=== PATIENT | male | born 1940 | race Caucasian/White ===

== ENCOUNTER → 2016-08-31 | Outpatient (CLI) | payer OTHER, MEDICARE ==
[~2016-08-31] MED LIST: ASPCH81 PO; ASPEC325 PO; ATOR-24 PO; BIOT1TAB5 PO; CETI10TA84 PO; CLC100 PO; DICL-201 PO; GLUC1CAP35 PO; LOSA50TA6 PO; MORP15TA19 PO; MULT-506 PO; OXYC-57 PO; SIMV10TA5 PO
[2016-08-31 17:02] LABS: BLOOD UREA NITROGEN 21 mg/dl (7-18); CREATININE 0.93 mg/dl (0.60-1.40)
== END | disposition home or self-care (01) ==
LOC: C.LABBC 12:32
PROVIDERS: ATTEND Internal Medicine
DX: R10.9 Unspecified abdominal pain (principal)

== ENCOUNTER → 2016-09-03 | Outpatient (CLI) | payer OTHER, MEDICARE ==
[~2016-09-03] MED LIST changes: +OPTIRAY 320 IV PRN
--- NOTE | 2016-09-03 11:07 | DIAGNOSTIC IMAGING REPORT ---
CT ABD/PELVIS IV AND ORAL CONT CLINICAL HISTORY: Left-sided abdominal pain COMPARISON STUDY: July 02, 2012 TECHNIQUE: Following the IV administration of 119 mL of Optiray-320, CT scan of the abdomen and pelvis was performed from the lung bases to the proximal femurs. Images are reviewed in the axial, sagittal, and coronal planes. IV contrast was administered without complication. CT DOSE: 432.17 mGy.cm FINDINGS: Lower chest: There are bibasal atelectatic changes. Liver: There is a 5 mm hypodensity within the left lobe of the liver superiorly, likely representing a cyst. The hepatic and portal veins appear patent. Gallbladder: Unremarkable. Spleen: Normal in size and attenuation. Pancreas: Unremarkable. Adrenal glands: Unremarkable. Kidneys: There are bilateral renal cysts the largest of which measures 9 mm the right and 17 mm on the left. There is a lower pole posterior right renal cortical scar with infiltration of the surrounding fat. This could relate to a prior ablation or surgery. Bowel: There are no transition zones indicate bowel obstruction. There is no evidence of acute diverticulitis. Scattered diverticula are identified. By history the appendix is absent. Peritoneum: There is no intraperitoneal free air or abdominal ascites. There is a small fat-containing left inguinal hernia. Vasculature: The abdominal aorta is normal in course and caliber. Adenopathy: None. Pelvic viscera: Multiple prostate implant seeds are visualized. Skeletal structures: There is bilateral L5 spondylolysis. There is a grade 1/4 spondylolisthesis of L5 on S1. IMPRESSION: 1. No evidence of bowel obstruction. No evidence of free air 2. Scattered colonic diverticula. No evidence of acute diverticulitis 3. Small fat-containing left inguinal hernia. 4. Bilateral renal cysts and right renal cortical scar Electronically signed by: Tiago Chanel M.D. 09/03/2016 11:05 AM Dictated Date/Time: 09/03/2016 10:56 AM
== END | disposition home or self-care (01) ==
LOC: C.CTS 10:03
PROVIDERS: ATTEND Internal Medicine
DX: R10.9 Unspecified abdominal pain (principal); N28.1 Cyst of kidney, acquired

== ENCOUNTER 2016-09-17 10:00 | Inpatient (IN) | payer OTHER, MEDICARE ==
--- NOTE | 2016-09-09 17:07 | HISTORY & PHYSICAL EXAMINATION ---
DATE OF ADMISSION: 09/17/2016 CHIEF COMPLAINT: Left knee pain and discomfort. HISTORY OF PRESENT ILLNESS: A 76-year-old gentleman, patient of Dr. Castillo who continues to work in [employer] who presents for treatment of his left knee. He has got a several year history of left knee pain and discomfort that has gotten significantly worse over the past 7 months. He has been through extensive conservative treatment. He has had knee injected which gave him about a week of relief and that is it. Pain is mostly medial. He has trouble doing his job. The more he walks, the more it hurts. The pain has become incapacitating. No mechanical symptoms, just pain. Takes Advil regularly which helps a bit minimal. He has also tried Voltaren as well as Voltaren gel. He would now like to proceed with surgical treatment. PAST MEDICAL HISTORY: 1. Hypertension. 2. Elevated cholesterol. 3. Arthritis. 4. Prostate cancer status post resection. PAST SURGICAL HISTORY: Include: 1. Umbilical hernia. 2. Brachytherapy for prostate. ALLERGIES: PENICILLIN AND IODINE. CURRENT MEDICATIONS: Include: 1. Oral Voltaren pills. 2. Voltaren gel. 3. Centrum Silver. 4. Low dose aspirin. 5. Atorvastatin. 6. Losartan. 7. Biotin. SOCIAL HISTORY: A 76-year-old male. He is a patient of Dr. Castillo. Does not smoke. FAMILY HISTORY: Noncontributory. REVIEW OF SYSTEMS: Negative for diabetes, neurologic problems, vascular problems, bleeding disorders. Denies any chest pain, no shortness of breath. No history of DVT or PE. PHYSICAL EXAMINATION: GENERAL: Physical examination reveals a healthy, pleasant, middle-aged male. He looks younger than his stated age. HEENT: Benign. NECK: Supple. No lymphadenopathy. LUNGS: Clear to auscultation. HEART: Has a regular rate and rhythm. ABDOMEN: Soft, nontender, nondistended. EXTREMITIES: Grossly neurovascularly intact except as follows: Examination of the left knee reveals the patient walks with a slight bit of a lump. He has got slight varus alignment to his knee. A small knee effusion. Range of motion is 5 degrees short of full extension and 125 degrees of flexion. No instability. No pain with hip motion. X-RAYS: His x-rays of the left knee were reviewed. It shows advanced medial compartment DJD. He has got chondrocalcinosis laterally. It has progressed since his films a couple months ago. 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 This has progressed significantly over the past 6 months. He has failed conservative treatment and would like to have his left knee replaced. PLAN: We talked about treatment and he would like to have his left knee replaced. The risks and benefits of left knee replacement were explained to the patient including but not limited to DVT, PE, , infection, neurological injury, vascular injury, bleeding problem, pain, limited range of motion, stiffness, failure to relieve his symptoms, incomplete relief of symptoms, need for further surgery in the future, fracture, leg length inequality, nerve palsy, etc. The patient understands and desires to proceed. Informed consent was obtained. The patient does have some type of bladder issue and will need to have his Anaya placed by the urologist. We will try and do him first case as we have to do under ultrasound. We have alerted them of that. As far as discharge plans, he is planning to be discharged to home using the [facility] home health program with his 's assistance. EDILMA
[2016-09-10 08:29] VITALS: BMI 26.0
--- NOTE | 2016-09-10 09:06 | PAT Medication Instructions ---
Service Date Sep 10, 2016. Current Home Medication List Aspirin (Aspirin Tab-Chewable *), 81 MG PO HS Atorvastatin (Lipitor), 40 MG PO HS Biotin (Biotin), 1 TAB PO Q2D Cetirizine (Zyrtec), 10 MG PO DAILY PRN for SEASONAL Diclofenac (Voltaren), 75 MG PO BID Docusate Sodium (Colace *), 100 MG PO BID Bdrxkcdjyzm-Absmvcubmgm-Izq C- (Glucosamine Chondroitin), 1 CAP PO QAM Losartan Potassium (Cozaar), 50 MG PO HS Multivitamin (Multivitamin), 1 TAB PO QAM Medication Instructions For Your Scheduled Surgery Diclofenac (Voltaren), 75 MG PO BID (per surgeon instructions) - Hold the following medications starting 09/11/16: Rqljtwboiin-Wzbzkrqydbu-Kfm C- (Glucosamine Chondroitin), 1 CAP PO QAM - Hold the following medications the morning of surgery: Multivitamin (Multivitamin), 1 TAB PO QAM Docusate Sodium (Colace *), 100 MG PO BID Biotin (Biotin), 1 TAB PO Q2D Cetirizine (Zyrtec), 10 MG PO DAILY PRN for SEASONAL - Hold the following medications as scheduled the night before surgery: Losartan Potassium (Cozaar), 50 MG PO HS - Take the following medications as scheduled the night before surgery: Docusate Sodium (Colace *), 100 MG PO BID Cetirizine (Zyrtec), 10 MG PO DAILY PRN for SEASONAL Atorvastatin (Lipitor), 40 MG PO HS Aspirin (Aspirin Tab-Chewable *), 81 MG PO HS If you have any questions please call us at [phone] (Mandy Villa PA-C) or [phone] or [phone]
[2016-09-10 09:28] LABS: BASO % 0.9 %; BASO ABS # 0.06 K/uL (0-0.2); COMPLETE YES; EOS % 2.3 %; HEMATOCRIT 45.1 % (42-52); LYMPH % 15.7 %; LYMPH ABS # 1.03 K/uL (1.2-3.4); MEAN CELL VOLUME 96.2 fL (80-100); MEAN CORPUSCULAR HEMOGLOBIN 32.8 pg (25-34); MEAN CORPUSCULAR HGB CONC 34.1 g/dl (32-36); MEAN PLATELET VOLUME 10.1 fL (7.4-10.4); MONO % 10.2 %; NEUT % 70.9 %; PLATELET COUNT 207 K/uL (130-400); RED BLOOD COUNT 4.69 M/uL (4.7-6.1); WHITE BLOOD COUNT 6.56 K/uL (4.8-10.8)
[2016-09-10 09:37] LABS: PARTIAL THROMBOPLASTIN RATIO 1.1; PROTHROMBIN TIME (PATIENT) 11.2 SECONDS (9.0-12.0)
[2016-09-10 09:56] LABS: CALCIUM 9.5 mg/dl (8.5-10.1); CREATININE 0.92 mg/dl (0.60-1.40); POTASSIUM 4.9 mmol/L (3.5-5.1)
--- NOTE | 2016-09-10 09:58 | DIAGNOSTIC IMAGING REPORT ---
CHEST PREADMISSION(PA/LAT) CLINICAL HISTORY: Preoperative chest COMPARISON STUDY: None FINDINGS: The heart is normal in size. There is no failure. There is no lobar consolidation. Left hemithorax opacities are nonspecific, likely relate to underlying rib/pleural abnormalities..[ IMPRESSION: 1. No active disease in the chest 2. Left hemithorax opacities, likely related to chronic underlying rib/pleural abnormalities. Electronically signed by: Tiago Chanel M.D. 09/10/2016 9:57 AM Dictated Date/Time: 09/10/2016 9:55 AM
[2016-09-17] VITALS (7 sets, daily range): BP systolic 123–157; BP diastolic 68–88; PULSE 58–88; TEMP 36.6–36.9; O2SAT 95–97; Ht 172.7 cm; Wt 77.7 kg
[~2016-09-17] VITALS: Ht 172.7 cm; Wt 77.7 kg
[~2016-09-17 10:00] MED LIST changes: +ACETAMINOPHEN 500 MG TAB PO SCH; -ASPEC325 PO; +BUPIVACAINE 0.25% 30 ML VIAL ONE; +BUPIVACAINE 0.5 % 5 MG/1 ML PF 10ML VIAL ONE; +BUPIVACAINE LIPOSOME 266 MG, BUPIVACAINE/EPINEPHRINE INJ 50 ML, SODIUM CHLORIDE 0.9% PF... INFIL SCH; +FAMOTIDINE 20 MG TAB PO SCH; +GABAPENTIN 300 MG CAP PO SCH; +LACTATED RINGER'S 1000ML 1,000 ML IV SCH; +LACTATED RINGER'S 1000ML IV SCH; +LACTATED RINGER'S 500 ML IV SCH; +METOCLOPRAMIDE HCL 10 MG TAB PO SCH; -MORP15TA19 PO; -OPTIRAY 320 IV PRN; -OXYC-57 PO; +SCOPOLAMINE 1.5 MG TDSY TD SCH; -SIMV10TA5 PO; +TRANEXAMIC ACID INJ 1,000 MG in SODIUM CHLORIDE 0.9% 100ML 100 ML IV SCH; +VANCOMYCIN INJ 1,200 MG in SODIUM CHLORIDE 0.9% 250ML 250 ML IV SCH
--- NOTE | 2016-09-17 10:29 | History & Physical Bridge Note ---
H&P Re-Evaluation Bridge Note: I have examined the patient, reviewed the History & Physical and in the interval since the performance of the History & Physical I have noted the following changes of clinical significance: No changes noted
[2016-09-17] MEDS ORDERED: SODIUM CHLORIDE 0.9% PF 50 ML VIAL ONE (10:45)
[2016-09-17] MEDS ORDERED: BACITRACIN 50000 UNIT VIAL ONE (10:45)
[2016-09-17] MEDS ORDERED: BUPIVACAINE/EPINEPHRINE 0.25% 1:200,000 30 ML VIAL ONE ×2 (10:45→11:07)
[2016-09-17] MEDS ORDERED: FENTANYL CITRATE INJ 50 MCG/1 ML 2 ML VIAL ONE ×2 (10:49→11:41)
[2016-09-17] MEDS ORDERED: MIDAZOLAM HCL 1 MG/ML 2ML VIAL ONE ×2 (10:49→11:41)
[2016-09-17] MEDS ORDERED: PROPOFOL IV EMULSION 10 MG/ML 20 ML VIAL IV ONE (11:41)
[2016-09-17] MEDS ORDERED: LIDOCAINE HCL 2% 2 ML VIAL (20MG/ML) ONE (11:41)
[2016-09-17] MEDS ORDERED: EpHEDrine SULFATE 50MG/5ML SYR ONE (15:24)
[2016-09-17] MEDS: CHECK SCOPOLAMINE PATCH PLACEMENT SCH (16:00)
--- NOTE | 2016-09-17 16:08 | [facility] Post Operative Brief Note ---
Immediate Operative Summary Operative Date Sep 17, 2016. Pre-Operative Diagnosis Advanced Left Knee Medial Compartment Degenerative Joint Disease and Chondrocalcinosis Post-Operative Diagnosis Advanced Left Knee Medial Compartment Degenerative Joint Disease and Chondrocalcinosis Procedure(s) Performed Flexible Cystoscopy, Anaya Catheter Placement -- Dr. Vallecillo (Procedure #1) Left Total Knee Arthroplasty--Dr. Gallego (Procedure #2) Surgeon Dr. Gallego Water Resource Engineer Surgeon(s) DEEPIKA Wright Estimated Blood Loss 50 cc Findings Left Knee DJD Fluids (cc crystalloids) 1600 cc Specimens A. Left Knee Bone and Tissue Drains None Anesthesia Spinal Complication(s) None Disposition Recovery Room / PACU
--- NOTE | 2016-09-17 16:08 | OPERATIVE REPORT ---
DATE OF OPERATION: 09/17/2016 DATE OF PROCEDURE: 09/17/2016. PROCEDURE PERFORMED: Cystoscopy, urethral dilation and Councill tip catheter placement. HISTORY OF PRESENTATION: The patient is a 76-year-old male who had previous history of brachytherapy and at that time he had a stricture that required catheterization with a cystoscopy and dilation. The patient at this time was having a joint replacement by Dr. Gallego who after the patient told him he had problems with his urethra requested that we be involved with placing the Anaya catheter preoperatively. DESCRIPTION OF THE PROCEDURE: The patient was taken to the operating room where He was prepped in usual standard fashion. He was given preoperative antibiotics for this joint 2 grams of Ancef. A flexible cystoscope was passed per urethra and he had what appeared to be a dense bulbar stricture. A guidewire was passed through the opening of the stricture into the bladder. The scope was passed over the guidewire dilating the stricture and then into the bladder. The dual flex guidewire was advanced into the bladder. The cystoscope was removed and a 16 [place] Councill tip catheter was passed over the guidewire and then the wire was removed and there was urine outflow. The bladder of the Anaya was instilled with 5 mL saline. The patient was attached to Anaya catheter balloon and the joint procedure was done. I attest to the content of the Intraoperative Record and any orders documented therein. Any exceptio ns are noted below.
[2016-09-17] MEDS ORDERED: TAMSULOSIN HCL 0.4 MG CAP PO PRN (16:15)
[2016-09-17] MEDS ORDERED: MAGNESIUM HYDROXIDE SUSP 30 ML UDC PO PRN (16:15)
[2016-09-17] MEDS ORDERED: SILVER SULFADIAZINE 1% CR 50 GM JAR EXT PRN (16:15)
[2016-09-17] MEDS ORDERED: NON-FORMULARY MEDICATION (Biotin 1 TAB) PO SCH (16:15)
[2016-09-17] MEDS ORDERED: METOCLOPRAMIDE HCL INJ 5 MG/ML 2 ML VIAL IV PRN (16:15)
[2016-09-17] MEDS ORDERED: ONDANSETRON INJ 2 MG/ML 2 ML VIAL IV PRN (16:15)
[2016-09-17] MEDS ORDERED: ALUMINUM/MAGNESIUM/SIMETH (MAALOX MAX) 30 ML UDC PO PRN (16:15)
[2016-09-17] MEDS ORDERED: BISACODYL 10 MG SUPP PR PRN (16:15)
[2016-09-17] MEDS ORDERED: MoRPHine SULFATE 2 MG/ML CARP IV PRN (16:15)
[2016-09-17] MEDS ORDERED: CETIRIZINE HCL 10 MG TAB PO PRN (16:15)
[2016-09-17] MEDS ORDERED: DiphenhydrAMINE HCL 50 MG/ML VIAL IV PRN (16:15)
--- NOTE | 2016-09-17 16:29 | Anesthesiology Progress Note ---
Anesthesia Post Op Note Date & Time Sep 17, 2016 at 16:29 Vital Signs Pain Intensity: 0 Vital Signs Past 12 Hours Date Time Temp Pulse Resp B/P Pulse Ox O2 Delivery O2 Flow Rate FiO2 09/17/16 16:20 71 16 117/62 99 Mask 5 09/17/16 16:16 36.2 75 16 108/68 99 Mask 5 09/17/16 10:35 36.6 88 18 157/88 97 Room Air Notes Mental Status: alert / awake / arousable, participated in evaluation Pt Amnestic to Procedure: Yes Nausea / Vomiting: adequately controlled Pain: adequately controlled Airway Patency, RR, SpO2: stable & adequate BP & HR: stable & adequate Hydration State: stable & adequate Neuraxial Anesthesia: was administered, sensory block is resolving Anesthetic Complications: no major complications apparent
--- NOTE | 2016-09-17 16:47 | DIAGNOSTIC IMAGING REPORT ---
LEFT KNEE 1 OR 2 VIEWS ROUTINE CLINICAL HISTORY: AP/LATERAL IN PACU LEFT KNEE joint replacement COMPARISON: None. DISCUSSION: Total left knee replacement. Prosthetic is in good position. Surgical drains are in position. There is no evidence for soft tissue swelling. IMPRESSION: Anatomic alignment status post total left knee replacement Electronically signed by: Obed Ureña M.D. 09/17/2016 4:46 PM Dictated Date/Time: 09/17/2016 4:46 PM
[2016-09-17] MEDS ORDERED: TRANEXAMIC ACID INJ 1,000 MG in SODIUM CHLORIDE 0.9% 100ML 100 ML IV SCH (19:00)
[2016-09-17] MEDS: FERROUS GLUCONATE 324 MG TAB PO SCH (19:09)
[2016-09-17] MEDS: D5W AND 1/2NSS + 20MEQ KCL 1,000 ML IV SCH (19:09)
[2016-09-17] MEDS: KETOROLAC TROMETHAMINE 15 MG/ML VIAL IV. SCH (19:10)
[2016-09-17] MEDS ORDERED: DOCUSATE SODIUM 100 MG CAP PO SCH (21:00)
--- NOTE | 2016-09-17 21:21 | OPERATIVE REPORT ---
DATE OF OPERATION: 09/17/2016 SURGEON: Juan Gallego MD STAFF PHYSICIAN: DEEPIKA Wright PREOPERATIVE DIAGNOSIS: Left knee degenerative joint disease. POSTOPERATIVE DIAGNOSIS: Same. PROCEDURE PERFORMED: 1. Left cemented posterior stabilized total knee arthroplasty. 2. A Anaya catheter placement via a cystoscopy done by Dr. Vallecillo. COMPLICATIONS: None. ESTIMATED BLOOD LOSS: 50 mL FLUID REPLACEMENT: 1600 mL crystalloid fluid replacement. TOURNIQUET TIME: 52 minutes at 300 mmHg. ANESTHESIA: Spinal with adductor canal block. DRAINS: None. SPECIMENS: Left knee sent for pathology. OPERATIVE INDICATIONS: The patient is a 76-year-old very active gentleman, who has had a pretty long history of left knee pain and discomfort, followed by my partner Dr. Correa. He has been through extensive conservative treatment. The pain has become more and more debilitating and unresponsive to conservative therapy and he elected to proceed with a left total knee arthroplasty. Of note, the patient has a history of a urethral stricture. Urology was consulted to place a Anaya catheter. That portion of the dictation will be dictated by Dr. Vallecillo. OPERATIVE FINDINGS: Operative findings revealed advanced left knee DJD. He did have grade 4 kyde-lx-bfvu disease in the medial compartment, pretty extensively in the medial femoral condyle and more focal areas of the medial tibial plateau. He did not have any significant eburnation. He had a moderate size joint effusion and a varus deformity to his knee. OPERATIVE IMPLANTS: Operative implants consisted of: 1. Biomet Vanguard size 67.5 left posterior stabilized femoral component. 2. Biomet size 75 tibial tray. 3. A 14 mm posterior stabilized polyethylene insert. 4. A 34 x 8.5 all poly patella. OPERATIVE PROCEDURE: The patient taken to the operating room, identified and placed on the operating table in supine position. All contact areas were appropriately padded. IV antibiotics were provided by anesthesia team. A spinal anesthetic and adductor canal block had been provided in the holding area. Dr. Vallecillo then performed his portion of the procedure. He did a cystoscopy and placed a catheter in the bladder and then placed a Anaya catheter over that. That will be dictated as a separate operative report by him. Once this was complete, a left thigh tourniquet was then placed. The left lower extremity was then prepped and draped in the usual sterile fashion. The left leg was elevated and exsanguinated with Esmarch and tourniquet was placed at 300 mmHg. An anterior approach to the left knee was then performed through a longitudinal incision centered over the patella. Sharp dissection was carried through the subcutaneous tissues down to the level of the extensor mechanism. A medial parapatellar arthrotomy incision was made. Some subperiosteal dissection was carried out medially. The fat pad was resected from beneath the patellar tendon. The lateral patellofemoral ligament was released. The patella was everted and the knee was flexed. The osteophytes were taken off the distal femur. The ACL and PCL were then released from the distal femur. The tibia subluxated anteriorly. The external tibial alignment jig was then placed in the anterior face of the tibia and adjusted 14 mm medially. Proximal tibial cut was made to remove about 3 to 4 mm of bone from the most deficient aspect of the medial tibial plateau. I did take a little more bone away, as he did not have a whole lot of wear in his knee. The tibia was then sized to a size 75. Attention was then drawn to the femur. The distal femur was entered with a sharp drill. The intramedullary canal was suctioned. A left 6-degree valgus cutting guide was placed. Distal femoral cutting block was pinned in place. Distal femoral cut was made to take an additional 3 mm of bone off the distal femur. The femur was then sized to a size 67.5. We did downsize this slightly. The AP cutting block was then pinned parallel to the epicondylar axis, which was 6 degrees of external rotation. The anterior cut, anterior chamfer, posterior cut, posterior chamfer cuts were made. Box cutting guide was placed and adjusted slightly lateral and a box cut was made. The knee was then flexed. The remnants of the medial and lateral menisci were excised. The osteophytes were taken off the posterior aspect of the femur. A trial femoral component was placed. The tibial tray was pinned in maximum external rotation and drill and stem punch were used to create the defect in the proximal tibia for the tibial tray. The knee was then trialed and the 14 mm polyethylene insert fit most appropriately. Attention was then drawn to the patella. The patella was cleaned of all soft tissues. Patella thickness measured 25 mm, cut down to 15. It was sized to a size 34 patella. Lug holes were drilled for a 34 patella. Lateral osteophytes were removed. Patella button was placed. The knee was taken through a range of motion and the patella tracked nicely with no thumbs test. Attention was then drawn toward placement of permanent components. All trial components were removed. The knee was irrigated with copious amounts of pulsatile lavage solution. A bone plug was placed in the distal femur to limit blood loss. A double batch of Palacos G cement was mixed. A left size 67.5 posterior stabilized femoral component, size 75 tibial tray, a 14 mm posterior stabilized polyethylene insert, and a 34 x 8.5 all poly patella were then cemented in place. The knee was brought out into full extension until the cement hardened. A final cement check was then performed. Pericapsular tissues were injected with 100 mL of a combination of 20 mL of Exparel, 30 mL of normal saline, 50 mL of 0.25% Marcaine. The tourniquet was then let down for a final tourniquet time of 52 minutes. Hemostasis was assured with the use of electrocautery. The extensor mechanism was then closed with a combination of #1PDS suture and a #1 Vicryl suture in a smizet-jw-riaje fashion. Extensor mechanism was checked and found to be intact. The subcutaneous tissues were then closed with 2-0 Dexon suture in a buried interrupted fashion. Skin was closed skin kristin. The leg was then cleaned and dried and a sterile dressing with Xeroform, 4 x 4, sterile cast padding and Vasyl bandage were applied. The patient then transferred to the recovery room in stable condition. The patient tolerated the procedure well with no complications. All needle and sponge counts were correct at the end of the operation. I attest to the content of the Intraoperative Record and any orders documented therein. Any exceptio ns are noted below.
[2016-09-17] MEDS ORDERED: VANCOMYCIN INJ 1,200 MG in SODIUM CHLORIDE 0.9% 250ML 250 ML IV SCH (22:00)
[2016-09-17] MEDS: ATORVASTATIN 40 MG TAB PO SCH (22:11)
[2016-09-17] MEDS: ASPIRIN 325 MG ECTAB PO SCH (22:11)
[2016-09-17] MEDS: SULFAMETHOXAZOLE/TRIMETHOPRIM DS 800/160MG TAB PO SCH (22:11)
[2016-09-17] MEDS: DOCUSATE SODIUM 100 MG CAP PO SCH (22:12)
[2016-09-17] MEDS: ACETAMINOPHEN 500 MG TAB PO SCH (22:12)
[2016-09-17] MEDS: LOSARTAN POTASSIUM 50 MG TAB PO SCH (22:12)
[2016-09-18] MEDS: CHECK SCOPOLAMINE PATCH PLACEMENT SCH ×4 (00:06→23:29)
[2016-09-18] MEDS: KETOROLAC TROMETHAMINE 15 MG/ML VIAL IV. SCH ×4 (02:00→20:13)
[2016-09-18] MEDS: ZOLPIDEM TARTRATE 5 MG TAB PO PRN ×2 (02:00→23:28)
[2016-09-18 03:51] VITALS: BP 99/61; PULSE 61; TEMP 37; O2SAT 96
[2016-09-18] MEDS: ACETAMINOPHEN 500 MG TAB PO SCH ×3 (05:48→21:07)
[2016-09-18] MEDS: D5W AND 1/2NSS + 20MEQ KCL 1,000 ML IV SCH ×2 (05:48→15:36)
[2016-09-18 06:15] LABS: HEMATOCRIT 36.1 % (42-52); MEAN CORPUSCULAR HGB CONC 34.1 g/dl (32-36); MEAN PLATELET VOLUME 9.5 fL (7.4-10.4); PLATELET COUNT 189 K/uL (130-400); RED BLOOD COUNT 3.84 M/uL (4.7-6.1); WHITE BLOOD COUNT 9.22 K/uL (4.8-10.8)
[2016-09-18 06:51] LABS: BUN/CREATININE RATIO 19.9 (10-20); CALCIUM 8.1 mg/dl (8.5-10.1); CREATININE 0.85 mg/dl (0.60-1.40); POTASSIUM 4.2 mmol/L (3.5-5.1)
[2016-09-18 07:00] VITALS: BP 121/74; PULSE 66; TEMP 37.3; O2SAT 93
[2016-09-18] MEDS ORDERED: MORP15TA19 PO (08:40)
[2016-09-18] MEDS ORDERED: OXYC-57 PO (08:40)
[2016-09-18] MEDS ORDERED: ASPEC325 PO (08:40)
--- NOTE | 2016-09-18 08:42 | Discharge Instructions ---
Discharge Instructions Admission Reason for Admission: Left Knee Degenerative Joint Disease Discharge Discharge Diagnosis / Problem: Left KNee Replacement Discharge Goals Goal(s): Decrease discomfort, Improve function, Increase independence, Improve disease control, Therapeutic intervention Activity Recommendations Activity Limitations: per Instructions/Follow-up section Weightbearing Status: Left weightbearing . Instructions / Follow-Up Instructions / Follow-Up ACTIVITY RECOMMENDATIONS: Physical Therapy: * You will go to physical therapy three times each week for four to six weeks after your surgery in order to regain your knee range of motion and to retrain your knee to work properly. * It is just as important to make sure you are getting your knee perfectly straight as it is to regain your knee bend. * Taking a pain pill an hour before therapy can help you have a more productive and comfortable therapy session. Home Exercise: * You were shown a series of exercises (heel props, heel slides, etc.) in the hospital. Do these exercises three to four times each day including the exercises you were shown in physical therapy. Walking: * Get up and walk several times each day. For the first four weeks, try not to stand or walk for more than one hour at a time. If you do stand or walk for more than one hour, you will not hurt anything, but your knee and leg will likely swell. * As you feel comfortable, you may change from the walker or crutches to a cane and then to independent walking. MEDICATIONS: New Medicine: * You will likely be taking one or more of these medications: 1. MS Contin - A long-acting pain medication. Take 1 tablet twice a day for the first ten days to decrease your baseline level of pain. 2. Percocet - A quick and shorter-acting pain medication. Take one to two tablets every four to six hours to lessen your pain. 3. Aspirin - Thins your blood to lessen the chance of forming a blood clot. * The most common side effects of pain medicine and iron are nausea and constipation. If nausea or constipation is too much of a problem or if you have any questions about your new medicines or doses, call [facility] at . We will try to help you manage these issues. VERY IMPORTANT TO READ AND REVIEW" Pain: * The immediate post-operative period after knee replacement surgery is often quite painful. * You are given a prescription for pain medicine. You should take it, as directed, when you need it, especially before physical therapy and before going to bed. Pain that interferes with sleep is very common and can last several months. * You will likely need pain medicine for the first four to six weeks. It will not stop all of the pain. The pain will lessen and as you feel better, you may change to milder pain medicine such as Tylenol. * The most common side effects of pain medicine are nausea and constipation, so don't take more than you need. SPECIAL CARE INSTRUCTIONS: TEDs/Elastic Stockings: * The white elastic stockings help limit swelling and prevent blood clots from forming in your legs. The more you wear them, the more they work. * Wear them for six weeks after knee replacement surgery and four weeks after partial knee replacement. Prevention of Infection: * Take antibiotics one hour before any dental cleaning, dental work, urological procedure, gastrointestinal procedure or any invasive surgery in order to prevent your new joint from getting infected. * You may get the antibiotics from the doctor performing the procedure or you may call our office at before and we will call in a prescription to the pharmacy of your choice. Things to Watch For: * Drainage from the incision site that occurs more than one week after your surgery. * Severely increased knee/leg pain or swelling. * Increased redness at the incision site. * Fever above 102 degrees Fahrenheit. * Unusual chest pain or shortness of breath. * Unusual pain or burning with urination. Call [facility] at with any of the above problems or if you have any questions about your medicines or recovery. FOLLOW UP VISIT: Make an appointment to see your doctor for approximately two weeks after surgery for a progress check and staple removal by calling the office at . Current Hospital Diet Patient's current hospital diet: Regular Diet Discharge Diet Recommended Diet: Regular Diet Procedures Procedures Performed: Flexible Cystoscopy, Anaya Catheter Placement -- Dr. Vallecillo (Procedure #1) Left Total Knee Arthroplasty--Dr. Gallego (Procedure #2) Pending Studies Studies pending at discharge: no Medical Emergencies . Who to Call and When: Medical Emergencies: If at any time you feel your situation is an emergency, please call [phone] immediately. . Non-Emergent Contact Non-Emergency issues call your: Surgeon . "Provider Documentation" section prepared by Juan Gallego. VTE Core Measure Inpt VTE Proph given/why not?: Other Anticoagulation, T.E.Nicanor Christianson, SCD's
--- NOTE | 2016-09-18 08:45 | PROGRESS NOTE ---
DATE: 09/18/2016 DATE: 09/18/2016. SUBJECTIVE: A 76-year-old gentleman postop day 1 from a left knee replacement. He is doing pretty well. Pain is controlled. No chest pain or shortness of breath. Not feeling dizzy or lightheaded. OBJECTIVE: VITAL SIGNS: Temperature 37.7. Vital signs stable. PHYSICAL EXAMINATION: GENERAL: Reveals a healthy, pleasant, middle-aged male. He is sitting up in bed and looks comfortable. LUNGS: Clear to auscultation. HEART: Regular rate and rhythm. ABDOMEN: Soft, nontender, nondistended. EXTREMITY EXAMINATION: Grossly neurovascularly intact except as follows: Examination of the left lower extremity reveals the leg to be well aligned. Dressing is clean, dry, and intact. He can dorsiflex and plantarflex his foot appropriately. He is neurologically intact. LABORATORY DATA: Hemoglobin 12.3, hematocrit 36.1. Electrolytes are stable. ASSESSMENT: A 76-year-old gentleman postop day 1 from a left knee replacement, doing pretty well. He had a Anaya catheter placed by Dr. Vallecillo. PLAN: 1. DVT prophylaxis including thigh-high TEDs, SCDs, and aspirin twice a day. 2. PT/OT. Weightbearing as tolerated. Left total knee protocol. 3. Pain control. Doing pretty well with current pain regimen. 4. Anaya catheter. It has been recommended by Dr. Vallecillo to leave this in until tomorrow. We will leave it in until tomorrow. He recommended covering him with some antibiotics at least while the Anaya is in. We will do that with Bactrim. 5. Disposition: He is planning to be discharged to home with home health once adequately recovered.
[2016-09-18] MEDS: PANTOprazole SOD 40 MG TAB PO SCH (09:00)
[2016-09-18] MEDS ORDERED: MULTIVITAMIN TAB PO SCH (09:00)
[2016-09-18] MEDS: ASPIRIN 325 MG ECTAB PO SCH ×2 (10:41→21:06)
[2016-09-18] MEDS: FERROUS GLUCONATE 324 MG TAB PO SCH ×3 (10:41→18:27)
[2016-09-18] MEDS: SULFAMETHOXAZOLE/TRIMETHOPRIM DS 800/160MG TAB PO SCH ×2 (10:42→21:06)
[2016-09-18] MEDS: DOCUSATE SODIUM 100 MG CAP PO SCH ×2 (10:42→21:06)
[2016-09-18] MEDS: MULTIVITAMIN TAB PO SCH (10:43)
[2016-09-18] MEDS: TRAMADOL HCL 50 MG TAB PO PRN (10:53)
[2016-09-18 12:00] VITALS: BP 144/80; PULSE 60; TEMP 36.9; O2SAT 91
[2016-09-18 15:10] VITALS: BP 127/85; PULSE 78; TEMP 36.9; O2SAT 92
[2016-09-18] MEDS: ATORVASTATIN 40 MG TAB PO SCH (21:06)
[2016-09-18] MEDS: LOSARTAN POTASSIUM 50 MG TAB PO SCH (21:07)
[2016-09-18 23:15] VITALS: BP 118/64; PULSE 75; TEMP 37.1; O2SAT 91
[2016-09-19] MEDS: KETOROLAC TROMETHAMINE 15 MG/ML VIAL IV. SCH ×2 (02:00→06:14)
[2016-09-19] MEDS: ACETAMINOPHEN 500 MG TAB PO SCH (05:57)
[2016-09-19 06:41] VITALS: BP 156/81; PULSE 81; TEMP 37.1; O2SAT 93
[2016-09-19] MEDS: DOCUSATE SODIUM 100 MG CAP PO SCH (07:46)
[2016-09-19] MEDS: FERROUS GLUCONATE 324 MG TAB PO SCH (07:46)
[2016-09-19] MEDS: MULTIVITAMIN TAB PO SCH (07:47)
[2016-09-19] MEDS: ASPIRIN 325 MG ECTAB PO SCH (07:47)
[2016-09-19] MEDS: PANTOprazole SOD 40 MG TAB PO SCH (07:47)
[2016-09-19] MEDS: SULFAMETHOXAZOLE/TRIMETHOPRIM DS 800/160MG TAB PO SCH (07:48)
[2016-09-19] MEDS: TRAMADOL HCL 50 MG TAB PO PRN (07:49)
--- NOTE | 2016-09-19 08:33 | PROGRESS NOTE ---
DATE: 09/19/2016 DATE: 09/19/2016. SUBJECTIVE: A 76-year-old male postop day 2 from a left knee replaced. He is doing pretty well. Pain has been reasonably well controlled. Therapy went well. No chest pain or shortness of breath. Not feeling dizzy or lightheaded. OBJECTIVE: VITAL SIGNS: Temperature is 37.1. Vital signs stable. PHYSICAL EXAMINATION: GENERAL: Physical examination reveals a healthy, pleasant, middle-aged male. He is sitting up in bed and looks pretty comfortable. LUNGS: Clear to auscultation. HEART: Regular rate and rhythm. ABDOMEN: Soft, nontender, nondistended. EXTREMITY EXAMINATION: Grossly neurovascularly intact except as follows: Examination of the left lower extremity reveals the leg to be well aligned. Some mild swelling. He can dorsiflex and plantarflex his foot appropriately. Calf is soft and supple. ASSESSMENT: A 76-year-old gentleman postop day 2 from a left knee replacement, doing pretty well. Pain is controlled. PLAN: 1. DVT prophylaxis including thigh-high TEDs, SCDs, and aspirin twice a day. 2. PT/OT. Weightbearing as tolerated. Left total knee protocol. 3. Pain control. Doing pretty well with current pain regimen. 4. Disposition: Plan to discharge to home with some home health once adequately recovered.
[2016-09-19 09:39] VITALS: BP 156/81; PULSE 81; TEMP 37.1; O2SAT 93
--- NOTE | 2016-09-22 14:24 | DISCHARGE SUMMARY ---
ADMITTING PHYSICIAN AND SURGEON: Dr. Gallego. ADMITTING DIAGNOSIS: Left knee degenerative joint disease. SURGERY PERFORMED: 1. Left total knee replacement. 2. Anaya catheter placement done by Dr. Vallecillo. SECONDARY DIAGNOSES: Hypertension, elevated cholesterol, arthritis and prostate cancer. CONSULTS: None obtained. HOSPITAL COURSE: The patient was admitted on 09/17/2016 underwent total knee arthroplasty. He initially at the beginning of the procedure underwent a cystoscopy with catheter placement by Dr. Vallecillo. He then underwent total knee arthroplasty, tolerated the procedure well. There were no complications. He was transferred to the PACU postoperatively and later to the orthopedic floor for further care. He was given vancomycin for antibiotic prophylaxis. It was also recommended that the Anaya catheter be left in place until postoperative day 2 and that he receive antibiotics while this is in so he did receive Bactrim as well. He received CHRISTINE stockings, SCDs and aspirin for DVT prophylaxis. Hemoglobin, hematocrit and vital signs were monitored during his hospital stay and remained stable. He developed some mild postoperative anemia, did not require any blood transfusions. There were no complications. By postoperative day 2, he was tolerating a general diet, pain was controlled with oral pain medicine. He was participating in physical therapy and had no signs or symptoms of deep vein thrombosis. On postop day 2, he was discharged home in good condition, set up with home health services, given printed discharge instructions including new prescriptions for aspirin 325 mg b.i.d., MS Contin and Percocet. Continue his home medications with the exception of his home dose of aspirin which was changed. Continue physical therapy, weightbearing as tolerated. CHRISTINE stockings and follow up in 10-12 days or sooner if there are problems or concerns.
== END 2016-09-19 10:15 | disposition home health service (06) | DRG 470 ==
LOC: ENRESERVDT → ENRESERVTM → C.ACU 10:00 → C.MSW 10:20
PROVIDERS: ADMIT Orthopaedic Surgery Sports Medicine; ATTEND Orthopaedic Surgery Sports Medicine
PROC: 0SRD0J9 Replacement of Left Knee Joint with Synthetic Substitute, Cemented, Open Approach (ICD-10-PCS; principal; 2016-09-17 12:30)
PROC: 0T7D8DZ Dilation of Urethra with Intraluminal Device, Via Natural or Artificial Opening Endoscopic (ICD-10-PCS; 2016-09-17 12:30)
DX: M17.12 Unilateral primary osteoarthritis, left knee (principal); M11.262 Other chondrocalcinosis, left knee; N99.114 Postprocedural urethral stricture, male, unspecified; I10 Essential (primary) hypertension; E78.00 Pure hypercholesterolemia, unspecified; Z85.46 Personal history of malignant neoplasm of prostate; Z90.79 Acquired absence of other genital organ(s); Z79.1 Long term (current) use of non-steroidal anti-inflammatories (NSAID); Z79.82 Long term (current) use of aspirin; Z88.0 Allergy status to penicillin

== ENCOUNTER → 2016-10-07 | Outpatient (CLI) | payer OTHER, MEDICARE ==
[~2016-10-07] MED LIST changes: -ACETAMINOPHEN 500 MG TAB PO SCH; -ASPCH81 PO; +ASPEC325 PO; -BUPIVACAINE 0.25% 30 ML VIAL ONE; -BUPIVACAINE 0.5 % 5 MG/1 ML PF 10ML VIAL ONE; -BUPIVACAINE LIPOSOME 266 MG, BUPIVACAINE/EPINEPHRINE INJ 50 ML, SODIUM CHLORIDE 0.9% PF... INFIL SCH; -FAMOTIDINE 20 MG TAB PO SCH; -GABAPENTIN 300 MG CAP PO SCH; -LACTATED RINGER'S 1000ML 1,000 ML IV SCH; -LACTATED RINGER'S 1000ML IV SCH; -LACTATED RINGER'S 500 ML IV SCH; -METOCLOPRAMIDE HCL 10 MG TAB PO SCH; +OXYC-57 PO; -SCOPOLAMINE 1.5 MG TDSY TD SCH; -TRANEXAMIC ACID INJ 1,000 MG in SODIUM CHLORIDE 0.9% 100ML 100 ML IV SCH; -VANCOMYCIN INJ 1,200 MG in SODIUM CHLORIDE 0.9% 250ML 250 ML IV SCH
== END | disposition home or self-care (01) ==
LOC: C.LABBC 08:59
PROVIDERS: ATTEND Internal Medicine
DX: E78.00 Pure hypercholesterolemia, unspecified (principal)

== ENCOUNTER → 2017-02-10 | Outpatient (CLI) | payer OTHER, MEDICARE ==
[~2017-02-10] MED LIST changes: -OXYC-57 PO
[2017-02-10 11:04] LABS: CHOLESTEROL/HDL RATIO 2.9
== END | disposition home or self-care (01) ==
LOC: C.LABBC 08:45
PROVIDERS: ATTEND Internal Medicine
DX: E78.00 Pure hypercholesterolemia, unspecified (principal)

== ENCOUNTER → 2017-08-09 | Outpatient (CLI) | payer OTHER, MEDICARE ==
[2017-08-09 11:15] LABS: BASO % 0.5 %; BASO ABS # 0.03 K/uL (0-0.2); EOS % 3.2 %; EOS ABS # 0.21 K/uL (0-0.5); HEMATOCRIT 45.6 % (42-52); HEMOGLOBIN 15.3 g/dL (14.0-18.0); IG# 0.01 K/uL (0.00-0.02); LYMPH % 20.2 %; LYMPH ABS # 1.32 K/uL (1.2-3.4); MEAN CELL VOLUME 95.6 fL (80-100); MEAN CORPUSCULAR HEMOGLOBIN 32.1 pg (25-34); MEAN CORPUSCULAR HGB CONC 33.6 g/dl (32-36); MONO % 10.3 %; MONO ABS # 0.67 K/uL (0.11-0.59); NEUT % 65.6 %; NEUT ABS # 4.28 K/uL (1.4-6.5); PLATELET COUNT 217 K/uL (130-400); RED CELL DISTRIBUTION WIDTH CV 14.1 % (11.5-14.5); RED CELL DISTRIBUTION WIDTH SD 49.6 fL (36.4-46.3); WHITE BLOOD COUNT 6.52 K/uL (4.8-10.8)
[2017-08-09 11:39] LABS: ALBUMIN 3.8 gm/dl (3.4-5.0); ALKALINE PHOSPHATASE 129 U/L (45-117); AST/SGOT 26 U/L (15-37); BLOOD UREA NITROGEN 21 mg/dl (7-18); CARBON DIOXIDE 30 mmol/L (21-32); CREATININE 0.77 mg/dl (0.60-1.40); GLUCOSE 105 mg/dl (70-99); POTASSIUM 3.7 mmol/L (3.5-5.1); SODIUM 142 mmol/L (136-145); TOTAL PROTEIN 7.2 gm/dl (6.4-8.2)
[2017-08-09 11:46] LABS: ALT/SGPT 56 U/L (12-78)
== END | disposition home or self-care (01) ==
LOC: C.LABBC 08:27
PROVIDERS: ATTEND Urology
DX: R39.9 Unspecified symptoms and signs involving the genitourinary system (principal); I10 Essential (primary) hypertension; E55.9 Vitamin D deficiency, unspecified

== ENCOUNTER → 2018-03-07 | Outpatient (CLI) | payer OTHER, MEDICARE | END | disposition home or self-care (01) | LOC: C.LABBC 08:32 | PROVIDERS: ATTEND Internal Medicine | DX: E78.00 Pure hypercholesterolemia, unspecified (principal); E55.9 Vitamin D deficiency, unspecified ==

== ENCOUNTER 2020-07-17 12:29 | Inpatient (IN) ==
[2020-07-17] MEDS ORDERED: diphenhydrAMINE 50 MG/ML VIAL IV STA (12:56)
[2020-07-17] MEDS ORDERED: methylPREDNISolone 125 MG/2 ML VIAL IV STA (12:56)
[2020-07-17] MEDS ORDERED: ONDANSETRON INJ 2 MG/ML 2 ML VIAL IV STA (12:56)
[2020-07-17 13:39] LABS: Hematocrit (blood only) 43.6 % (42-52); Hemoglobin 14.6 g/dL (14.0-18.0); Immature Granulocytes # (auto) 0.01 K/uL (0.00-0.02); Immature Granulocytes % (auto) 0.2 %; Lymphocytes # (auto) 0.81 K/uL (1.2-3.4); Lymphocytes % (auto) 19.7 %; Mean Corpuscular Hemoglobin 31.8 pg (25-34); Mean Corpuscular Hgb Conc 33.5 g/dL (32-36); Mean Platelet Volume 9.9 fL (7.4-10.4); Monocytes # (auto) 0.45 K/uL (0.11-0.59); Monocytes % (auto) 10.9 %; Neutrophils # (auto) 2.84 K/uL (1.4-6.5); Neutrophils % (auto) 69.2 %; Platelet Count 141 K/uL (130-400); RDW Coefficient of Variation 13.6 % (11.5-14.5); RDW Standard Deviation 47.4 fL (36.4-46.3); Red Blood Count 4.59 M/uL (4.7-6.1); White Blood Count 4.11 K/uL (4.8-10.8)
[2020-07-17 13:50] LABS: INR 1.1 (0.9-1.1); Partial Thromboplastin Ratio 1.2; Partial Thromboplastin Time 32.8 Seconds (21.0-31.0); Prothrombin Time 11.6 Seconds (9.0-12.0)
[2020-07-17 13:54] LABS: D Dimer 700 ug/L FEU (0-500)
--- NOTE | 2020-07-17 13:56 | Emergency Department Note ---
History of Present Illness General Chief complaint: Cardiac Assessment Stated complaint: chest pain, fatigue Time Seen by Provider: 07/17/20 12:38 History of Present Illness Provider complaint: Fatigue Onset (ago): day(s) 10 Location: abdomen Radiation: non-radiation Severity: mild Pain Consistency: + constant Quality: + aching Relieved By: + none Exacerbated By: + none Associated symptoms: + nausea/vomiting; no chest pain, no cough, no fever/chills, no headaches and no shortness of breath 80-year-old male presents emergency department for fatigue. Patient states for the last 10 days he has been feeling increasingly fatigued. He reports he is been having increased indigestion also. He reports pain in the epigastric area that radiates to his chest. Patient has a history of small bowel obstruction. No difficulty breathing. No fevers. No hematuria dysuria melena or hematochezia. Home Medications Medication Instructions Recorded Confirmed Type biotin 1 mg tablet 1 mg PO Q2D tab 03/16/19 07/17/20 History cetirizine 10 mg tablet 10 mg PO DAILY PRN tab 03/16/19 07/17/20 History docusate sodium 100 mg capsule 100 mg PO BID 03/16/19 07/17/20 History multivit,Ca,min-iron 8 mg-folic 1 tab PO DAILY tab 03/16/19 07/17/20 History acid 200 mcg-lycopene 600 mcg tablet clindamycin phosphate 1 % topical 1 appln TOPICAL .APPLY SPARINGLY 06/05/19 07/17/20 History solution TO A #1 ml tramadol 50 mg tablet 50 mg PO Q6H PRN #30 tab 09/18/19 07/17/20 Rx atorvastatin 80 mg tablet 80 mg PO QPM #90 tab 10/03/19 07/17/20 Rx losartan 50 mg tablet 50 mg PO DAILY #90 tab 11/21/19 07/17/20 Rx desonide 0.05 % topical cream 1 applic TOPICAL BID #15 g 03/25/20 07/17/20 Rx nystatin-triamcinolone 100,000 1 applic TOPICAL BID #15 g 03/25/20 07/17/20 Rx unit/gram-0.1 % topical ointment aspirin [Aspirin Low Dose] 81 mg PO DAILY 07/17/20 07/17/20 History Allergies Allergy/AdvReac Type Severity Reaction Status Date / Time Penicillins Allergy Unknown HIVES Verified 07/17/20 14:32 SHASHI Inhibitors Allergy cough Verified 07/17/20 14:32 iodine AdvReac Mild vomiting Verified 07/17/20 14:32 shellfish derived AdvReac Mild VOMIT Verified 07/17/20 14:32 Past Med/Surg History Medical History (Updated 07/17/20 @ 20:02 by Shin Mendiola) Anaphylaxis due to shellfish Aortic atherosclerosis seen on AAA screen History of basal cell carcinoma Hypercholesterolemia Hypertension Impaired fasting glucose Prostate cancer treated with neoadjuvant hormone therapy, brachytherapy, external beam radiat ion Right knee DJD Seborrheic dermatitis Tubular adenoma of colon Vitamin D deficiency Surgical History History of appendectomy History of left knee replacement History of tonsillectomy History of vasectomy Social History Smoking Status: Former smoker Age Started Using Tobacco: 18; Age Quit Using Tobacco: 68; Years Smoked: 48; Number of Years Since Quit: 11; Hx Alcohol Use: Yes Alcohol type: wine Hx Substance Use: No Preferred Language: Nauruan Communication Ability: Effective Hearing Ability: Hard of Hearing Bun Panner Required: No Beliefs That Will Affect Care: None marital status: Current Living Situation: Spouse Current Living Situation Comment: Other Information That Helps Us Care for You: No Feels Safe at Home: Yes Safety Concerns: Feels Safe At This Time Dental Care, Regularly: Yes Physical Activity Frequency: 3-4 Times per Week Assistive Devices: Denture - Upper, Denture - Lower, Glasses and Hearing Aid - Bilateral Review of Systems A total of 10 systems reviewed and were otherwise negative Physical Exam Vital Signs Vital Signs - 24 hr 07/17/20 12:32 07/17/20 13:21 07/17/20 13:26 Temperature 36.7 C Temperature Source Oral Pulse Rate 85 Pulse Rate [Apical] Respiratory Rate 18 Respiratory Effort / Characteristics Non-Labored Non-Labored Respiratory Depth Normal Blood Pressure 141/86 H Blood Pressure [Left Arm] Blood Pressure Mean 104 Blood Pressure Mean [Left Arm] Pulse Oximetry 95 96 96 Oxygen Delivery Method Room Air Room Air Room Air Oxygen Flow Rate Sepsis Recent Fever Within 48 Hours No Sepsis New/Unexplained Change in Mental Status No Sepsis Action Taken by Nursing No Action Required Oxygen Flow Rate - Titration Pulse Oximetry Post Tiitration 07/17/20 14:30 07/17/20 15:12 07/17/20 16:00 Temperature Temperature Source Pulse Rate Pulse Rate [Apical] 86 85 Respiratory Rate 18 18 Respiratory Effort / Characteristics Respiratory Depth Blood Pressure Blood Pressure [Left Arm] 163/90 H 142/90 H Blood Pressure Mean Blood Pressure Mean [Left Arm] 114 107 Pulse Oximetry 92 87 L 96 Oxygen Delivery Method Room Air Room Air Nasal Cannula Nasal Cannula Oxygen Flow Rate 0 2 Sepsis Recent Fever Within 48 Hours Sepsis New/Unexplained Change in Mental Status Sepsis Action Taken by Nursing Oxygen Flow Rate - Titration 2 Pulse Oximetry Post Tiitration 93 Physical Exam GENERAL: He is oriented to person, place, and time. He appears well-developed and well-nourished. He does not appear distressed. HENT: Exam performed. - Head: Normocephalic and atraumatic. - Right Ear: External ear normal. No mastoid tenderness. - Left Ear: External ear normal. No mastoid tenderness. - Mouth/Throat: The oropharynx is clear and moist. No trismus in the jaw. No dental abscesses or uvula swelling. No oropharyngeal exudate or tonsillar abscesses. EYES: Conjunctivae and EOM are normal. Pupils are equal, round, and reactive to light. Right eye exhibits no discharge. Left eye exhibits no discharge. No scleral icterus. NECK: Normal range of motion. Neck supple. No JVD present. No spinous process tenderness present. No carotid bruit present. No rigidity. No tracheal deviation and normal range of motion present. No Brudzinski's sign and no Kernig's sign noted. CV: Normal rate, regular rhythm, normal heart sounds and intact distal pulses. There is no peripheral edema. Palpable radial pulses bue. PULM/CHEST: Effort normal and breath sounds normal. No respiratory distress. No stridor. He has no wheezes. He has no rales. - Chest Wall: He exhibits no tenderness. ABD: The abdomen is soft. Surgical scars over the abdomen. Bowel sounds are normal. He has no distension. No mass is present. There is tenderness to palpation of the epigastric area. There is no rebound, no guarding, no Camejo's sign and no tenderness at McBurney's point. Rovsig negative. MUSC/SKEL: Normal range of motion. There is no peripheral edema, tenderness or deformity. LYMPH: No cervical adenopathy. NEURO: He is alert and oriented to person, place, and time. He has normal strength. No cranial nerve deficit or sensory deficit. Coordination and gait normal. GCS eye subscore is 4. GCS verbal subscore is 5. GCS motor subscore is 6. Cerebellar tests wnl. SKIN: Skin is warm and dry. He is not diaphoretic. PSYCH: He has a normal mood and affect. Behavior is normal. Judgment and thought content normal. Male Course Course 1238: The patient was evaluated in room B6. A complete history and physical exam was performed. Patient was seen in full airborne precautions. Patient was seen in N95's, gloves, gowns, face shield by myself and staff. Cardiac monitoring: An order was placed for continuous cardiac monitoring. The monitor shows a rate of 80 with sinus rhythm 1519: Patient is COVID-19 positive. CTA of the chest negative for PE. There are multifocal airspace opacities consistent with a viral pneumonia. CT head and C-spine negative. D-dimer is elevated at 700. Patient became hypoxic on room air, his oxygen saturations improved with supplemental oxygen via nasal cannula. Patient treated with Decadron 6 mg IV push. Given the patient's hypoxia, positive COVID-19 swab, and is age, patient will be admitted to the hospital. [facility] hospitalist Dr. Feldman will admit the patient. Administered Medications Ioversol (Optiray 320 125ml) 119 ml IV ONCE ONE Stop: 07/17/20 14:47 Last Admin: 07/17/20 14:47 Dose: 119 ml Documented by: [id number] Discontinued Medications Dexamethasone (Dexamethasone Sod Inj 10 Mg/Ml Vial) 6 mg IV NOW ONE Stop: 07/17/20 15:16 Last Admin: 07/17/20 16:15 Dose: 6 mg Documented by: [id number] Diphenhydramine HCl (Diphenhydramine 50 Mg/Ml Vial) 25 mg IV NOW STA Stop: 07/17/20 12:57 Last Admin: 07/17/20 13:14 Dose: 25 mg Documented by: [id number] Methylprednisolone (Methylprednisolone 125 Mg/2 Ml Vial) 125 mg IV NOW STA Stop: 07/17/20 12:57 Last Admin: 07/17/20 13:14 Dose: 125 mg Documented by: [id number] Ondansetron HCl (Ondansetron Inj 2 Mg/Ml 2 Ml Vial) 4 mg IV NOW STA Stop: 07/17/20 12:57 Last Admin: 07/17/20 13:13 Dose: 4 mg Documented by: [id number] Critical Care Time Critical Care Time: Yes Total Critical Care Time: 48 I have personally spent greater than 48 minutes of critical care time in the direct management of this patient. This includes bedside care, interpretation of diagnostic studies, and testing, discussion with consultants, patient, and family members, and other required patient management activities. This 48 minutes is in excess of all separately billable procedures. Medical Decision Making Laboratory Data Result diagrams: 07/17/20 13:21 07/17/20 13:21 Lab Results 07/17/20 07/17/20 07/17/20 Range/Units 13:21 13:21 13:21 WBC 4.11 L (4.8-10.8) K/uL RBC 4.59 L (4.7-6.1) M/uL Hgb 14.6 (14.0-18.0) g/dL Hct 43.6 (42-52) % MCV 95.0 (80-100) fL MCH 31.8 (25-34) pg MCHC 33.5 (32-36) g/dL RDW Std Deviation 47.4 H (36.4-46.3) fL RDW Coeff of Gregory 13.6 (11.5-14.5) % Plt Count 141 (130-400) K/uL MPV 9.9 (7.4-10.4) fL Immature Gran % (Auto) 0.2 % Neut % (Auto) 69.2 % Lymph % (Auto) 19.7 % [place] % (Auto) 10.9 % Eos % (Auto) 0.0 % Baso % (Auto) 0.0 % Neut # (Auto) 2.84 (1.4-6.5) K/uL Lymph # (Auto) 0.81 L (1.2-3.4) K/uL [place] # (Auto) 0.45 (0.11-0.59) K/uL Eos # (Auto) 0.00 (0-0.5) K/uL Baso # (Auto) 0.00 (0-0.2) K/uL Immature Gran # (Auto) 0.01 (0.00-0.02) K/uL PT (9.0-12.0) Seconds INR (0.9-1.1) APTT (21.0-31.0) Seconds PTT Ratio D-Dimer (0-500) ug/L FEU Sodium 140 (136-145) mmol/L Potassium 4.1 (3.5-5.1) mmol/L Chloride 105 (98-107) mmol/L Carbon Dioxide 31 (21-32) mmol/L Anion Gap 4.0 (3-11) BUN 20 H (7-18) mg/dl Creatinine 0.71 (0.6-1.4) mg/dl Est Cr Clr Drug Dosing 77.6 ml/min Est GFR ( Amer) 101.3 Est GFR (Non-Af Amer) 87.4 BUN/Creatinine Ratio 28.7 H (10-20) Glucose 86 (70-99) mg/dl Lactate (0.4-2.0) mmol/L Calcium 8.8 (8.5-10.1) mg/dl Magnesium 1.9 (1.8-2.4) mg/dl Total Bilirubin 0.6 (0.2-1) mg/dl AST 35 (15-37) U/L ALT 51 (12-78) U/L Alkaline Phosphatase 97 (45-117) U/L Troponin I < 0.015 (0-0.045) ng/ml Total Protein 6.9 (6.4-8.2) gm/dl Albumin 3.3 L (3.4-5.0) gm/dl Globulin 3.6 (2.5-4.0) gm/dl Albumin/Globulin Ratio 0.9 (0.9-2) Lipase 140 (73-393) U/L Procalcitonin < 0.05 (0-0.5) ng/ml COVID-19 Eval Order SARS-CoV-2, RNA, NAAT (NEGATIVE) 07/17/20 07/17/20 07/17/20 Range/Units 13:21 13:21 13:24 WBC (4.8-10.8) K/uL RBC (4.7-6.1) M/uL Hgb (14.0-18.0) g/dL Hct (42-52) % MCV (80-100) fL MCH (25-34) pg MCHC (32-36) g/dL RDW Std Deviation (36.4-46.3) fL RDW Coeff of Gregory (11.5-14.5) % Plt Count (130-400) K/uL MPV (7.4-10.4) fL Immature Gran % (Auto) % Neut % (Auto) % Lymph % (Auto) % [place] % (Auto) % Eos % (Auto) % Baso % (Auto) % Neut # (Auto) (1.4-6.5) K/uL Lymph # (Auto) (1.2-3.4) K/uL [place] # (Auto) (0.11-0.59) K/uL Eos # (Auto) (0-0.5) K/uL Baso # (Auto) (0-0.2) K/uL Immature Gran # (Auto) (0.00-0.02) K/uL PT 11.6 (9.0-12.0) Seconds INR 1.1 (0.9-1.1) APTT 32.8 H (21.0-31.0) Seconds PTT Ratio 1.2 D-Dimer 700 H* (0-500) ug/L FEU Sodium (136-145) mmol/L Potassium (3.5-5.1) mmol/L Chloride (98-107) mmol/L Carbon Dioxide (21-32) mmol/L Anion Gap (3-11) BUN (7-18) mg/dl Creatinine (0.6-1.4) mg/dl Est Cr Clr Drug Dosing ml/min Est GFR ( Amer) Est GFR (Non-Af Amer) BUN/Creatinine Ratio (10-20) Glucose (70-99) mg/dl Lactate 1.1 (0.4-2.0) mmol/L Calcium (8.5-10.1) mg/dl Magnesium (1.8-2.4) mg/dl Total Bilirubin (0.2-1) mg/dl AST (15-37) U/L ALT (12-78) U/L Alkaline Phosphatase (45-117) U/L Troponin I (0-0.045) ng/ml Total Protein (6.4-8.2) gm/dl Albumin (3.4-5.0) gm/dl Globulin (2.5-4.0) gm/dl Albumin/Globulin Ratio (0.9-2) Lipase (73-393) U/L Procalcitonin (0-0.5) ng/ml COVID-19 Eval [facility] SARS-CoV-2, RNA, NAAT (NEGATIVE) 07/17/20 Range/Units 13:24 WBC (4.8-10.8) K/uL RBC (4.7-6.1) M/uL Hgb (14.0-18.0) g/dL Hct (42-52) % MCV (80-100) fL MCH (25-34) pg MCHC (32-36) g/dL RDW Std Deviation (36.4-46.3) fL RDW Coeff of Gregory (11.5-14.5) % Plt Count (130-400) K/uL MPV (7.4-10.4) fL Immature Gran % (Auto) % Neut % (Auto) % Lymph % (Auto) % [place] % (Auto) % Eos % (Auto) % Baso % (Auto) % Neut # (Auto) (1.4-6.5) K/uL Lymph # (Auto) (1.2-3.4) K/uL [place] # (Auto) (0.11-0.59) K/uL Eos # (Auto) (0-0.5) K/uL Baso # (Auto) (0-0.2) K/uL Immature Gran # (Auto) (0.00-0.02) K/uL PT (9.0-12.0) Seconds INR (0.9-1.1) APTT (21.0-31.0) Seconds PTT Ratio D-Dimer (0-500) ug/L FEU Sodium (136-145) mmol/L Potassium (3.5-5.1) mmol/L Chloride (98-107) mmol/L Carbon Dioxide (21-32) mmol/L Anion Gap (3-11) BUN (7-18) mg/dl Creatinine (0.6-1.4) mg/dl Est Cr Clr Drug Dosing ml/min Est GFR ( Amer) Est GFR (Non-Af Amer) BUN/Creatinine Ratio (10-20) Glucose (70-99) mg/dl Lactate (0.4-2.0) mmol/L Calcium (8.5-10.1) mg/dl Magnesium (1.8-2.4) mg/dl Total Bilirubin (0.2-1) mg/dl AST (15-37) U/L ALT (12-78) U/L Alkaline Phosphatase (45-117) U/L Troponin I (0-0.045) ng/ml Total Protein (6.4-8.2) gm/dl Albumin (3.4-5.0) gm/dl Globulin (2.5-4.0) gm/dl Albumin/Globulin Ratio (0.9-2) Lipase (73-393) U/L Procalcitonin (0-0.5) ng/ml COVID-19 Eval Order SARS-CoV-2, RNA, NAAT POSITIVE A* (NEGATIVE) Imaging Data Radiologist's Impression: CT ANGIOGRAPHY OF THE CHEST, PULMONARY EMBOLUS PROTOCOL CLINICAL HISTORY: Weakness. Fatigue. COMPARISON STUDY: Chest radiograph performed earlier today. TECHNIQUE: Following IV administration of 119 mL of Optiray-320, helical axial images of the chest were obtained utilizing the pulmonary embolus protocol. Maximal intensity projections and sagittal and coronal reformats were viewed on an independent 3D workstation. IV contrast was administered without complication. Automated exposure control was utilized for the study. A dose lowering technique was utilized adhering to the principles of ALARA. CT DOSE: 1104.12 mGycm FINDINGS: No pulmonary emboli are identified although the segmental and subsegmental pulmonary arteries are suboptimally assessed due to respiratory motion. There is cardiomegaly. No pericardial effusion is noted. Several ca lcified subcarinal lymph nodes indicating previous granulomatous process. A prominent right paratracheal lymph node is likely benign. Central airways are patent. Lungs are suboptimally assessed given respiratory motion. Moderate multifocal groundglass opacities within the lungs are noted. Note is made of a 1.1 x 0.7 cm nodular opacity within the left lower lobe on image 125 of 266. There are calcified granulomas within the lungs. There is no pneumothorax or pleural effusion. Multiple left-sided rib fractures are present. There is mild dilatation of the aorta at the level of the diaphragmatic hiatus, measuring 3.2 cm. IMPRESSION: 1. No pulmonary emboli identified although segmental and subsegmental pulmonary arteries suboptimally assessed given respiratory motion artifact. 2. Moderate multifocal airspace opacities within the lungs consistent with viral pneumonia. 3. 1.1 x 0.7 cm nodular opacity within the left lower lobe. This may be infectious or represent a mucoid impacted bronchus. However, a follow up chest CT in 3 months is recommended to exclude the possibility of a pulmonary nodule. 4. Moderate cardiomegaly. ACT 112: Positive. There are findings on this exam that require communication between the performing entity and the patient following Patient Test Result Information Act ([place] Act 112) guidelines. Electronically signed by: Alexander Jordan M.D. 07/17/2020 2:57 PM Dictated: 07/17/205Transcribed: 07/17/201445 CT SCAN OF THE BRAIN WITHOUT IV CONTRAST CLINICAL HISTORY: Weakness. Fatigue. COMPARISON STUDY: CT of the brain dated 07/13/2016. TECHNIQUE: Unenhanced axial CT scan of the brain is performed from the vertex to the skull base. A dose lowering technique was utilized adhering to the principles of ALARA. CT DOSE: 788.63 mGycm FINDINGS: Brain parenchyma: A focus of right temporal encephalomalacia is consistent with a remote insult. There are age-related involutional changes noting mild subcortical and periventricular microangiopathic change. There is no hemorrhage, mass effect, or evidence of acute territorial ischemia by CT criteria. Velez- white matter differentiation is preserved. No extra-axial fluid collection is seen. Ventricles, sulci, cisterns: Prominent secondary to involutional change. Intracranial vasculature: There is atherosclerotic calcification of the cavernous carotid and vertebral arteries. Calvarium: Unremarkable. Sinuses and mastoids: The visualized paranasal sinuses are clear. The mastoid air cells are well pneumatized. Orbits: The bony orbits are grossly intact. There are bilateral ocular lens implants. IMPRESSION: There is no hemorrhage, mass effect, or evidence of acute territorial ischemia by CT criteria. ACT 112: Negative or not required by law. Electronically signed by: Marin Griffin M.D. 07/17/2020 2:45 PM Dictated: 07/17/20 1443Transcribed: 07/17/201442 CT SCAN OF THE ABDOMEN AND PELVIS WITH IV CONTRAST CLINICAL HISTORY: Fatigue. Weakness. Generalized abdominal pain. COMPARISON STUDY: Abdominal CT dated 09/03/2016. TECHNIQUE: Following the IV administration of 119 cc of Optiray 320, CT scan of the abdomen and pelvis is performed from the lung bases to the proximal femora. Images are reviewed in the axial, sagittal, and coronal planes. IV contrast was administered without complication. A dose lowering technique was utilized adhering to the principles of ALARA. FINDINGS: Lung bases: The heart is top normal in size and without pericardial effusion. The coronary arteries are densely calcified. There is a small hiatal hernia. Patchy groundglass consolidation is seen at both lung bases. No pleural effusion is identified. There are scattered calcified granulomas. Liver: The contrast-enhanced liver is normal in size, contour, and attenuation. There is no intrahepatic biliary ductal dilatation. The hepatic veins and portal veins are patent. Gallbladder: Unremarkable. Spleen: Normal in size and attenuation. There are scattered calcified splenic granulomas. Pancreas: Unremarkable. Adrenal glands: Unremarkable. Kidneys: The contrast enhanced kidneys demonstrate mild cortical atrophy and are without hydronephrosis. The kidneys enhance symmetrically. Bilateral renal cysts measure up to 1.8 cm. Additional subcentimeter cortical hypodensities also likely represent cysts but are too small for definitive characterization. Abdominal vasculature: There is moderate atherosclerotic calcification and mild ectasia of the abdominal aorta. Bowel: There is mild to moderate colonic diverticulosis without CT evidence of acute diverticulitis. No bowel obstruction is seen. The appendix is not identified and reported surgically absent. Peritoneum: There is no intraperitoneal free air or abdominal ascites. There is evidence of previous ventral hernia repair. Lymphadenopathy: None. Pelvic viscera: The prostate gland is diminutive and heterogeneous with brachytherapy implants in place. The bladder is normal as visualized. There are bilateral fat-containing inguinal hernias. Skeletal structures: The skeletal structures are osteopenic. There are bilateral pars defects at L5 with moderate disc space narrowing and 8 mm anterolisthesis at L5-S1. There is moderate to advanced lumbosacral spondylosis. No lytic or blastic lesions are seen. There are healed left-sided rib fractures. IMPRESSION: 1. There are no acute infectious or inflammatory findings in the abdomen or pelvis. 2. Patchy ground glass consolidation at both lung bases is consistent with an infectious pneumonitis. Clinical correlation will be required. 3. Mild to moderate colonic diverticulosis without CT evidence of acute diverticulitis. 4. Additional findings as above. ACT 112: Negative or not required by law. Electronically signed by: Marin Griffin M.D. 07/17/2020 3:09 PM Dictated: 07/17/20 1450Transcribed: 07/17/20 145 XR chest 1V portable HISTORY: SEPSIS COMPARISON: Chest 09/10/2016. FINDINGS: The heart is borderline enlarged. No pleural effusions. No pneumothorax. Old, healed left-sided rib fractures. The right lung appears clear. Questionable hazy density within the left mid to lower lung. This could be due to overlapping soft tissue. IMPRESSION: Questionable hazy density within the left mid to lower lung zone which could be due to overlapping soft tissue. This is better appreciated on the same day chest CTA. ACT 112: Negative or not required by law. Electronically signed by: Mj Escobar M.D. 07/17/2020 2:01 PM Dictated: 07/17/20 1359Transcribed: 07/17/20 135 ECG Data Indication: + abdominal pain and + weakness Rate (beats per minute): 78 Rhythm: + normal sinus ECG Intervals/blocks: + Normal QRS, + Normal FL and + Normal QT-c ECG ST segments: + Normal ST segments MDM Narrative 1238: The patient was evaluated in room B6. A complete history and physical exam was performed. Patient was seen in full airborne precautions. Patient was seen in N95's, gloves, gowns, face shield by myself and staff. Cardiac monitoring: An order was placed for continuous cardiac monitoring. The monitor shows a rate of 80 with sinus rhythm 1519: Patient is COVID-19 positive. CTA of the chest negative for PE. There are multifocal airspace opacities consistent with a viral pneumonia. CT head and C-spine negative. D-dimer is elevated at 700. Patient became hypoxic on room air, his oxygen saturations improved with supplemental oxygen via nasal cannula. Patient treated with Decadron 6 mg IV push. Given the patient's hypoxia, positive COVID-19 swab, and is age, patient will be admitted to the hospital. [facility] hospitalist Dr. Feldman will admit the patient. Impression & Plan Hypoxia, COVID-19 Discharge Plan Visit Data Chief Complaint: Cardiac Assessment Stated Complaint: chest pain, fatigue ED Provider: Shin Mendiola Discharge Problem: Hypoxia, COVID-19 Patient Disposition: Admitted As Inpatient Discharge Instructions Interventions: ED Discharge Assessment Last Done: 07/17/20 18:15
[2020-07-17 13:57] LABS: Alanine Aminotransferase 51 U/L (12-78); Albumin Level 3.3 gm/dl (3.4-5.0); Aspartate Aminotransferase 35 U/L (15-37); BUN Creatinine Ratio 28.7 (10-20); Blood Urea Nitrogen 20 mg/dl (7-18); Calcium 8.8 mg/dl (8.5-10.1); Carbon Dioxide 31 mmol/L (21-32); Chloride 105 mmol/L (98-107); Creatinine Clr Calc Pharmacy 77.6 ml/min; Est GFR (African American) 101.3; Est GFR (Non-African American) 87.4; Glucose 86 mg/dl (70-99); Lipase 140 U/L (73-393); Magnesium 1.9 mg/dl (1.8-2.4); Potassium 4.1 mmol/L (3.5-5.1); Sodium 140 mmol/L (136-145)
[2020-07-17 14:02] LABS: Albumin Globulin Ratio 0.9 (0.9-2); Alkaline Phosphatase 97 U/L (45-117); Bilirubin,Total 0.6 mg/dl (0.2-1); Globulin 3.6 gm/dl (2.5-4.0); Total Protein 6.9 gm/dl (6.4-8.2); Troponin I < 0.015 ng/ml (0-0.045)
--- NOTE | 2020-07-17 14:03 | XRay Report ---
XR chest 1V portable HISTORY: SEPSIS COMPARISON: Chest 09/10/2016. FINDINGS: The heart is borderline enlarged. No pleural effusions. No pneumothorax. Old, healed left-s ided rib fractures. The right lung appears clear. Questionable hazy density within the left mid to lo wer lung. This could be due to overlapping soft tissue. IMPRESSION: Questionable hazy density within the left mid to lower lung zone which could be due to overlapping so ft tissue. This is better appreciated on the same day chest CTA. ACT 112: Negative or not required by law. Electronically signed by: Mj Escobar M.D. 07/17/2020 2:01 PM
[2020-07-17] MEDS ORDERED: OPTIRAY 320 125ml IV ONE (14:46)
--- NOTE | 2020-07-17 14:47 | CT Scan Report ---
CT SCAN OF THE BRAIN WITHOUT IV CONTRAST CLINICAL HISTORY: Weakness. Fatigue. COMPARISON STUDY: CT of the brain dated 07/13/2016. TECHNIQUE: Unenhanced axial CT scan of the brain is performed from the vertex to the skull base. A do se lowering technique was utilized adhering to the principles of ALARA. CT DOSE: 788.63 mGycm FINDINGS: Brain parenchyma: A focus of right temporal encephalomalacia is consistent with a remote insult. Ther e are age-related involutional changes noting mild subcortical and periventricular microangiopathic change. There is no hemorrhage, mass effect, or evidence of acute territorial ischemia by CT criteria . Velez-white matter differentiation is preserved. No extra-axial fluid collection is seen. Ventricles, sulci, cisterns: Prominent secondary to involutional change. Intracranial vasculature: There is atherosclerotic calcification of the cavernous carotid and vertebr al arteries. Calvarium: Unremarkable. Sinuses and mastoids: The visualized paranasal sinuses are clear. The mastoid air cells are well pneu matized. Orbits: The bony orbits are grossly intact. There are bilateral ocular lens implants. IMPRESSION: There is no hemorrhage, mass effect, or evidence of acute territorial ischemia by CT geovanny castaneda. ACT 112: Negative or not required by law. Electronically signed by: Marin Griffin M.D. 07/17/2020 2:45 PM
--- NOTE | 2020-07-17 14:59 | CT Scan Report ---
CT ANGIOGRAPHY OF THE CHEST, PULMONARY EMBOLUS PROTOCOL CLINICAL HISTORY: Weakness. Fatigue. COMPARISON STUDY: Chest radiograph performed earlier today. TECHNIQUE: Following IV administration of 119 mL of Optiray-320, helical axial images of the chest we re obtained utilizing the pulmonary embolus protocol. Maximal intensity projections and sagittal and coronal reformats were viewed on an independent 3D workstation. IV contrast was administered withou t complication. Automated exposure control was utilized for the study. A dose lowering technique wa s utilized adhering to the principles of ALARA. CT DOSE: 1104.12 mGycm FINDINGS: No pulmonary emboli are identified although the segmental and subsegmental pulmonary arter ies are suboptimally assessed due to respiratory motion. There is cardiomegaly. No pericardial effusi on is noted. Several calcified subcarinal lymph nodes indicating previous granulomatous process. A pr ominent right paratracheal lymph node is likely benign. Central airways are patent. Lungs are subopti saranya assessed given respiratory motion. Moderate multifocal groundglass opacities within the lungs a re noted. Note is made of a 1.1 x 0.7 cm nodular opacity within the left lower lobe on image 125 of 2 66. There are calcified granulomas within the lungs. There is no pneumothorax or pleural effusion. Mu ltiple left-sided rib fractures are present. There is mild dilatation of the aorta at the level of th e diaphragmatic hiatus, measuring 3.2 cm. IMPRESSION: 1. No pulmonary emboli identified although segmental and subsegmental pulmonary arteries suboptimally assessed given respiratory motion artifact. 2. Moderate multifocal airspace opacities within the lungs consistent with viral pneumonia. 3. 1.1 x 0.7 cm nodular opacity within the left lower lobe. This may be infectious or represent a muc oid impacted bronchus. However, a follow up chest CT in 3 months is recommended to exclude the possib ility of a pulmonary nodule. 4. Moderate cardiomegaly. ACT 112: Positive. There are findings on this exam that require communication between the performing entity and the patient following Patient Test Result Information Act ([place] Act 112) guidelines. Electronically signed by: Alexander Jordan M.D. 07/17/2020 2:57 PM
--- NOTE | 2020-07-17 15:11 | CT Scan Report ---
CT SCAN OF THE ABDOMEN AND PELVIS WITH IV CONTRAST CLINICAL HISTORY: Fatigue. Weakness. Generalized abdominal pain. COMPARISON STUDY: Abdominal CT dated 09/03/2016. TECHNIQUE: Following the IV administration of 119 cc of Optiray 320, CT scan of the abdomen and pelv is is performed from the lung bases to the proximal femora. Images are reviewed in the axial, sagitta l, and coronal planes. IV contrast was administered without complication. A dose lowering technique w as utilized adhering to the principles of ALARA. FINDINGS: Lung bases: The heart is top normal in size and without pericardial effusion. The coronary arteries a re densely calcified. There is a small hiatal hernia. Patchy groundglass consolidation is seen at bot h lung bases. No pleural effusion is identified. There are scattered calcified granulomas. Liver: The contrast-enhanced liver is normal in size, contour, and attenuation. There is no intrahepa tic biliary ductal dilatation. The hepatic veins and portal veins are patent. Gallbladder: Unremarkable. Spleen: Normal in size and attenuation. There are scattered calcified splenic granulomas. Pancreas: Unremarkable. Adrenal glands: Unremarkable. Kidneys: The contrast enhanced kidneys demonstrate mild cortical atrophy and are without hydronephros is. The kidneys enhance symmetrically. Bilateral renal cysts measure up to 1.8 cm. Additional subcent imeter cortical hypodensities also likely represent cysts but are too small for definitive characteri zation. Abdominal vasculature: There is moderate atherosclerotic calcification and mild ectasia of the abdomi nal aorta. Bowel: There is mild to moderate colonic diverticulosis without CT evidence of acute diverticulitis. No bowel obstruction is seen. The appendix is not identified and reported surgically absent. Peritoneum: There is no intraperitoneal free air or abdominal ascites. There is evidence of previous ventral hernia repair. Lymphadenopathy: None. Pelvic viscera: The prostate gland is diminutive and heterogeneous with brachytherapy implants in delia ce. The bladder is normal as visualized. There are bilateral fat-containing inguinal hernias. Skeletal structures: The skeletal structures are osteopenic. There are bilateral pars defects at L5 w ith moderate disc space narrowing and 8 mm anterolisthesis at L5-S1. There is moderate to advanced vandana mbosacral spondylosis. No lytic or blastic lesions are seen. There are healed left-sided rib fracture s. IMPRESSION: 1. There are no acute infectious or inflammatory findings in the abdomen or pelvis. 2. Patchy ground glass consolidation at both lung bases is consistent with an infectious pneumonitis. Clinical correlation will be required. 3. Mild to moderate colonic diverticulosis without CT evidence of acute diverticulitis. 4. Additional findings as above. ACT 112: Negative or not required by law. Electronically signed by: Marin Griffin M.D. 07/17/2020 3:09 PM
[2020-07-17] MEDS ORDERED: DEXAMETHASONE SOD INJ 10 MG/ML VIAL IV ONE (15:15)
[2020-07-17] MEDS ORDERED: traMADol HCL 50 MG TABLET PO PRN ×2 (16:25→16:35)
[2020-07-17] MEDS ORDERED: CETIRIZINE HCL 10 MG TABLET PO PRN (16:28)
[2020-07-17] MEDS ORDERED: ACETAMINOPHEN 325 MG TAB PO PRN (16:29)
[2020-07-17] MEDS ORDERED: ZOLPIDEM TARTRATE 5 MG TAB PO PRN (16:34)
--- NOTE | 2020-07-17 17:05 | History & Physical Report ---
Date of Service July 17, 2020 Assessment & Plan (1) COVID-19 virus RNA detected: Mr. Fink is an 80 year old male with a history of Hypertension, Hypercholesterolemia, Aortic Atherosclerosis, Impaired Fasting Glucose, Tubular Adenoma of the Colon, Osteoarthritis, and Prostate Cancer s/p External Beam Radiation, Brachytherapy, and Neoadjuvant Hormone Therapy who presented to [facility] ER 07/17/2020 complaining of significant fatigue which began about 10 days ago. Patient states that on 07/07/2020 he was in his usual state of health but then developed upper abdominal discomfort that radiated to his lower chest - he describes it as "indigestion" with mild nausea which lasted about 5 minutes in total. He denies any associated symptoms at the time -- specifically denying any associated vomiting, dyspnea, or diaphoresis. He then began to feel fatigued afterwards, and that fatigue has progressed and persisted until now. This fatigue is why his made him come in to be evaluated (she is a nurse). Patient denies any fevers, chills, cough, or sputum production. He denies any SOB, DANIELS, orthopnea, PND, or hemoptysis. He denies any headache, stiff neck, abdominal pain, or any urinary symptoms. His evaluation thus far shows: -- Mild lymphocytopenia. -- Elevated D-dimer (no evidence of PE on CT Scan). -- Infiltrate consistent with viral pneumonia on Chest CT. -- SARS Co-V 2 positive. -- Patient was transiently hypoxic with SpO2 of 87% and current O2 saturations are > 92% on 2L O2 via nasal cannula. 1. Admit to isolation room with appropriate precautions. 2. Continue supplemental O2 for O2 sat > 94%. 3. Received IV Decadron 6 mg in the ER. 4. Continue Decadron 6 mg p.o. daily. 5. Remdesivir is not indicated, nor is convalescent plasma. 6. Monitor daily labs, obtain Sputum C&S, Gram Stain. 7. Blood cultures have already been drawn. (2) Hypoxia: -- Patient was transiently hypoxic in the ER, resolved with supplemental O2. -- Likely secondary to lung infiltrates. -- Management as outlined above. (3) Infiltrate of lung present on computed tomography: -- Secondary to problem #1. -- Manage as outlined above. (4) Hypertension: -- Continue Losartan 50 mg daily. (5) Hypercholesterolemia: -- Continue Atorvastatin 80 mg daily. -- Continue Aspirin 81 mg daily. History of Present Illness Chief Complaint: -- Fatigue. -- COVID 19 Positive. -- Transient hypoxia. Primary Care Provider: Letitia Jordan MD Mr. Fink is an 80 year old male with a history of Hypertension, Hypercholesterolemia, Aortic Atherosclerosis, Impaired Fasting Glucose, Tubular Adenoma of the Colon, Osteoarthritis, and Prostate Cancer s/p External Beam Radiation, Brachytherapy, and Neoadjuvant Hormone Therapy who presented to [facility] ER 07/17/2020 complaining of significant fatigue which began about 10 days ago. Patient states that on 07/07/2020 he was in his usual state of health but then developed upper abdominal discomfort that radiated to his lower chest - he describes it as "indigestion" with mild nausea which lasted about 5 minutes in total. He denies any associated symptoms -- specifically denying any associated vomiting, dyspnea, or diaphoresis. He then began to feel fatigued afterwards, and that fatigue has worsened and persisted. This fatigue is why his made him come in to be evaluated (she is a nurse). Patient denies any fevers, chills, cough, or sputum production. He denies any SOB, DANIELS, orthopnea, PND, or hemoptysis. He denies any headache, stiff neck, abdominal pain, or any urinary symptoms. His evaluation thus far show a mild lymphocytopenia, elevated D-dimer (no evidence of PE on CT Scan) -- however he has an infiltrate consistent with viral pneumonia. He is also SARS Co-V 2 positive. He was also transiently hypoxic with SpO2 of 87%. Current O2 saturations are > 92% on 2L O2 via nasal cannula. Allergies Allergy/AdvReac Type Severity Reaction Status Date / Time Penicillins Allergy Unknown HIVES Verified 07/17/20 14:32 SHASHI Inhibitors Allergy cough Verified 07/17/20 14:32 iodine AdvReac Mild vomiting Verified 07/17/20 14:32 shellfish derived AdvReac Mild VOMIT Verified 07/17/20 14:32 Home Medications Medication Instructions Recorded Confirmed Type biotin 1 mg tablet 1 mg PO Q2D tab 03/16/19 07/17/20 History cetirizine 10 mg tablet 10 mg PO DAILY PRN tab 03/16/19 07/17/20 History docusate sodium 100 mg capsule 100 mg PO BID 03/16/19 07/17/20 History multivit,Ca,min-iron 8 mg-folic 1 tab PO DAILY tab 03/16/19 07/17/20 History acid 200 mcg-lycopene 600 mcg tablet clindamycin phosphate 1 % topical 1 appln TOPICAL .APPLY SPARINGLY 06/05/19 07/17/20 History solution TO A #1 ml tramadol 50 mg tablet 50 mg PO Q6H PRN #30 tab 09/18/19 07/17/20 Rx atorvastatin 80 mg tablet 80 mg PO QPM #90 tab 10/03/19 07/17/20 Rx losartan 50 mg tablet 50 mg PO DAILY #90 tab 11/21/19 07/17/20 Rx desonide 0.05 % topical cream 1 applic TOPICAL BID #15 g 03/25/20 07/17/20 Rx nystatin-triamcinolone 100,000 1 applic TOPICAL BID #15 g 03/25/20 07/17/20 Rx unit/gram-0.1 % topical ointment aspirin [Aspirin Low Dose] 81 mg PO DAILY 07/17/20 07/17/20 History dexamethasone 6 mg PO DAILY #7 tab 07/19/20 Rx Past Med/Surg History Medical History (Updated 07/20/20 @ 00:05 by Yoana Kelley) Anaphylaxis due to shellfish Aortic atherosclerosis seen on AAA screen History of basal cell carcinoma Hypercholesterolemia Hypertension Hypoxia Impaired fasting glucose Prostate cancer treated with neoadjuvant hormone therapy, brachytherapy, external beam radia tion Right knee DJD Seborrheic dermatitis Tubular adenoma of colon Vitamin D deficiency Surgical History History of appendectomy History of left knee replacement History of tonsillectomy History of vasectomy Social History Smoking Status: Former smoker Age Started Using Tobacco: 18; Age Quit Using Tobacco: 68; Years Smoked: 50; Number of Years Since Quit: 11; Hx Alcohol Use: Yes Alcohol type: wine Hx Substance Use: No Preferred Language: Polish Communication Ability: Effective Hearing Ability: Hard of Hearing Bar Host Required: No Beliefs That Will Affect Care: None marital status: Current Living Situation: Spouse Current Living Situation Comment: Feels Safe at Home: Yes Dental Care, Regularly: Yes Physical Activity Frequency: 3-4 Times per Week Assistive Devices: None Physical Exam Physical Exam: GENERAL: Patient in no acute distress. HEENT: Head is atraumatic, normocephalic. EOM's intact. Facies symmetric. No perioral cyanosis. NECK: No JVD. JVP is at the level of the clavicle sitting upright. Carotid upstrokes are + 2 bilaterally. No bruits are noted. CHEST/LUNGS: Clear to auscultation throughout all lung jara. No obvious wheezes, rales, or crackles. CVS: S1 and S2 are regular without murmurs, gallops, or rubs. PMI is nondisplaced. No lifts, heaves, or thrills. No abdominal aortic or renal bruits. ABDOMINAL EXAM: Bowel sounds are present. No masses, organomegaly, or tenderness. EXTREMITIES: No clubbing or cyanosis. No edema. Intact posterior tibial and radial pulses bilaterally. NEUROLOGIC EXAM: Patient is awake, alert, and oriented. Pleasant and cooperative. Answers questions appropriately. Speech is clear. [employer] Partner Development Manager shows NSR. EKG 07/17/2020: -- NSR at 78 bpm. -- No acute changes. Results & Data Results & Data ([facility]) Vital Signs (Past 12 Hours) Vital Signs Temp Pulse Pulse Resp BP BP Pulse Ox 07/17/20 15:12 87 L 07/17/20 14:30 86 18 163/90 H 92 07/17/20 13:26 96 07/17/20 13:21 96 07/17/20 12:32 36.7 C 85 18 141/86 H 95 Laboratory Results Laboratory Results - last 24 hr 07/17/20 07/17/20 07/17/20 13:21 13:21 13:21 WBC 4.11 L RBC 4.59 L Hgb 14.6 Hct 43.6 MCV 95.0 MCH 31.8 MCHC 33.5 RDW Std Deviation 47.4 H RDW Coeff of Gregory 13.6 Plt Count 141 MPV 9.9 Immature Gran % (Auto) 0.2 Neut % (Auto) 69.2 Lymph % (Auto) 19.7 Brooke % (Auto) 10.9 Eos % (Auto) 0.0 Baso % (Auto) 0.0 Neut # (Auto) 2.84 Lymph # (Auto) 0.81 L Brooke # (Auto) 0.45 Eos # (Auto) 0.00 Baso # (Auto) 0.00 Immature Gran # (Auto) 0.01 PT INR APTT PTT Ratio D-Dimer Sodium 140 Potassium 4.1 Chloride 105 Carbon Dioxide 31 Anion Gap 4.0 BUN 20 H Creatinine 0.71 Est Cr Clr Drug Dosing 77.6 Est GFR ( Amer) 101.3 Est GFR (Non-Af Amer) 87.4 BUN/Creatinine Ratio 28.7 H Glucose 86 Lactate Calcium 8.8 Magnesium 1.9 Total Bilirubin 0.6 AST 35 ALT 51 Alkaline Phosphatase 97 Troponin I < 0.015 Total Protein 6.9 Albumin 3.3 L Globulin 3.6 Albumin/Globulin Ratio 0.9 Lipase 140 Procalcitonin < 0.05 COVID-19 Eval Order SARS-CoV-2, RNA, NAAT 07/17/20 07/17/20 07/17/20 13:21 13:21 13:24 WBC RBC Hgb Hct MCV MCH MCHC RDW Std Deviation RDW Coeff of Gregory Plt Count MPV Immature Gran % (Auto) Neut % (Auto) Lymph % (Auto) Brooke % (Auto) Eos % (Auto) Baso % (Auto) Neut # (Auto) Lymph # (Auto) Brooke # (Auto) Eos # (Auto) Baso # (Auto) Immature Gran # (Auto) PT 11.6 INR 1.1 APTT 32.8 H PTT Ratio 1.2 D-Dimer 700 H* Sodium Potassium Chloride Carbon Dioxide Anion Gap BUN Creatinine Est Cr Clr Drug Dosing Est GFR ( Amer) Est GFR (Non-Af Amer) BUN/Creatinine Ratio Glucose Lactate 1.1 Calcium Magnesium Total Bilirubin AST ALT Alkaline Phosphatase Troponin I Total Protein Albumin Globulin Albumin/Globulin Ratio Lipase Procalcitonin COVID-19 Eval [facility] SARS-CoV-2, RNA, NAAT 07/17/20 13:24 WBC RBC Hgb Hct MCV MCH MCHC RDW Std Deviation RDW Coeff of Gregory Plt Count MPV Immature Gran % (Auto) Neut % (Auto) Lymph % (Auto) Brooke % (Auto) Eos % (Auto) Baso % (Auto) Neut # (Auto) Lymph # (Auto) Brooke # (Auto) Eos # (Auto) Baso # (Auto) Immature Gran # (Auto) PT INR APTT PTT Ratio D-Dimer Sodium Potassium Chloride Carbon Dioxide Anion Gap BUN Creatinine Est Cr Clr Drug Dosing Est GFR ( Amer) Est GFR (Non-Af Amer) BUN/Creatinine Ratio Glucose Lactate Calcium Magnesium Total Bilirubin AST ALT Alkaline Phosphatase Troponin I Total Protein Albumin Globulin Albumin/Globulin Ratio Lipase Procalcitonin COVID-19 Eval Order SARS-CoV-2, RNA, NAAT POSITIVE A* Code Status & VTE Plan Code Status Full code VTE Prophylaxis Plan VTE Prophylaxis will be ordered: Yes Critical Care Time Critical Care Time: No Prolonged Care Time Prolonged Care Time: No Critical Care Time Critical Care Time: No Supervising Physician Co-Signing Physician Notes Attending addendum: I have physically seen this patient, have supervised the JAIME's activities, and agree with the H&P unless as otherwise noted. Assessment and Plan: Pneumonia due to COVID-19 virus with hypoxia- Initial oxygen saturation 87% on room air, with improvement on 2 L oxygen to 92%. Decadron 6 mg IV every morning Zinc sulfate can 20 mg p.o. every morning Ventolin HFA 2 puffs 4 times daily, and every 2 hours as needed not a candidate for remdesivir or convalescent plasma Follow sputum and blood culture and sensitivity Elevated D-dimer, with negative PE on CT scan, will place on Lovenox prophylactically Remainder of orders and notations as noted PG Care Time/CCT Total # of Minutes Spent Total Time Spent: 55 Total Time Spent with Patient: Total time spent is greater than 50% in coordination of care (as documented) at patient's floor/unit and/or counseling patient:35 Prolonged Care Time Prolonged Care Time: No Critical Care Time: No Critical Care Time Critical Care Time: No Coding Level of Care Code 20519 Initial Inpt Care Lvl 3 Diagnoses COVID-19 virus RNA detected U07.1 Hypoxia R09.02 Infiltrate of lung present on computed tomography R91.8 Hypertension I10 Hypercholesterolemia E78.00
[2020-07-17 20:14] LABS: Hematocrit (blood only) 44.6 % (42-52); Hemoglobin 14.9 g/dL (14.0-18.0); Lymphocytes # (auto) 0.27 K/uL (1.2-3.4); Mean Corpuscular Hemoglobin 31.6 pg (25-34); Mean Corpuscular Hgb Conc 33.4 g/dL (32-36); Mean Corpuscular Volume 94.5 fL (80-100); Monocytes # (auto) 0.09 K/uL (0.11-0.59); Monocytes % (auto) 3.3 %; Neutrophils # (auto) 2.34 K/uL (1.4-6.5); Neutrophils % (auto) 86.7 %; Platelet Count 142 K/uL (130-400); RDW Coefficient of Variation 13.5 % (11.5-14.5); RDW Standard Deviation 46.9 fL (36.4-46.3); Red Blood Count 4.72 M/uL (4.7-6.1)
[2020-07-17 20:30] LABS: BUN Creatinine Ratio 26.6 (10-20); Calcium 8.5 mg/dl (8.5-10.1); Creatinine Clr Calc Pharmacy 75.9 ml/min; Est GFR (Non-African American) 85.4; Potassium 3.9 mmol/L (3.5-5.1)
[2020-07-17] MEDS: DOCUSATE SODIUM 100 MG CAP PO SCH (20:55)
[2020-07-17] MEDS: DESONIDE CR 15 GM TUBE EXT SCH (20:55)
[2020-07-17] MEDS: ENOXAPARIN INJ 40 MG/0.4 ML SYR SQ SCH (20:55)
[2020-07-17] MEDS: ATORVASTATIN 40 MG TAB PO SCH (20:56)
[2020-07-17] MEDS: NYSTATIN/TRIAMCIN OINT 15 GM TUBE EXT SCH (20:56)
[2020-07-17] MEDS ORDERED: DOCUSATE SODIUM 100 MG CAP PO SCH (21:00)
[2020-07-17] MEDS ORDERED: ATORVASTATIN 40 MG TAB PO SCH (21:00)
--- NOTE | 2020-07-18 05:57 | Electrocardiogram Report ---
Test Reason : Blood Pressure : / mmHG Vent. Rate : 078 BPM Atrial Rate : 078 BPM P-R Int : 168 ms QRS Dur : 084 ms QT Int : 378 ms P-R-T Axes : 038 -16 039 degrees QTc Int : 430 ms Normal sinus rhythm Septal infarct (cited on or before 02-JUL-2012) Abnormal ECG When compared with ECG of 02-JUL-2012 09:06, Premature ventricular complexes are no longer Present Confirmed by Julian Jackson ([id number]) on 07/18/2020 5:57:01 AM Referred By: Confirmed By:Julian Jackson
[2020-07-18] MEDS: LOSARTAN POTASSIUM 50 MG TAB PO SCH (08:10)
[2020-07-18] MEDS: dexAMETHasone 4 MG TAB PO SCH (08:10)
[2020-07-18] MEDS: DESONIDE CR 15 GM TUBE EXT SCH ×2 (08:12→20:49)
[2020-07-18] MEDS: DOCUSATE SODIUM 100 MG CAP PO SCH ×2 (08:12→20:50)
[2020-07-18] MEDS: ASPIRIN 81 MG ECTAB PO SCH (08:12)
[2020-07-18] MEDS: NYSTATIN/TRIAMCIN OINT 15 GM TUBE EXT SCH ×2 (08:13→20:48)
[2020-07-18 08:17] LABS: Hemoglobin 14.9 g/dL (14.0-18.0); Lymphocytes # (auto) 0.51 K/uL (1.2-3.4); Lymphocytes % (auto) 21.9 %; Mean Corpuscular Hemoglobin 31.4 pg (25-34); Mean Corpuscular Hgb Conc 33.1 g/dL (32-36); Mean Corpuscular Volume 94.7 fL (80-100); Mean Platelet Volume 10.3 fL (7.4-10.4); Monocytes # (auto) 0.47 K/uL (0.11-0.59); Monocytes % (auto) 20.2 %; Neutrophils # (auto) 1.35 K/uL (1.4-6.5); Neutrophils % (auto) 57.9 %; Platelet Count 167 K/uL (130-400); RDW Coefficient of Variation 13.6 % (11.5-14.5); RDW Standard Deviation 47.4 fL (36.4-46.3); Red Blood Count 4.75 M/uL (4.7-6.1); White Blood Count 2.33 K/uL (4.8-10.8)
[2020-07-18 08:44] LABS: Calcium 9.1 mg/dl (8.5-10.1); Est GFR (African American) 105.7; Est GFR (Non-African American) 91.2; Potassium 3.9 mmol/L (3.5-5.1)
[2020-07-18] MEDS ORDERED: LOSARTAN POTASSIUM 50 MG TAB PO SCH (09:00)
[2020-07-18] MEDS: CEROVITE ADV FORMULA TAB PO SCH (10:27)
[2020-07-18 10:38] LABS: Appearance Urine Clear (Clear); Bacteria Urine Automated Negative (Negative); Bilirubin Urine Negative (Negative); Blood Urine Negative (Negative); Color Urine Dark Yellow; Glucose Urine UA 1+ (Negative); Ketones Urine Trace (Negative); Leukocyte Esterase Urine Negative (Negative); Nitrite Urine Negative (Negative); Protein Urine 1+ (Negative); RBC Urine Automated 0-4 /hpf (0-4); Specific Gravity Urine 1.041 (1.000-1.030); Urobilinogen Urine Negative (Negative)
[2020-07-18] MEDS: ENOXAPARIN INJ 40 MG/0.4 ML SYR SQ SCH (20:49)
[2020-07-18] MEDS: ATORVASTATIN 40 MG TAB PO SCH (20:49)
--- NOTE | 2020-07-18 21:53 | Hospitalist Progress Note ---
Date of Service July 18, 2020 Assessment & Plan (1) COVID-19: Patient is clinically improving. Will continue dexamethasone. Now on room air, but will like to monitor for 24 hours to confirm patient does not decompensate. PATIENT IS ALSO MORE NEUTROPENIC TODAY. Prefer to see that WBC stabilizes before discharge. If labs improve and he remains on Room air. will discharge home in AM. (2) Hypoxia: improved. (3) Neutropenia: as stated above. (4) Hypertension: BP at goal continue home meds (5) Hypercholesterolemia: stable continue atorvastatin Admission and Anticipated Discharge Date Admission Date: July 17, 2020 Subjective Patient reports feeling well. Patient has no new complaints. he is breathing well on room air. Review of Systems Review of Systems: All systems reviewed & are unremarkable except as noted in HPI & below Physical Exam Physical Exam: GENERAL: Patient in no acute distress. HEENT: Head is atraumatic, normocephalic. EOM's intact. NECK: No JVD. JVP is at the level of the clavicle sitting upright. Carotid upstrokes are + 2 bilaterally. No bruits are noted. CHEST/LUNGS: Clear to auscultation throughout all lung jara. No obvious wheezes, rales, or crackles. CVS: S1 and S2 are regular without murmurs, gallops, or rubs. PMI is nondisplaced. No lifts, heaves, or thrills. No abdominal aortic or renal bruits. ABDOMINAL EXAM: Bowel sounds are present. No masses, organomegaly, or tendern ess. EXTREMITIES: No clubbing or cyanosis. No edema. Intact posterior tibial and radial pulses bilaterally. NEUROLOGIC EXAM: Patient is awake, alert, and oriented. Pleasant and cooperative. Answers questions appropriately. Speech is clear. Results & Data Results & Data ([facility]) Vital Signs (Past 12 Hours) Vital Signs Temp Pulse Resp BP BP Pulse Ox 07/18/20 19:20 36.7 C 63 21 113/81 96 07/18/20 15:51 36.6 C 64 20 143/82 H 91 07/18/20 11:41 36.4 C L 79 19 123/87 92 PG Care Time/CCT Total # of Minutes Spent Total Time Spent with Patient: Total time spent is greater than 50% in coordination of care (as documented) at patient's floor/unit and/or counseling patient: Coding Level of Care Code 90708 Subseq Hosp Care Lvl 3 Diagnoses COVID-19 U07.1 Hypoxia R09.02 Neutropenia D70.9 Hypertension I10 Hypercholesterolemia E78.00 Time Spent (min) 35
[2020-07-19 08:06] LABS: Eosinophils # (auto) 0.01 K/uL (0-0.5); Eosinophils % (auto) 0.1 %; Hematocrit (blood only) 43.8 % (42-52); Hemoglobin 14.6 g/dL (14.0-18.0); Immature Granulocytes # (auto) 0.03 K/uL (0.00-0.02); Immature Granulocytes % (auto) 0.4 %; Lymphocytes # (auto) 0.88 K/uL (1.2-3.4); Lymphocytes % (auto) 11.7 %; Mean Corpuscular Hemoglobin 31.6 pg (25-34); Mean Corpuscular Hgb Conc 33.3 g/dL (32-36); Mean Corpuscular Volume 94.8 fL (80-100); Mean Platelet Volume 10.3 fL (7.4-10.4); Monocytes # (auto) 0.85 K/uL (0.11-0.59); Monocytes % (auto) 11.3 %; Neutrophils # (auto) 5.78 K/uL (1.4-6.5); Neutrophils % (auto) 76.5 %; Platelet Count 195 K/uL (130-400); RDW Coefficient of Variation 13.8 % (11.5-14.5); RDW Standard Deviation 47.7 fL (36.4-46.3); Red Blood Count 4.62 M/uL (4.7-6.1); White Blood Count 7.55 K/uL (4.8-10.8)
[2020-07-19 08:37] LABS: BUN Creatinine Ratio 38.7 (10-20); Calcium 8.8 mg/dl (8.5-10.1); Creatinine Clr Calc Pharmacy 80.2 ml/min; Est GFR (African American) 101.3; Est GFR (Non-African American) 87.4; Potassium 3.8 mmol/L (3.5-5.1)
[2020-07-19] MEDS: ASPIRIN 81 MG ECTAB PO SCH (08:40)
[2020-07-19] MEDS: LOSARTAN POTASSIUM 50 MG TAB PO SCH (08:40)
[2020-07-19] MEDS: CEROVITE ADV FORMULA TAB PO SCH (08:40)
[2020-07-19] MEDS: DOCUSATE SODIUM 100 MG CAP PO SCH (08:40)
[2020-07-19] MEDS: dexAMETHasone 4 MG TAB PO SCH (08:40)
[2020-07-19] MEDS: DESONIDE CR 15 GM TUBE EXT SCH (08:44)
[2020-07-19] MEDS: NYSTATIN/TRIAMCIN OINT 15 GM TUBE EXT SCH (08:44)
--- NOTE | 2020-07-19 11:00 | Discharge Summary ---
Date of Service July 19, 2020 Admission HPI Per Admitting Provider Mr. Fink is an 80 year old male with a history of Hypertension, Hypercholesterolemia, Aortic Atherosclerosis, Impaired Fasting Glucose, Tubular Adenoma of the Colon, Osteoarthritis, and Prostate Cancer s/p External Beam Radiation, Brachytherapy, and Neoadjuvant Hormone Therapy who presented to [facility] 07/17/2020 complaining of significant fatigue which began about 10 days ago. Patient states that on 07/07/2020 he was in his usual state of health but then developed upper abdominal discomfort that radiated to his lower chest - he describes it as "indigestion" with mild nausea which lasted about 5 minutes in total. He denies any associated symptoms -- specifically denying any associated vomiting, dyspnea, or diaphoresis. He then began to feel fatigued afterwards, and that fatigue has worsened and persisted. This fatigue is why his made him come in to be evaluated (she is a nurse). Patient denies any fevers, chills, cough, or sputum production. He denies any SOB, DANIELS, orthopnea, PND, or hemoptysis. He denies any headache, stiff neck, abdominal pain, or any urinary symptoms. His evaluation thus far show a mild lymphocytopenia, elevated D-dimer (no evidence of PE on CT Scan) -- however he has an infiltrate consistent with viral pneumonia. He is also SARS Co-V 2 positive. He was also transiently hypoxic with SpO2 of 87%. Current O2 saturations are > 92% on 2L O2 via nasal cannula. Principal Diagnosis COVID-19 Discharge Exam GENERAL: Patient in no acute distress. HEENT: Head is atraumatic, normocephalic. EOM's intact. NECK: No JVD. JVP is at the level of the clavicle sitting upright. Carotid upstrokes are + 2 bilaterally. No bruits are noted. CHEST/LUNGS: Clear to auscultation throughout all lung jara. No obvious wheezes, rales, or crackles. CVS: S1 and S2 are regular without murmurs, gallops, or rubs. PMI is nondisplaced. No lifts, heaves, or thrills. No abdominal aortic or renal bruits. ABDOMINAL EXAM: Bowel sounds are present. No masses, organomegaly, or tenderness. EXTREMITIES: No clubbing or cyanosis. No edema. Intact posterior tibial and radial pulses bilaterally. NEUROLOGIC EXAM: Patient is awake, alert, and oriented. Pleasant and cooperative. Answers questions appropriately. Speech is clear. Discharge Data Allergies Allergy/AdvReac Type Severity Reaction Status Date / Time Penicillins Allergy Unknown HIVES Verified 07/17/20 14:32 SHASHI Inhibitors Allergy cough Verified 07/17/20 14:32 iodine AdvReac Mild vomiting Verified 07/17/20 14:32 shellfish derived AdvReac Mild VOMIT Verified 07/17/20 14:32 Consultations 07/17/20 15:19 ED Decision to Admit Stat Ordered Studies 07/17/20 12:53 CT abd pelvis IV con only Stat CT head/brain wo con Stat 07/17/20 13:56 CT angio chest PE protocol Stat Hospital Course (1) COVID-19: Patient was admitted with COVID-19. Patient is clinically improving. He had received 3 doses of dexamethasone. Initially he required nasal cannula but over 36 hours, he has roque on Room air. Patient also ambulated the halls with pulse ox and he maintained in the 90s. On admission patient was nuetropenic, however, this improved on day of discharge. ok to go home, will recommend to wear a mask at home as his spouse has not been diagnosed with COVID-19 His should limit contact with him over next 12 days annd also wear a mask. She has a pending COVID test. will discharge patient to complete 10 day course of dexamethasone. (2) Hypoxia: improved. (3) Neutropenia: as stated above. (4) Hypertension: BP at goal continue home meds (5) Hypercholesterolemia: stable continue atorvastatin Total Time Total Time Spent Total Time Spent (In Minutes): 32 Total Time Includes: Examination of the Patient, Discharge Planning and Medication Reconciliation Discharge Plan Discharge Items Patient Disposition: Home - Self-Care Reason For Visit: SARS, CO-V 2 Discharge Diagnosis: SARS, COVID-19 Activity: Resume your previous activity Non-emergency contact: Primary Care Provider Call non-emergency contact if: you have any medication questions Follow-up/Referrals: Letitia Jordan MD [Primary Care Provider] - Diet: Regular Addtl Attending Provider Instructions: Quarantine for 14 days. Coronavirus disease 2019 (COVID-19) is a virus that causes a respiratory illness. It is caused by a coronavirus called 2019 novel coronavirus (2019- nCoV). There are many types of coronavirus. Coronaviruses are a very common cause of bronchitis. They may sometimes cause lung infection(pneumonia). Symptoms can range from mild to severe respiratory illness. These viruses are also foundin some animals. COVID-19 was first found in people in [facility], in late 2019. In 2020, several cases of COVID-19 have been confirmed in the [place] Public health officials are working to find the source. How the virus spreads is not yet fully known. It may be spread through droplets of fluid that a person coughs or sneezes into the air. It may be spread if you touch a surface with virus on it, such as a handle or object, and then touch your mouth. What are the symptoms of COVID-19? Some people have no symptoms or mild symptoms. Symptoms may appear 2 to 14 days after contact with the virus. Symptoms can include: Fever Coughing Trouble breathing What are possible complications from COVID-19? In many cases, this virus can cause infection (pneumonia) in both lungs. In some cases, this can cause . How is COVID-19 treated? There is currently no medicine to treat the virus. Treatment is done to help your body while it fights the virus. This is known as supportive care. Supportive care may include: Pain medicine. These include acetaminophen. They are used to help ease pain and reduce fever. Bed rest. This helps your body fight the illness. Dexamethasone: helps decrease inflammation. For severe illness, you may need to stay in the hospital. Care during severe illness may include: IV (intravenous) fluids.These are given through a vein to help keep your body hydrated. Oxygen. Supplemental oxygen or ventilation with a breathing machine (ventilator) may be given. This is done to keep enough oxygen in your body. Are you at risk for COVID-19? If youve been to a place where people have been sick with this virus, you are at risk for infection. You are at risk if you: Recently traveled to an affected area Had contact with a sick person who recently traveled to this area Had contact with a person who was diagnosed with COVID-19 If you have been diagnosed with COVID-19 Follow all instructions from your healthcare provider. Dont leave your home, except to get medical care. Call your healthcare providers office before going. They can prepare and give you instructions. This will help prevent the virus from spreading. Dont go to work, school, or public areas. Dont use public transport or taxis. Stay away from other people in your home. Have them wear face masks around you. Dont share household items or food. Wear a face mask if you can. This includes at home or in a medical facility. Cover your face with a tissue when you cough or sneeze. Throw the tissue away. Wash your hands. Wash your hands often. Caregivers should: Follow all instructions from healthcare staff. Wear a face mask and protective clothing as advised. Wash hands often. Keep track of the sick persons symptoms. Clean surfaces, fabrics, and laundry thoroughly. Keep other people away from the sick person. [employer]. [address] [place] [address], [place] [address]. All rights reserved. This information is not intended as a substitute for professional medical care. Always follow your healthcare professional's instructions. This information has been adapted from [employer] Pending Studies at Discharge: No Stand-Alone Forms: My [facility], Smoking Cessation Medications and DC Order Prescriptions: New dexamethasone 4 mg Tablet 6 mg PO DAILY Qty: 7 RF: 0 Continued atorvastatin [Lipitor] 80 mg tablet 80 mg PO QPM Qty: 90 RF: 3 losartan 50 mg tablet 50 mg PO DAILY Qty: 90 RF: 3 clindamycin phosphate 1 % solution 1 appln topical .APPLY SPARINGLY TO A Qty: 1 RF: 0 biotin 1 mg tablet 1 mg PO Q2D RF: 0 Centrum Men 8 mg iron- 200 mcg-600 mcg tablet 1 tab PO DAILY RF: 0 cetirizine [Zyrtec] 10 mg tablet 10 mg PO DAILY PRN (Reason: Allergy Symptoms) RF: 0 docusate sodium [Colace] 100 mg capsule 100 mg PO BID RF: 0 tramadol 50 mg tablet 50 mg PO Q6H PRN (Reason: pain) Qty: 30 RF: 0 nystatin-triamcinolone 100,000-0.1 unit/gram-% ointment 1 applic topical BID Qty: 15 RF: 2 desonide 0.05 % cream 1 applic topical BID Qty: 15 RF: 2 aspirin [Aspirin Low Dose] 81 mg Tablet,Delayed Release (Dr/Ec) 81 mg PO DAILY RF: 0 Discharge Orders: Discharge Order (Routine); Ordered 07/19/20 Ordered By: Haresh Lange Admission Data Admit Date/Time: 07/17/20 16:13 Attending Provider: Haresh Lange Admit Provider: Cm Aguilar Primary Care Provider: Letitia Jordan Other Providers: Cm Aguilar Other Interventions: Discharge Summary Assessment (RN) Last Done: 07/19/20 10:52 Coding Level of Care Code D/C Day Management >30 mins Diagnoses COVID-19 U07.1 Hypoxia R09.02 Neutropenia D70.9 Hypertension I10 Hypercholesterolemia E78.00 Time Spent (min) 32
--- NOTE | 2020-07-21 09:38 | Coding Query ---
CODING QUERY To promote full compliance with coding requirements relating to patient care, provider participation is requested in all cases of wire drawer uncertainty. Please assist us with the question(s) below: Coding Question(s): Viral Pneumonia is documented on the ER and H&P with no mention on the 07/18/20 Progress Note and Discharge Summary. It is not clear if this is still a diagnosis or if it was ruled-out. Please specify below, in your clinical opinion, regarding Viral Pneumonia. ( x ) Viral Pneumonia, due to Covid-19 ( ) Viral Pneumonia, NOT due to Covid-19 ( ) Viral Pneumonia is Ruled-Out Physician's Response(s): Thank you Tere Harden Principal Diagnosis: "that condition established after study, to be chiefly responsible for occasioning the admission of the patient to the hospital for care." Co-Existing Principal Diagnosis: "when two or more diagnoses equally meet the criteria for principal diagnosis as determined by the circumstances of admission, diagnostic work up, and/or therapy provided, and the Alphabetic Index, Tabular List, or another coding guideline does not provide sequencing direction, any one of the diagnoses may be sequenced first." "When the physician has documented what appears to be a current diagnosis in the body of the record, but has not included the diagnosis in the final diagnostic statement, the physician should be asked whether the diagnosis should be added." (Source Coding Clinic 2 QTR90. p3-4) EDILMA
== END 2020-07-19 11:44 | disposition home or self-care (01) | DRG 177 ==
LOC: ED 12:29 → 2S 16:13 → SUATTDRO 16:13 → 2S 18:15

== ENCOUNTER 2021-01-13 16:48 | Inpatient (IN) ==
[2021-01-13 17:18] LABS: Basophils # (auto) 0.03 K/uL (0-0.2); Basophils % (auto) 0.2 %; Eosinophils # (auto) 0.11 K/uL (0-0.5); Eosinophils % (auto) 0.9 %; Hematocrit (blood only) 43.1 % (42-52); Hemoglobin 14.5 g/dL (14.0-18.0); Immature Granulocytes # (auto) 0.02 K/uL (0.00-0.02); Immature Granulocytes % (auto) 0.2 %; Lymphocytes # (auto) 1.77 K/uL (1.2-3.4); Lymphocytes % (auto) 14.3 %; Mean Corpuscular Hemoglobin 31.9 pg (25-34); Mean Corpuscular Hgb Conc 33.6 g/dL (32-36); Mean Corpuscular Volume 94.7 fL (80-100); Mean Platelet Volume 9.8 fL (7.4-10.4); Monocytes # (auto) 0.94 K/uL (0.11-0.59); Monocytes % (auto) 7.6 %; Neutrophils # (auto) 9.49 K/uL (1.4-6.5); Neutrophils % (auto) 76.8 %; Platelet Count 208 K/uL (130-400); RDW Coefficient of Variation 14.3 % (11.5-14.5); RDW Standard Deviation 49.2 fL (36.4-46.3); Red Blood Count 4.55 M/uL (4.7-6.1); White Blood Count 12.36 K/uL (4.8-10.8)
--- NOTE | 2021-01-13 17:18 | XRay Report ---
XR chest 1V portable CLINICAL HISTORY: Chest Pain COMPARISON STUDY: Chest CT October 29, 2020 FINDINGS: Lung volumes are normal. There is no pneumothorax or pleural effusion. Mild cardiomegaly is unchanged. There is pulmonary vascular congestion. Old left-sided rib deformities are noted. IMPRESSION: No acute cardiopulmonary findings. No significant change in appearance of the chest. ACT 112: Negative or not required by law. Electronically signed by: Alexander Jordan M.D. 01/13/2021 5:16 PM
[2021-01-13 17:31] LABS: Partial Thromboplastin Ratio 0.9; Partial Thromboplastin Time 24.5 Seconds (21.0-31.0); Prothrombin Time 10.5 Seconds (9.0-12.0)
[2021-01-13 17:36] LABS: Albumin Level 4.1 gm/dl (3.4-5.0); BUN Creatinine Ratio 42.4 (10-20); Calcium 9.2 mg/dl (8.5-10.1); Creatinine Clr Calc Pharmacy 76.5 ml/min; Est GFR (African American) 100.7 ml/min; Est GFR (Non-African American) 86.9 ml/min; Potassium 3.9 mmol/L (3.5-5.1)
[2021-01-13 17:48] LABS: Albumin Globulin Ratio 1.2 (0.9-2); Bilirubin,Total 0.6 mg/dl (0.2-1); Globulin 3.3 gm/dl (2.5-4.0); Total Protein 7.4 gm/dl (6.4-8.2); Troponin I 0.154 ng/ml (0-0.045)
[2021-01-13] MEDS ORDERED: NITROGLYCERIN SL 0.4 MG/TAB TAB SL STA (18:14)
[2021-01-13] MEDS ORDERED: ASPIRIN 81 MG CHEW PO STA (18:14)
[2021-01-13] MEDS ORDERED: NITROGLYCERIN 2% OINTMENT 30GM TUBE EXT STA (18:15)
[2021-01-13] MEDS ORDERED: ENOXAPARIN 1 MG/KG SQ STA (18:15)
--- NOTE | 2021-01-13 18:27 | Emergency Department Note ---
History of Present Illness General Chief complaint: Chest Pain Stated complaint: CHEST PAIN LASTNIGHT Time Seen by Provider: 01/13/21 18:10 Source: patient Mode of arrival: ambulatory Limitations: no limitations History of Present Illness Provider complaint: Chest pain This is an 80-year-old male with a history of hypertension and high cholesterol who presents to the ED with a chief complaint of chest pain. The patient reports exertional chest pains over the past 6 months or so since August. He states that he did not see anybody for this. Last night he developed some retrosternal chest pain that felt sharp in nature and lasted for about 10 to 12 minutes with at rest. He states he was lying in bed at the time. He did not do anything exertional yesterday. He had no associated symptoms such as shortness of breath, nausea, vomiting or diaphoresis. He told his about his symptoms last night and she wanted him to come and get checked as she is a nurse. The patient has not had any symptoms today but has not exerted himself at all. Denies any recent illness, fevers, back pains or abdominal pains. Home Medications Medication Instructions Recorded Confirmed Type biotin 1 mg tablet 1 mg PO Q2D tab 03/16/19 09/30/20 History cetirizine 10 mg tablet 10 mg PO DAILY PRN tab 03/16/19 09/30/20 History docusate sodium 100 mg capsule 100 mg PO BID 03/16/19 09/30/20 History multivit,Ca,min-iron 8 mg-folic 1 tab PO DAILY tab 03/16/19 09/30/20 History acid 200 mcg-lycopene 600 mcg tablet clindamycin phosphate 1 % topical 1 appln TOPICAL .APPLY SPARINGLY 06/05/19 09/30/20 History solution TO A #1 ml desonide 0.05 % topical cream 1 applic TOPICAL BID #15 g 03/25/20 09/30/20 Rx nystatin-triamcinolone 100,000 1 applic TOPICAL BID #15 g 03/25/20 09/30/20 Rx unit/gram-0.1 % topical ointment aspirin [Aspirin Low Dose] 81 mg PO DAILY 07/17/20 09/30/20 History atorvastatin 80 mg tablet 80 mg PO DAILY #90 tab 09/16/20 09/30/20 Rx losartan 50 mg tablet 50 mg PO DAILY #90 tab 11/27/20 Rx Allergies Allergy/AdvReac Type Severity Reaction Status Date / Time Penicillins Allergy Unknown HIVES Verified 09/30/20 08:59 SHASHI Inhibitors Allergy cough Verified 09/30/20 08:59 iodine AdvReac Mild vomiting Verified 09/30/20 08:59 shellfish derived AdvReac Mild VOMIT Verified 09/30/20 08:59 Past Med/Surg History Medical History Anaphylaxis due to shellfish Aortic atherosclerosis seen on AAA screen History of basal cell carcinoma Hypercholesterolemia Hypertension Impaired fasting glucose Prostate cancer treated with neoadjuvant hormone therapy, brachytherapy, external beam radiation Right knee DJD Seborrheic dermatitis Tubular adenoma of colon Vitamin D deficiency Surgical History History of appendectomy History of left knee replacement History of tonsillectomy History of vasectomy Social History Smoking Status: Former smoker Age Started Using Tobacco: 18; Age Quit Using Tobacco: 68; Years Smoked: 48; Number of Years Since Quit: 11; Hx Alcohol Use: Yes Alcohol type: wine Hx Substance Use: No Preferred Language: Irish Communication Ability: Effective Hearing Ability: Hard of Hearing [employer] Required: No Beliefs That Will Affect Care: None marital status: Current Living Situation: Spouse Current Living Situation Comment: Feels Safe at Home: Yes Dental Care, Regularly: Yes Physical Activity Frequency: 3-4 Times per Week Assistive Devices: None Review of Systems A total of 10 systems reviewed and were otherwise negative Physical Exam Vital Signs Vital Signs - 24 hr 01/13/21 16:52 01/13/21 16:58 Temperature 36.9 C Temperature Source Temporal Artery Scan Pulse Rate 82 Pulse Rhythm Regular Pulse Strength Normal Respiratory Rate 20 Respiratory Effort / Characteristics Non-Labored Spontaneous Respiratory Depth Normal Respiratory Pattern Regular Blood Pressure 214/166 H Blood Pressure Mean 182 Blood Pressure Position Sitting Pulse Oximetry 95 Oxygen Delivery Method Room Air Room Air Sepsis Recent Fever Within 48 Hours No Sepsis New/Unexplained Change in Mental Status N/A Sepsis Action Taken by Nursing No Action Required CONSTITUTIONAL/VITAL SIGNS: Reviewed / noted above. GENERAL: Non-toxic in appearance. INTEGUMENTARY: Warm, dry, and [place]. HEAD: Normocephalic. EYES: without scleral icterus or trauma. ENT/OROPHARYNX: clear and moist. LYMPHADENOPATHY/NECK: Is supple without lymphadenopathy or meningismus. RESPIRATORY: Lungs clear and equal. CARDIOVASCULAR: Regular rate and rhythm. GI/ABDOMEN: Soft and nontender. No organomegaly or pulsatile mass. No rebound or guarding. Normal bowel sounds. EXTREMITIES: Warm and well perfused. BACK: No CVA tenderness. NEUROLOGICAL: Intact without focal deficits. PSYCHIATRIC: normal affect. MUSCULOSKELETAL: Normally developed with good muscle tone. TRIAGE NURSING DOCUMENTATION REVIEWED. Medical Decision Making Differential Diagnosis The differential that was considered includes acute myocardial infarction, acute coronary syndrome, myocarditis, pericarditis, pericardial effusions /tamponade, esophageal perforation, thoracic aortic dissection, pulmonary embolism, pneumon ia, pneumothorax, pancreatitis, shingles, acute cholecystitis, perforated abdominal viscus. Medical Records Attestation: I reviewed the patient's medical records. Home Medications Current Medication List: was personally reviewed by me Laboratory Data Attestation: I reviewed the patient's lab results. Result diagrams: 01/13/21 17:10 01/13/21 17:10 Lab Results 01/13/21 01/13/21 01/13/21 Range/Units 17:10 17:10 17:10 WBC 12.36 H (4.8-10.8) K/uL RBC 4.55 L (4.7-6.1) M/uL Hgb 14.5 (14.0-18.0) g/dL Hct 43.1 (42-52) % MCV 94.7 (80-100) fL MCH 31.9 (25-34) pg MCHC 33.6 (32-36) g/dL RDW Std Deviation 49.2 H (36.4-46.3) fL RDW Coeff of Gregory 14.3 (11.5-14.5) % Plt Count 208 (130-400) K/uL MPV 9.8 (7.4-10.4) fL Immature Gran % (Auto) 0.2 % Neut % (Auto) 76.8 % Lymph % (Auto) 14.3 % Wilson % (Auto) 7.6 % Eos % (Auto) 0.9 % Baso % (Auto) 0.2 % Neut # (Auto) 9.49 H (1.4-6.5) K/uL Lymph # (Auto) 1.77 (1.2-3.4) K/uL Wilson # (Auto) 0.94 H (0.11-0.59) K/uL Eos # (Auto) 0.11 (0-0.5) K/uL Baso # (Auto) 0.03 (0-0.2) K/uL Immature Gran # (Auto) 0.02 (0.00-0.02) K/uL PT 10.5 (9.0-12.0) Seconds INR 1.0 (0.9-1.1) APTT 24.5 (21.0-31.0) Seconds PTT Ratio 0.9 Sodium 143 (136-145) mmol/L Potassium 3.9 (3.5-5.1) mmol/L Chloride 111 H (98-107) mmol/L Carbon Dioxide 26 (21-32) mmol/L Anion Gap 6.0 (3-11) BUN 31 H (7-18) mg/dl Creatinine 0.72 (0.6-1.4) mg/dl Est Cr Clr Drug Dosing 76.5 ml/min Est GFR ( Amer) 100.7 ml/min Est GFR (Non-Af Amer) 86.9 ml/min BUN/Creatinine Ratio 42.4 H (10-20) Glucose 93 (70-99) mg/dl Calcium 9.2 (8.5-10.1) mg/dl Total Bilirubin 0.6 (0.2-1) mg/dl AST 23 (15-37) U/L ALT 52 (12-78) U/L Alkaline Phosphatase 83 (45-117) U/L Troponin I 0.154 H* (0-0.045) ng/ml Total Protein 7.4 (6.4-8.2) gm/dl Albumin 4.1 (3.4-5.0) gm/dl Globulin 3.3 (2.5-4.0) gm/dl Albumin/Globulin Ratio 1.2 (0.9-2) Imaging Data Radiologist's Impression: Chest X-Ray 01/13/21 16:56 XR chest 1V portable CLINICAL HISTORY: Chest Pain COMPARISON STUDY: Chest CT October 29, 2020 FINDINGS: Lung volumes are normal. There is no pneumothorax or pleural effusion. Mild cardiomegaly is unchanged. There is pulmonary vascular congestion. Old left-sided rib deformities are noted. IMPRESSION: No acute cardiopulmonary findings. No significant change in appearance of the chest. ACT 112: Negative or not required by law. Electronically signed by: Alexander Jordan M.D. 01/13/2021 5:16 PM ECG Data Attestation: I personally reviewed and interpreted this ECG as follows: Indication: + chest pain Rate (beats per minute): 70 Rhythm: + normal sinus ECG Intervals/blocks: + Normal QT-c ECG ST segments: no ST elevation ECG Findings: + PVCs MDM Narrative Patient presents with some chest pain that sound like an anginal or unstable angina type picture. This is been ongoing since August but now he had chest pain at rest last night. The patient's exam was unremarkable. His vital signs show hypertension. Blood pressure is higher than typical for him, per the patient. His CBC was unremarkable. No significant anemia. Chest x-ray was negative for acute disease. Troponin was elevated 0. 154. EKG shows a sinus rhythm at a rate of 70 with occasional PVC. Compared to 07/17/2020, PVCs are new. No acute ST elevations. Based on the patient's symptoms of unstable angina especially with exertion, the patient's elevated troponin and history, he will require further inpatient evaluation and care. The hospitalist will be consulted. He is currently not having any chest discomfort or symptoms. The patient was treated with aspirin p.o., Lovenox subcu, nitro sublingual and an inch of Nitropaste. Impression & Plan Unstable angina, Hypertension, Non-ST elevation (NSTEMI) myocardial infarction Discharge Plan Visit Data Chief Complaint: Chest Pain Stated Complaint: CHEST PAIN LASTNIGHT ED Provider: Blanco Mon Discharge Problem: Unstable angina, Hypertension, Non-ST elevation (NSTEMI) myocardial infarction Patient Disposition: Being Evaluated by Hospitalist Forms Stand Alone Forms: My [facility], Virtual Emergency Department, Important Visit Information Prescriptions Prescriptions: No Action atorvastatin [Lipitor] 80 mg tablet 80 mg PO DAILY Qty: 90 RF: 3 losartan 50 mg tablet 50 mg PO DAILY Qty: 90 RF: 3 clindamycin phosphate 1 % solution 1 appln topical .APPLY SPARINGLY TO A Qty: 1 RF: 0 biotin 1 mg tablet 1 mg PO Q2D RF: 0 Centrum Men 8 mg iron- 200 mcg-600 mcg tablet 1 tab PO DAILY RF: 0 cetirizine [Zyrtec] 10 mg tablet 10 mg PO DAILY PRN (Reason: Allergy Symptoms) RF: 0 docusate sodium [Colace] 100 mg capsule 100 mg PO BID RF: 0 nystatin-triamcinolone 100,000-0.1 unit/gram-% ointment 1 applic topical BID Qty: 15 RF: 2 desonide 0.05 % cream 1 applic topical BID Qty: 15 RF: 2 aspirin [Aspirin Low Dose] 81 mg Tablet,Delayed Release (Dr/Ec) 81 mg PO DAILY RF: 0 Referrals Referrals: Letitia Jordan MD [Primary Care Provider] -
[2021-01-13] MEDS ORDERED: ENOXAPARIN 80 MG/0.8 ML SYR SQ STA (19:00)
--- NOTE | 2021-01-13 20:45 | History & Physical Report ---
Date of Service January 13, 2021 Assessment & Plan (1) Non-ST elevation (NSTEMI) myocardial infarction: Non-STEMI/hypertension- The patient will be admitted to telemetry for serial cardiac enzymes, serial EKG's, cardiac rhythm monitoring and a 2-D echocardiogram with Dopplers. Continue aspirin 81 mg daily and losartan 50 mg p.o. daily Nitropaste 1 inch to anterior chest wall every 6 hours Consult cardiology Present on Admission?: Yes (2) Hypertension: See above Present on Admission?: Yes (3) Hypercholesterolemia: Continue atorvastatin 80 mg daily Check a fasting lipid panel Present on Admission?: Yes (4) Impaired fasting glucose: Glucose 93 upon admission, on no medications Check a hemoglobin A1c Present on Admission?: Yes History of Present Illness Chief Complaint: The patient presents to the emergency department with complaint of substernal chest pain without radiation that began and resolved last evening while at rest Primary Care Provider: Letitia Jordan MD The patient is an 80-year-old male with a history of hypertension, hypercholesterolemia, impaired fasting glucose, prostate cancer, seborrheic dermatitis, tubular adenoma of colon and vitamin D deficiency. He reports having had exertional chest discomfort a few times since July 2020, however, he presented to the emergency department for this chest pain due to it occurring at rest. Work-up in the emergency department included a negative COVID-19 test. Troponin was elevated at 0.154. EKG showed normal sinus rhythm with PVCs, and no acute ST-T changes Allergies Allergy/AdvReac Type Severity Reaction Status Date / Time Penicillins Allergy Unknown HIVES Verified 01/13/21 18:55 SHASHI Inhibitors Allergy cough Verified 01/13/21 18:55 iodine AdvReac Mild vomiting Verified 01/13/21 18:55 shellfish derived AdvReac Mild VOMIT Verified 01/13/21 18:55 Home Medications Medication Instructions Recorded Confirmed Type cetirizine 10 mg tablet 10 mg PO DAILY PRN tab 03/16/19 01/13/21 History docusate sodium 100 mg capsule 100 mg PO BID 03/16/19 01/13/21 History multivit,Ca,min-iron 8 mg-folic 1 tab PO QAM tab 03/16/19 01/13/21 History acid 200 mcg-lycopene 600 mcg tablet clindamycin phosphate 1 % topical 1 appln TOPICAL .APPLY SPARINGLY 06/05/19 01/13/21 History solution TO A PRN #1 ml desonide 0.05 % topical cream 1 applic TOPICAL BID #15 g 03/25/20 01/13/21 Rx aspirin [Aspirin Low Dose] 81 mg PO HS 07/17/20 01/13/21 History atorvastatin [Lipitor] 80 mg PO HS 01/13/21 01/13/21 History losartan 50 mg PO HS 01/13/21 01/13/21 History nystatin-triamcinolone 1 applic TOPICAL BID PRN 01/13/21 01/13/21 History Past Med/Surg History Medical History Anaphylaxis due to shellfish Aortic atherosclerosis seen on AAA screen History of basal cell carcinoma Hypercholesterolemia Hypertension Impaired fasting glucose Prostate cancer treated with neoadjuvant hormone therapy, brachytherapy, external beam radiation Right knee DJD Seborrheic dermatitis Tubular adenoma of colon Vitamin D deficiency Surgical History History of appendectomy History of left knee replacement History of tonsillectomy History of vasectomy Social History Smoking Status: Former smoker Age Started Using Tobacco: 18; Age Quit Using Tobacco: 68; Years Smoked: 48; Number of Years Since Quit: 11; Hx Alcohol Use: Yes Alcohol type: wine Hx Substance Use: No Preferred Language: Urdu Communication Ability: Effective Hearing Ability: Hard of Hearing 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 Collar 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 Required: No Beliefs That Will Affect Care: None marital status: Current Living Situation: Spouse Current Living Situation Comment: Other Information That Helps Us Care for You: No Feels Safe at Home: Yes Safety Concerns: Feels Safe At This Time Dental Care, Regularly: Yes Physical Activity Frequency: 3-4 Times per Week Assistive Devices: Denture - Upper and Denture - Lower Review of Systems Review of Systems: The patient denies any further chest pain, palpitations, shortness of breath, dyspnea on exertion, cough, lower extremity swelling, sore throat, fevers, chills, sweats, weight change, fatigue, nausea, vomiting, diarrhea , constipation, abdominal pain, pelvic pain, blood in urine or stool, dysuria, urinary frequency or urgency, lightheadedness, dizziness, headache, memory loss, loss of consciousness, rash, abnormal bruising or bleeding, imbalance, focal or generalized weakness, numbness or tingling in arms or legs, generalized arthralgias or myalgias, back or neck pain, or night sweats. The review of systems is otherwise negative other than for that already noted above, and at least 10 systems have been reviewed. Physical Exam Physical Exam: The patient is awake, alert and oriented 3, well developed and well nourished, normocephalic and atraumatic, lying in bed and in no acute distress. HEENT--PERRL, EOMI, mucous membranes and oropharynx dry. Neck--supple. No JVD. No bruits. Thyroid normal, trachea midline, no adenopathy. Heart--normal S1 and S2. No murmurs, rubs or gallops. Lungs--clear bilaterally, no respiratory distress, no accessory muscle use. Abdomen--normal bowel sounds and soft. Nontender. Nondistended, no hernias or masses, no organomegaly. Extremities--no cyanosis or clubbing. No edema. There are good distal pulses b/l. Dermatologic--normal skin turgor, normal color, no abnormal lymph nodes, no rash. Neurologic--cranial nerves II through XII grossly intact. Rheumatologic--normal range of motion. Psychiatric--normal affect. Results & Data Results & Data ([facility]) Vital Signs (Past 12 Hours) Vital Signs Temp Pulse Resp BP Pulse Ox 01/13/21 20:30 61 20 137/91 95 01/13/21 20:00 58 L 16 154/88 H 01/13/21 19:42 66 15 158/87 H 01/13/21 19:01 70 22 171/107 H 01/13/21 19:00 76 16 01/13/21 18:32 76 20 95 01/13/21 18:31 71 21 179/117 H 01/13/21 18:19 74 16 200/108 H 97 01/13/21 16:52 98.4 F 82 20 214/166 H 95 Laboratory Results Laboratory Results WBC 12.36 K/uL (4.8-10.8) H 01/13/21 17:10 RBC 4.55 M/uL (4.7-6.1) L 01/13/21 17:10 Hgb 14.5 g/dL (14.0-18.0) 01/13/21 17:10 Hct 43.1 % (42-52) 01/13/21 17:10 MCV 94.7 fL (80-100) 01/13/21 17:10 MCH 31.9 pg (25-34) 01/13/21 17:10 MCHC 33.6 g/dL (32-36) 01/13/21 17:10 RDW Std Deviation 49.2 fL (36.4-46.3) H 01/13/21 17:10 RDW Coeff of Gregory 14.3 % (11.5-14.5) 01/13/21 17:10 Plt Count 208 K/uL (130-400) 01/13/21 17:10 MPV 9.8 fL (7.4-10.4) 01/13/21 17:10 Immature Gran % (Auto) 0.2 % 01/13/21 17:10 Neut % (Auto) 76.8 % 01/13/21 17:10 Lymph % (Auto) 14.3 % 01/13/21 17:10 [place] % (Auto) 7.6 % 01/13/21 17:10 Eos % (Auto) 0.9 % 01/13/21 17:10 Baso % (Auto) 0.2 % 01/13/21 17:10 Neut # (Auto) 9.49 K/uL (1.4-6.5) H 01/13/21 17:10 Lymph # (Auto) 1.77 K/uL (1.2-3.4) 01/13/21 17:10 [place] # (Auto) 0.94 K/uL (0.11-0.59) H 01/13/21 17:10 Eos # (Auto) 0.11 K/uL (0-0.5) 01/13/21 17:10 Baso # (Auto) 0.03 K/uL (0-0.2) 01/13/21 17:10 Immature Gran # (Auto) 0.02 K/uL (0.00-0.02) 01/13/21 17:10 PT 10.5 Seconds (9.0-12.0) 01/13/21 17:10 INR 1.0 (0.9-1.1) 01/13/21 17:10 APTT 24.5 Seconds (21.0-31.0) 01/13/21 17:10 PTT Ratio 0.9 01/13/21 17:10 Sodium 143 mmol/L (136-145) 01/13/21 17:10 Potassium 3.9 mmol/L (3.5-5.1) 01/13/21 17:10 Chloride 111 mmol/L (98-107) H 01/13/21 17:10 Carbon Dioxide 26 mmol/L (21-32) 01/13/21 17:10 Anion Gap 6.0 (3-11) 01/13/21 17:10 BUN 31 mg/dl (7-18) H 01/13/21 17:10 Creatinine 0.72 mg/dl (0.6-1.4) 01/13/21 17:10 Est Cr Clr Drug Dosing 76.5 ml/min 01/13/21 17:10 Est GFR ( Amer) 100.7 ml/min 01/13/21 17:10 Est GFR (Non-Af Amer) 86.9 ml/min 01/13/21 17:10 BUN/Creatinine Ratio 42.4 (10-20) H 01/13/21 17:10 Glucose 93 mg/dl (70-99) 01/13/21 17:10 Calcium 9.2 mg/dl (8.5-10.1) 01/13/21 17:10 Total Bilirubin 0.6 mg/dl (0.2-1) 01/13/21 17:10 AST 23 U/L (15-37) 01/13/21 17:10 ALT 52 U/L (12-78) 01/13/21 17:10 Alkaline Phosphatase 83 U/L (45-117) 01/13/21 17:10 Troponin I 0.110 ng/ml (0-0.045) H* 01/13/21 23:58 Total Protein 7.4 gm/dl (6.4-8.2) 01/13/21 17:10 Albumin 4.1 gm/dl (3.4-5.0) 01/13/21 17:10 Globulin 3.3 gm/dl (2.5-4.0) 01/13/21 17:10 Albumin/Globulin Ratio 1.2 (0.9-2) 01/13/21 17:10 COVID-19 Eval Order Covid19 at [facility] 01/13/21 19:08 SARS-CoV-2 (PCR) NEGATIVE (Negative) 01/13/21 19:08 Impressions Chest X-Ray 01/13/21 16:56 XR chest 1V portable CLINICAL HISTORY: Chest Pain COMPARISON STUDY: Chest CT October 29, 2020 FINDINGS: Lung volumes are normal. There is no pneumothorax or pleural effusion. Mild cardiomegaly is unchanged. There is pulmonary vascular congestion. Old left-sided rib deformities are noted. IMPRESSION: No acute cardiopulmonary findings. No significant change in appearance of the chest. ACT 112: Negative or not required by law. Electronically signed by: Alexander Jordan M.D. 01/13/2021 5:16 PM Code Status & VTE Plan Code Status Full code VTE Prophylaxis Plan VTE Prophylaxis will be ordered: Yes PG Care Time/CCT Total # of Minutes Spent Total Time Spent with Patient: Total time spent is greater than 50% in coordination of care (as documented) at patient's floor/unit and/or counseling patient: Coding Level of Care Code 53526 Initial Inpt Care Lvl 3 Diagnoses Non-ST elevation (NSTEMI) myocardial infarction I21.4 Hypertension I10 Hypertension type: unspecified Hypercholesterolemia E78.00 Impaired fasting glucose R73.01 (1) Hypertension Hypertension type: unspecified Qualified Code(s): I10 - Essential (primary) hypertension
[2021-01-13] MEDS ORDERED: CETIRIZINE HCL 10 MG TABLET PO PRN (23:34)
[2021-01-13] MEDS ORDERED: ONDANSETRON INJ 2 MG/ML 2 ML VIAL IV PRN (23:34)
[2021-01-13] MEDS ORDERED: ACETAMINOPHEN 325 MG TAB PO PRN (23:34)
[2021-01-14] MEDS: DESONIDE CR 15 GM TUBE EXT SCH ×3 (02:42→20:42)
[2021-01-14] MEDS: LOSARTAN POTASSIUM 50 MG TAB PO SCH ×2 (02:42→20:42)
[2021-01-14] MEDS: DOCUSATE SODIUM 100 MG CAP PO SCH ×3 (02:42→20:41)
[2021-01-14] MEDS: ASPIRIN 81 MG ECTAB PO SCH ×2 (02:44→20:41)
[2021-01-14] MEDS: ATORVASTATIN 40 MG TAB PO SCH ×2 (02:44→20:41)
[2021-01-14] MEDS: NITROGLYCERIN 2% OINTMENT 30GM TUBE EXT SCH ×4 (03:02→18:17)
[2021-01-14 07:38] LABS: Basophils # (auto) 0.03 K/uL (0-0.2); Basophils % (auto) 0.3 %; Eosinophils # (auto) 0.17 K/uL (0-0.5); Eosinophils % (auto) 1.9 %; Hematocrit (blood only) 41.6 % (42-52); Hemoglobin 13.7 g/dL (14.0-18.0); Immature Granulocytes # (auto) 0.01 K/uL (0.00-0.02); Immature Granulocytes % (auto) 0.1 %; Lymphocytes # (auto) 1.84 K/uL (1.2-3.4); Lymphocytes % (auto) 20.3 %; Mean Corpuscular Hemoglobin 30.8 pg (25-34); Mean Corpuscular Hgb Conc 32.9 g/dL (32-36); Mean Corpuscular Volume 93.5 fL (80-100); Mean Platelet Volume 9.8 fL (7.4-10.4); Monocytes # (auto) 0.82 K/uL (0.11-0.59); Neutrophils % (auto) 68.4 %; Platelet Count 176 K/uL (130-400); RDW Coefficient of Variation 14.4 % (11.5-14.5); RDW Standard Deviation 49.5 fL (36.4-46.3); Red Blood Count 4.45 M/uL (4.7-6.1); White Blood Count 9.07 K/uL (4.8-10.8)
[2021-01-14 08:11] LABS: Albumin Level 3.5 gm/dl (3.4-5.0); BUN Creatinine Ratio 39.8 (10-20); Calcium 8.8 mg/dl (8.5-10.1); Creatinine Clr Calc Pharmacy 76.5 ml/min; Est GFR (African American) 100.7 ml/min; Est GFR (Non-African American) 86.9 ml/min; Potassium 3.9 mmol/L (3.5-5.1)
[2021-01-14 08:13] LABS: Albumin Globulin Ratio 1.1 (0.9-2); Bilirubin,Total 0.9 mg/dl (0.2-1); Globulin 3.1 gm/dl (2.5-4.0); Total Protein 6.6 gm/dl (6.4-8.2)
[2021-01-14] MEDS ORDERED: CEROVITE ADV FORMULA TAB PO SCH (09:00)
--- NOTE | 2021-01-14 09:37 | Electrocardiogram Report ---
Test Reason : Blood Pressure : / mmHG Vent. Rate : 071 BPM Atrial Rate : 071 BPM P-R Int : 186 ms QRS Dur : 090 ms QT Int : 406 ms P-R-T Axes : 046 008 046 degrees QTc Int : 441 ms Sinus rhythm with occasional Premature ventricular complexes Otherwise normal ECG When compared with ECG of 17-JUL-2020 13:03, Premature ventricular complexes are now Present Confirmed by Tim Guerrero ([id number]) on 01/14/2021 9:37:20 AM Referred By: Letitia Jodran Confirmed By:Kraig Guerrero
[2021-01-14] MEDS ORDERED: diphenhydrAMINE 50 MG/ML VIAL IV ONE (10:50)
--- NOTE | 2021-01-14 10:59 | Cardiology Consultation ---
Date of Consultation January 14, 2021 Assessment & Plan (1) Non-ST elevation (NSTEMI) myocardial infarction: Patient's symptoms are consistent with a coronary syndrome, however, the event was a couple of days ago and in general he seems to be feeling well. He does have been mild elevation in his cardiac biomarkers. His biomarkers were normal at that time he was admitted for COVID-19. We did discuss the options for evaluation. I recommended invasive evaluation based on his symptoms, risk factors for coronary disease and mildly elevated biomarkers with previously documented normal markers and July of 2020. We discussed the risks and benefits of the procedure and will plan on proceeding later today. No current symptoms. Will continue aspirin and plan angiography later today. (2) Aortic atherosclerosis: (3) Hypercholesterolemia: Continue high-dose atorvastatin (4) Hypertension: Blood pressure appears to be normal. On losartan. History of Present Illness Reason for Consultation: Chest pain, elevated troponin Requesting Physician: Jeff Attending Physician: Haresh Lange History of Present Illness The patient is an 80-year-old gentleman without a known history of cardiac disease who was sought an emergency room evaluation for symptoms of chest discomfort. Seems that the patient's discomfort occurred 2 nights ago. He describes this as precordial in nature and an aching sensation. It was moderately severe in character. It was not positional in nature and not associated with other symptoms such as diaphoresis, shortness of breath or radiation. It is unclear how long the symptoms lasted. The patient feels it may have lasted 10 minutes to an hour. He has had some similar symptoms in the past but not this severe. He feels that the may have been 2 or 3 episodes over the past few months where he had a similar chest pain with exertion. However, he is a very active individual and exercises regularly. He also ascends and descends stairs quite frequently without these symptoms. He has not report symptoms of exertional dyspnea. No dizziness or lightheadedness. No sense of palpitation. No lower extremity edema. Claims to sleep well. Allergies Allergy/AdvReac Type Severity Reaction Status Date / Time Penicillins Allergy Unknown HIVES Verified 01/13/21 18:55 SHASHI Inhibitors Allergy cough Verified 01/13/21 18:55 iodine AdvReac Mild vomiting Verified 01/13/21 18:55 shellfish derived AdvReac Mild VOMIT Verified 01/13/21 18:55 Home Medications Medication Instructions Recorded Confirmed Type cetirizine 10 mg tablet 10 mg PO DAILY PRN tab 03/16/19 01/13/21 History docusate sodium 100 mg capsule 100 mg PO BID 03/16/19 01/13/21 History multivit,Ca,min-iron 8 mg-folic 1 tab PO QAM tab 03/16/19 01/13/21 History acid 200 mcg-lycopene 600 mcg tablet clindamycin phosphate 1 % topical 1 appln TOPICAL .APPLY SPARINGLY 06/05/19 01/13/21 History solution TO A PRN #1 ml desonide 0.05 % topical cream 1 applic TOPICAL BID #15 g 03/25/20 01/13/21 Rx aspirin [Aspirin Low Dose] 81 mg PO HS 07/17/20 01/13/21 History atorvastatin [Lipitor] 80 mg PO HS 01/13/21 01/13/21 History losartan 50 mg PO HS 01/13/21 01/13/21 History nystatin-triamcinolone 1 applic TOPICAL BID PRN 01/13/21 01/13/21 History Patient History Medical History Anaphylaxis due to shellfish Aortic atherosclerosis seen on AAA screen History of basal cell carcinoma Hypercholesterolemia Hypertension Impaired fasting glucose Prostate cancer treated with neoadjuvant hormone therapy, brachytherapy, external beam radiation Right knee DJD Seborrheic dermatitis Tubular adenoma of colon Vitamin D deficiency Surgical History History of appendectomy History of left knee replacement History of tonsillectomy History of vasectomy Social History Smoking Status: Former smoker Age Started Using Tobacco: 18; Age Quit Using Tobacco: 68; Years Smoked: 50; Number of Years Since Quit: 11; Hx Alcohol Use: Yes Alcohol type: wine Hx Substance Use: No Preferred Language: [place] Communication Ability: Effective Hearing Ability: Hard of Hearing 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 Mood and affect appeared normal. He answered all questions appropriately. HEENT: Pupils are equal and reactive to light and accommodation. Extraocular movements are intact. The sclerae are anicteric. Neuro: Cranial nerves intact Neck: Patient's neck is supple. He has palpable carotid pulses bilaterally without bruits on auscultation. There is no evidence of jugular venous distention. The thyroid is not enlarged. Lungs: Clear to auscultation bilaterally. He has good air movement without use of accessory muscles. No rales wheezes or rhonchi. Cardiac: Heart demonstrates normal rhythm with frequent ectopy and normal rate. Normal S1 and S2. No murmurs on examination. Pulses: The patient has palpable radial pulses bilaterally that are equal in intensity Extremities: There was no evidence of hypoperfusion. There is no cyanosis or clubbing. There is no edema. Skin: I did not appreciate any rashes on examination today. Results & Data ([facility]) Vital Signs (Past 12 Hours) Vital Signs Temp Pulse Pulse Resp BP BP Pulse Ox 01/14/21 07:46 36.7 C 62 20 138/76 96 01/14/21 07:33 54 L 01/14/21 00:14 67 01/13/21 23:34 36.7 C 58 L 16 181/79 H 98 01/13/21 23:00 63 18 148/76 H 94 Laboratory Results Abnormal Lab Results 01/13/21 01/13/21 01/13/21 17:10 17:10 17:10 WBC 12.36 H RBC 4.55 L Hgb 14.5 Hct 43.1 MCV 94.7 MCH 31.9 MCHC 33.6 RDW Std Deviation 49.2 H RDW Coeff of Gregory 14.3 Plt Count 208 MPV 9.8 Immature Gran % (Auto) 0.2 Neut % (Auto) 76.8 Lymph % (Auto) 14.3 [place] % (Auto) 7.6 Eos % (Auto) 0.9 Baso % (Auto) 0.2 Neut # (Auto) 9.49 H Lymph # (Auto) 1.77 [place] # (Auto) 0.94 H Eos # (Auto) 0.11 Baso # (Auto) 0.03 Immature Gran # (Auto) 0.02 PT 10.5 INR 1.0 APTT 24.5 PTT Ratio 0.9 Sodium 143 Potassium 3.9 Chloride 111 H Carbon Dioxide 26 Anion Gap 6.0 BUN 31 H Creatinine 0.72 Est Cr Clr Drug Dosing 76.5 Est GFR ( Amer) 100.7 Est GFR (Non-Af Amer) 86.9 BUN/Creatinine Ratio 42.4 H Glucose 93 Calcium 9.2 Total Bilirubin 0.6 AST 23 ALT 52 Alkaline Phosphatase 83 Troponin I 0.154 H* Total Protein 7.4 Albumin 4.1 Globulin 3.3 Albumin/Globulin Ratio 1.2 COVID-19 Eval Order SARS-CoV-2 (PCR) 01/13/21 01/13/21 01/13/21 19:08 19:08 23:58 WBC RBC Hgb Hct MCV MCH MCHC RDW Std Deviation RDW Coeff of Gregory Plt Count MPV Immature Gran % (Auto) Neut % (Auto) Lymph % (Auto) [place] % (Auto) Eos % (Auto) Baso % (Auto) Neut # (Auto) Lymph # (Auto) [place] # (Auto) Eos # (Auto) Baso # (Auto) Immature Gran # (Auto) PT INR APTT PTT Ratio Sodium Potassium Chloride Carbon Dioxide Anion Gap BUN Creatinine Est Cr Clr Drug Dosing Est GFR ( Amer) Est GFR (Non-Af Amer) BUN/Creatinine Ratio Glucose Calcium Total Bilirubin AST ALT Alkaline Phosphatase Troponin I 0.110 H* Total Protein Albumin Globulin Albumin/Globulin Ratio COVID-19 Eval Order Covid19 at [facility] SARS-CoV-2 (PCR) NEGATIVE 01/14/21 01/14/21 01/14/21 07:14 07:14 07:14 WBC 9.07 RBC 4.45 L Hgb 13.7 L Hct 41.6 L MCV 93.5 MCH 30.8 MCHC 32.9 RDW Std Deviation 49.5 H RDW Coeff of Gregory 14.4 Plt Count 176 MPV 9.8 Immature Gran % (Auto) 0.1 Neut % (Auto) 68.4 Lymph % (Auto) 20.3 [place] % (Auto) 9.0 Eos % (Auto) 1.9 Baso % (Auto) 0.3 Neut # (Auto) 6.20 Lymph # (Auto) 1.84 [place] # (Auto) 0.82 H Eos # (Auto) 0.17 Baso # (Auto) 0.03 Immature Gran # (Auto) 0.01 PT INR APTT PTT Ratio Sodium 145 Potassium 3.9 Chloride 113 H Carbon Dioxide 26 Anion Gap 5.0 BUN 29 H Creatinine 0.72 Est Cr Clr Drug Dosing 76.5 Est GFR ( Amer) 100.7 Est GFR (Non-Af Amer) 86.9 BUN/Creatinine Ratio 39.8 H Glucose 86 Calcium 8.8 Total Bilirubin 0.9 AST 21 ALT 47 Alkaline Phosphatase 72 Troponin I 0.084 H* Total Protein 6.6 Albumin 3.5 Globulin 3.1 Albumin/Globulin Ratio 1.1 COVID-19 Eval Order SARS-CoV-2 (PCR) Diagnostic Findings Chest x-ray obtained the time admission did not reveal any acute cardiopulmonary process ECG Additional Comments: EKG obtained the time admission revealed normal sinus rhythm without acute ST or T-wave changes PG Care Time/CCT Total # of Minutes Spent Total Time Spent with Patient: Total time spent is greater than 50% in coordination of care (as documented) at patient's floor/unit and/or counseling patient: Coding Level of Care Code 92281 OBS Care - Level 3 Diagnoses Non-ST elevation (NSTEMI) myocardial infarction I21.4 Aortic atherosclerosis I70.0 Hypercholesterolemia E78.00 Hypertension I10
[2021-01-14] MEDS ORDERED: methylPREDNISolone 40 MG in SYRINGE 0 ML IV ONE (11:00)
[2021-01-14] MEDS ORDERED: fentaNYL citrate 100 MCG/2 ML VIAL ONE (11:09)
[2021-01-14] MEDS ORDERED: niCARdipine HCL INJ 2.5 MG/ML 10 ML AMP ONE (11:09)
[2021-01-14] MEDS ORDERED: NITROGLYCERIN/D5W 100MCG/ML 20ML SYR ONE (11:09)
[2021-01-14] MEDS ORDERED: MIDAZOLAM HCL 1 MG/ML 2ML VIAL ONE (11:09)
[2021-01-14] MEDS ORDERED: HEPARIN (PORCINE) 1000 UNIT/ML 10 ML (CATH LAB USE ONLY) ONE (11:09)
--- NOTE | 2021-01-14 11:27 | Pre Anesthesia Assessment ---
Date of Service January 14, 2021 Pre Sedation Assessment Vital Signs Temp Pulse Pulse Resp BP BP Pulse Ox 01/14/21 07:46 36.7 C 62 20 138/76 96 01/14/21 07:33 54 L 01/14/21 00:14 67 01/13/21 23:34 36.7 C 58 L 16 181/79 H 98 01/13/21 23:00 63 18 148/76 H 94 01/13/21 22:30 66 21 125/73 93 01/13/21 22:00 69 16 131/79 93 01/13/21 21:30 61 20 126/72 95 01/13/21 21:00 58 L 17 148/78 H 95 01/13/21 20:30 61 20 137/91 95 01/13/21 20:00 58 L 16 154/88 H 95 01/13/21 19:42 66 15 158/87 H 95 01/13/21 19:01 70 22 171/107 H 95 01/13/21 19:00 76 16 01/13/21 18:32 76 20 95 01/13/21 18:31 71 21 179/117 H 95 01/13/21 18:19 74 16 200/108 H 97 01/13/21 16:52 36.9 C 82 20 214/166 H 95 Cardiovascular + regular rhythm Respiratory + respiratory effort normal Pre-Sedation Airway Assessment Smoking Status: Former smoker Hx Sleep Apnea: No Hx Difficult Intubation: No Short, Thick Neck: No Thyromental Distance: > or= 3.5 Finger Breadths Oral Cavity: + WNL Mallampati Class: III ASA: ASA3 Procedure Planning Contraindications for Sedation: none Current Medications Reviewed: Yes Notes The planned sedation has been discussed with the patient. Informed Consent was obtained. I have identified the patient, determined the appropriateness of sed ation and have assessed the patient immediately prior to the procedure. All medicine(s) and interventions are by my order.
[2021-01-14] MEDS ORDERED: HEPARIN 25000 UNIT/500 ML D5W IV ONE (12:21)
--- NOTE | 2021-01-14 12:23 | Post Anesthesia Assessment ---
Date of Service January 14, 2021 Post Sedation Assessment Vital Signs Temp Pulse Pulse Resp BP BP Pulse Ox 01/14/21 11:41 75 20 130/72 96 01/14/21 07:46 36.7 C 62 20 138/76 96 01/14/21 07:33 54 L 01/14/21 00:14 67 01/13/21 23:34 36.7 C 58 L 16 181/79 H 98 01/13/21 23:00 63 18 148/76 H 94 01/13/21 22:30 66 21 125/73 93 01/13/21 22:00 69 16 131/79 93 01/13/21 21:30 61 20 126/72 95 01/13/21 21:00 58 L 17 148/78 H 95 01/13/21 20:30 61 20 137/91 95 01/13/21 20:00 58 L 16 154/88 H 95 01/13/21 19:42 66 15 158/87 H 95 01/13/21 19:01 70 22 171/107 H 95 01/13/21 19:00 76 16 01/13/21 18:32 76 20 95 01/13/21 18:31 71 21 179/117 H 95 01/13/21 18:19 74 16 200/108 H 97 01/13/21 16:52 36.9 C 82 20 214/166 H 95 Recovery Score Activity: Moves 4 extremities Respiration: Deep Breath/Cough Circulation: +/-20% PreAnes Value Consciousness: Fully Awake Oxygen Saturation: > 92% On Room Air Discharge Sedation Level of Care: Fast Track Phase II Post Sedation Plan On clinical assessment, the patient appears to have tolerated the sedation without complications. Patient is recovering as anticipated. Patient will continue to be monitored by nursing and may be discharged when sedation discharge criteria are met per below protocol. Upon Completions of procedure up to 15 minutes continue every 5 minute vital signs and the P.A.R. score; then discharge to a Phase I or Fast Track to Phase II per the following guidelines: * Discharge Patient to appropriate Phase II area if PAR is 8 or greater or return to pre- procedure baseline. The post - procedure orders will be as directed. * If PAR score is less than 8 or not return to pre-procedure baseline then patient will follow Phase I monitoring till PAR is reached for Phase II. The Phase I may be done in procedure room or may call to secure a Phase I area. * If naloxone or flumazenil are used for reversal, hold in Phase I for continued monitoring from when last reversal dose was given for a minimum of 60 minutes or longer pending the nurse and/or physician discretion of patient condition before discharge to Phase II. Please call the Sedation Physician to re-evaluate and complete post-note for discharge to Phase II area. Do NOT discharge from procedure sedation or Phase 1 until post- sedation evaluation note is complete by procedure /sedation MD Sedation Discharge Instructions to be given to the patient at discharge to home.
--- NOTE | 2021-01-14 12:29 | Cardiac Catheterization ---
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 He was noted to have elevated cardiac biomarkers and based on his risk factors, symptoms and objective findings he was referred for coronary angiography. Procedure in detail: The patient was informed of the risk benefits and alternatives to the intended procedure. He understood and wished to proceed. He was taken to the cardiac catheterization suite in a fasting state. Conscious sedation was administered per protocol and the patient was monitored electrocardiographically throughout today's procedure. The right radial area was prepped and draped in usual sterile fashion. The right radial artery was subsequently accessed using Seldinger technique and a 6 Spanish sheath was placed at the site over guidewire. The sheath was used to facilitate passage of the cardiac catheters for left heart catheterization and selective coronary angiography. Images were obtained in multiple orthogonal views prior to removal of the catheter and sheath. Hemostasis was obtained at the access site using manual pressure. The patient tolerated the procedure well. There were no immediate complications. Equipment used: 5 Spanish [place] 4 Findings: Coronary angiography Left main: Left main was normal in size and caliber and bifurcated into the left anterior descending and left circumflex artery. There was a complex and partially calcified lesion which encompassed most of the left main and portions of the proximal LAD and left circumflex. This compromised the lumen approximately 80 to 90%. Left anterior descending colon left anterior descending was a large transapical vessel. It produced a large first diagonal with approximately 50% ostial disease. There were luminal irregularities in the remaining LAD without discrete stenoses. Left circumflex: The proximal left circumflex was compromised by the distal left main lesion. It produced a large first OM branch which she had a 30 to 40% stenosis in its proximal portion. There was a very diminutive second OM branch and a medium sized third OM branch. No additional stenoses in this distribution. Right coronary artery: The right coronary artery was a dominant vessel. It was medium in caliber. He had had a discrete 70% stenosis in its proximal portion. Impression: Severe coronary disease involving the left main and right coronary arteries. Right dominant coronary system No evidence of aortic stenosis Normal left ventricular pressures Hemodynamics Rest Ao:: 122/75 mmHg Final Ao: n/a LV: 128/0 mmHg with left ventricular end-diastolic pressure of 5 mmHg Recommendations Recommendations: CABG Specimens Specimens: None Radiation Exposure (mGy) 636 Contrast (mls) 45 Procedural Complication(s) None Disposition Interior Design Professor Holding/Recovery I attest to the content of the Intraoperative Record and any orders documented therein. Any exceptions are noted below. [facility] Card Cath Procedure Codes Cardiac Catheterization Procedure 1: Cardiovascular Cath Procedures: 50807 Coronaries and LHC (+/-LV) Moderate Sedation Procedure 1: Sedation/Anesthesia: 95969 Mod Sedation by the same physician;Init15 Min Child Age 5 & Up PG Care Time/CCT Total # of Minutes Spent Total Time Spent with Patient: Total time spent is greater than 50% in coordination of care (as documented) at patient's floor/unit and/or counseling patient:
--- NOTE | 2021-01-14 13:32 | XCELERA ---
[id number]
[2021-01-14] MEDS: METOPROLOL TARTRATE 25 MG TAB PO SCH ×2 (14:02→20:41)
[2021-01-14] MEDS ORDERED: Heparin IV Adult Wt-Based Standard *NO* Bolus Protocol IV ONE (16:24)
[2021-01-14] MEDS ORDERED: HEPARIN SODIUM/DEXTROSE 25,000 UNITS/500 ML BAG IV SCH (16:39)
--- NOTE | 2021-01-14 17:55 | Electrocardiogram Report ---
Test Reason : Blood Pressure : / mmHG Vent. Rate : 058 BPM Atrial Rate : 058 BPM P-R Int : 180 ms QRS Dur : 084 ms QT Int : 420 ms P-R-T Axes : 067 -04 049 degrees QTc Int : 412 ms Sinus bradycardia with sinus arrhythmia When compared with ECG of 13-JAN-2021 16:58, Premature ventricular complexes are no longer Present Confirmed by Tim Guerrero ([id number]) on 01/14/2021 5:54:37 PM Referred By: Letitia Jordan Confirmed By:Kraig Guerrero
[2021-01-14 18:45] LABS: Partial Thromboplastin Time 52.9 Seconds (21.0-31.0)
--- NOTE | 2021-01-14 22:12 | Hospitalist Progress Note ---
Date of Service January 14, 2021 Assessment & Plan (1) Non-ST elevation (NSTEMI) myocardial infarction: Non-STEMI/hypertension- The patient will be admitted to telemetry for serial cardiac enzymes, serial EKG's, cardiac rhythm monitoring and a 2-D echocardiogram with Dopplers. Continue aspirin 81 mg daily and losartan 50 mg p.o. daily Nitropaste 1 inch to anterior chest wall every 6 hours Consult cardiology (2) Hypertension: See above (3) Hypercholesterolemia: Continue atorvastatin 80 mg daily Check a fasting lipid panel (4) Impaired fasting glucose: Glucose 93 upon admission, on no medications Check a hemoglobin A1c Admission and Anticipated Discharge Date Admission Date: January 13, 2021 Results & Data Results & Data ([facility]) Vital Signs (Past 12 Hours) Vital Signs Temp Pulse Pulse Resp BP Pulse Ox 01/14/21 19:27 36.6 C 73 18 131/72 94 01/14/21 18:27 66 16 98 01/14/21 17:27 128/77 98 01/14/21 16:27 148/67 H 01/14/21 15:40 36.3 C L 54 L 20 152/83 H 95 01/14/21 15:27 68 16 136/88 98 01/14/21 15:00 68 01/14/21 14:57 60 14 168/72 H 100 01/14/21 14:27 54 L 16 152/68 H 99 01/14/21 14:12 67 14 167/72 H 97 01/14/21 13:57 62 14 138/77 97 01/14/21 13:42 37 C 69 67 14 140/79 98 01/14/21 13:00 73 20 173/80 H 98 01/14/21 12:45 73 20 165/86 H 98 01/14/21 12:30 70 20 132/50 L 98 01/14/21 11:41 75 20 130/72 96 PG Care Time/CCT Total # of Minutes Spent Total Time Spent with Patient: Total time spent is greater than 50% in coordination of care (as documented) at patient's floor/unit and/or counseling patient: Coding Diagnoses Non-ST elevation (NSTEMI) myocardial infarction I21.4 Hypertension I10 Hypertension type: unspecified Hypercholesterolemia E78.00 Impaired fasting glucose R73.01 (1) Hypertension Hypertension type: unspecified Qualified Code(s): I10 - Essential (primary) hypertension
--- NOTE | 2021-01-14 22:23 | Discharge Summary ---
Date of Service January 14, 2021 Admission HPI Per Admitting Provider The patient is an 80-year-old male with a history of hypertension, hypercholesterolemia, impaired fasting glucose, prostate cancer, seborrheic dermatitis, tubular adenoma of colon and vitamin D deficiency. He reports bertha salinas had exertional chest discomfort a few times since July 2020, however, he presented to the emergency department for this chest pain due to it occurring at rest. Work-up in the emergency department included a negative COVID-19 test. Troponin was elevated at 0.154. EKG showed normal sinus rhythm with PVCs, and no acute ST-T changes Principal Diagnosis NSTEMI Discharge Exam The patient is awake, alert and oriented 3, well developed and well nourished, normocephalic and atraumatic, lying in bed and in no acute distress. HEENT--PERRL, EOMI, mucous membranes and oropharynx dry. Neck--supple. No JVD. No bruits. Thyroid normal, trachea midline, no adenopathy. Heart--normal S1 and S2. No murmurs, rubs or gallops. Lungs--clear bilaterally, no respiratory distress, no accessory muscle use. Abdomen--normal bowel sounds and soft. Nontender. Nondistended, no hernias or masses, no organomegaly. Extremities--no cyanosis or clubbing. No edema. There are good distal pulses b/l. Dermatologic--normal skin turgor, normal color, no abnormal lymph nodes, no rash. Neurologic--cranial nerves II through XII grossly intact. Rheumatologic--normal range of motion. Psychiatric--normal affect. Discharge Data Allergies Allergy/AdvReac Type Severity Reaction Status Date / Time Penicillins Allergy Unknown HIVES Verified 01/13/21 18:55 SHASHI Inhibitors Allergy cough Verified 01/13/21 18:55 iodine AdvReac Mild vomiting Verified 01/13/21 18:55 shellfish derived AdvReac Mild VOMIT Verified 01/13/21 18:55 Consultations 01/13/21 18:41 ED Decision to Admit Stat 01/13/21 23:34 Consult Cardiology Routine 01/14/21 17:10 Burn CD for patient Stat Procedures Performed Operation Date: 01/14/21 12:30 Actual Procedures p Cath, Left with Cors and Vent - Efrain Guerrero MD s Cineradiography w/Routine Exam - Efrain Guerrero MD Ordered Studies 01/14/21 10:48 CL Cath Imgs for PACS use only Routine Hospital Course (1) Non-ST elevation (NSTEMI) myocardial infarction: Non-STEMI/hypertension- The patient will be admitted to telemetry for serial cardiac enzymes, serial EKG's, cardiac rhythm monitoring and a 2-D echocardiogram with Dopplers. Continue aspirin 81 mg daily and losartan 50 mg p.o. daily Nitropaste 1 inch to anterior chest wall every 6 hours Consult cardiology. Requires transfer due to CAD that requires CABG. Cath showed : Severe coronary disease involving the left main and right coronary arteries. Patient is agreeable for transfer. (2) Hypertension: See above (3) Hypercholesterolemia: Continue atorvastatin 80 mg daily (4) Impaired fasting glucose: Glucose 93 upon admission, on no medications Total Time Total Time Spent Total Time Spent (In Minutes): 32 Total Time Includes: Examination of the Patient, Discharge Planning and Medication Reconciliation Discharge Plan Discharge Items Patient Disposition: Transfer Acute Care Hospital Reason For Visit: NSTEMI Discharge Diagnosis: Severe CAD Activity: Per Instructions section Non-emergency contact: Primary Care Provider Call non-emergency contact if: you have any medication questions and your pain is concerning for you Follow-up/Referrals: Letitia Jordan MD [Primary Care Provider] - Diet: Regular Addtl Attending Provider Instructions: Coronary angiography Left main: Left main was normal in size and caliber and bifurcated into the left anterior descending and left circumflex artery. There was a complex and partial ly calcified lesion which encompassed most of the left main and portions of the proximal LAD and left circumflex. This compromised the lumen approximately 80 to 90%. Left anterior descending colon left anterior descending was a large transapical vessel. It produced a large first diagonal with approximately 50% ostial disease. There were luminal irregularities in the remaining LAD without discre te stenoses. Left circumflex: The proximal left circumflex was compromised by the distal left main lesion. It produced a large first OM branch which she had a 30 to 40% stenosis in its proximal portion. There was a very diminutive second OM branch and a medium sized third OM branch. No additional stenoses in this distribution. Right coronary artery: The right coronary artery was a dominant vessel. It was medium in caliber. He had had a discrete 70% stenosis in its proximal portion. Pending Studies at Discharge: No Stand-Alone Forms: My [facility] Skilled Items Patient informed of condition?: Yes DNR: No Discharge Level of Care: Other Communicable Disease: No Discharge Prognosis: Stable Lines: Peripheral IV Urinary Catheter: Yes Medications and DC Order Prescriptions: New metoprolol tartrate 25 mg Tablet 25 mg PO BID Qty: 60 RF: 0 Nitro-Bid 2 % Ointment 1 inch EXT Q6H Qty: 1 RF: 0 Continued clindamycin phosphate 1 % solution 1 appln topical .APPLY SPARINGLY TO A PRN (Reason: Rash) Qty: 1 RF: 0 Centrum Men 8 mg iron- 200 mcg-600 mcg tablet 1 tab PO QAM RF: 0 cetirizine [Zyrtec] 10 mg tablet 10 mg PO DAILY PRN (Reason: Allergy Symptoms) RF: 0 docusate sodium [Colace] 100 mg capsule 100 mg PO BID RF: 0 desonide 0.05 % cream 1 applic topical BID Qty: 15 RF: 2 aspirin [Aspirin Low Dose] 81 mg Tablet,Delayed Release (Dr/Ec) 81 mg PO HS RF: 0 losartan 50 mg tablet 50 mg PO HS RF: 0 atorvastatin [Lipitor] 80 mg tablet 80 mg PO HS RF: 0 nystatin-triamcinolone 100,000-0.1 unit/gram-% ointment 1 applic topical BID PRN (Reason: .) RF: 0 Discharge Orders: Discharge Order (Routine); Ordered 01/15/21 Ordered By: Bhavin Toth Admission Data Admit Date/Time: 01/13/21 20:43 Attending Provider: Haresh Lange Admit Provider: Cm Aguilar Primary Care Provider: Letitia Jordan Other Providers: Sony Alvarez Alexander W. Other Interventions: Discharge Summary Assessment (RN) Last Done: 01/15/21 01:18 Coding Level of Care Code D/C Day Management >30 mins Diagnoses Non-ST elevation (NSTEMI) myocardial infarction I21.4 Hypertension I10 Hypertension type: unspecified Hypercholesterolemia E78.00 Impaired fasting glucose R73.01
[2021-01-15] MEDS: NITROGLYCERIN 2% OINTMENT 30GM TUBE EXT SCH (00:53)
== END 2021-01-15 01:00 | disposition short-term general hospital (02) | DRG 282 ==
LOC: ED 16:48 → 2S 20:43 → SUATTDRO 20:43 → 2S 23:08

== ENCOUNTER 2023-06-28 08:59 | Observation (INO) ==
--- NOTE | 2023-05-23 14:05 | PAT Medication Instructions ---
Medication Instructions Date of Service May 23, 2023 Home Medications Medication Instructions Recorded metoprolol tartrate 25 mg tablet 25 mg PO BID #180 tabs 10/19/22 docusate sodium 100 mg capsule (Colace) 100 mg PO BID aspirin 81 mg tablet,delayed release (Sabina Low Dose Aspirin) 81 mg PO HS mecobalamin (vitamin B12) 1,000 mcg chewable tablet 1,000 mcg PO QAM metoprolol tartrate 25 mg tablet 25 mg PO BID atorvastatin 80 mg tablet (Lipitor) 80 mg PO HS losartan 50 mg tablet 50 mg PO QAM DO NOT take the morning of surgery docusate sodium 100 mg capsule (Colace) 100 mg PO BID mecobalamin (vitamin B12) 1,000 mcg chewable tablet 1,000 mcg PO QAM losartan 50 mg tablet 50 mg PO QAM Take morning of surgery With a small sip of water, OTHERWISE NOTHING TO EAT OR DRINK AFTER MIDNIGHT: metoprolol tartrate 25 mg tablet 25 mg PO BID Take evening before surgery docusate sodium 100 mg capsule (Colace) 100 mg PO BID aspirin 81 mg tablet,delayed release (Sabina Low Dose Aspirin) 81 mg PO HS (continue as normal unless told otherwise by surgeon) metoprolol tartrate 25 mg tablet 25 mg PO BID atorvastatin 80 mg tablet (Lipitor) 80 mg PO HS Other Notes If you have any questions please call us at [phone] or [phone] or [phone] or [phone]
--- NOTE | 2023-06-01 09:11 | Anesthesiology Consultation ---
Date of Service June 01, 2023 Assessment & Plan (1) Encounter for pre-operative examination: - Infectious disease screening: Per assessment on 06/01/23: No known infectious disease contacts or current infectious disease symptoms. No noted Covid positive test result in past 90 days. - Outpatient joint assessment: Pt currently scheduled for inpatient pathway. If surgeon requests review for outpatient joint pathway, patient is not recommended candidate for outpatient joint program from anesthesia standpoint. - Cardiology visit (11/19/22): "Patient presents today in routine follow-up. N otes no cardiac complaints. He continues to be active walking up to 10,000 steps a day. Still working without difficulty. No chest pains, tachy palpitations, syncope or near syncope. Mild gait instability, recently started on B12 supplements. No fevers chills or unexplained infections. No bleeding difficulties... Patient on guideline directed optimal medical regimen.. If LDL increases would consider adding acetamide otherwise all therapies to maintain.. Patient notes may be considering right knee replacement. He is to contact with surgical plan" > Patient contacted cardio to make them aware of upcoming surgery per [facility] cardio communication note (06/01)- Awaiting response from cardiology if anything further needed preoperatively from their perspective. Chart Review Chart Review: Patient seen in Pre Admission Testing Teaching & Discussion Pre-Anesthesia Teaching/Discussion Notes: Instructed NPO after midnight before surgery,except medications with 15 cc of water. Medication instructions provided according to the PAT guidelines. History Surgery Operation Date: 06/28/23 07:00 Proposed Procedures p Right Total Knee Arthroplasty - Juan Gallego MD Height/Weight Height: 5 ft 9 in Weight: 81 kg Allergies Allergy/AdvReac Type Severity Reaction Status Date / Time Penicillins Allergy Intermediate Hives Verified 05/30/23 15:54 shellfish derived Allergy Mild Vomiting Verified 05/30/23 15:54 SHASHI Inhibitors AdvReac Mild Cough Verified 06/01/23 09:42 iodine AdvReac Mild Vomiting Verified 05/30/23 15:54 Medications Home Medications Medication Instructions Recorded Confirmed Last Taken docusate sodium 100 mg capsule 100 mg PO BID 03/16/19 05/23/23 01/13/21 (Colace) aspirin 81 mg tablet,delayed 81 mg PO HS 07/17/20 05/23/23 01/12/21 release (Sabina Low Dose Aspirin) mecobalamin (vitamin B12) 1,000 1,000 mcg PO QAM 10/19/22 05/23/23 Unknown mcg chewable tablet metoprolol tartrate 25 mg tablet 25 mg PO BID #180 tabs 10/19/22 05/23/23 Unknown atorvastatin 80 mg tablet (Lipitor) 80 mg PO HS 05/23/23 05/23/23 Unknown losartan 50 mg tablet 50 mg PO QAM 05/23/23 05/23/23 Unknown Past Medical History Medical History Aortic atherosclerosis Noted on AAA screen Coronary artery disease CABG x3 (2020) Follows with Dr. Clark History of basal cell carcinoma Ear/nose History of COVID-19 Dx 2020- "mild symptoms," resolved History of non-ST elevation myocardial infarction (NSTEMI) 12/2020 History of prostate cancer Treated with neoadjuvant hormone therapy, brachytherapy, external beam radiation Hypercholesterolemia Hypertension Impaired fasting glucose Neutropenia Right knee DJD Rotator cuff syndrome of left shoulder Seborrheic dermatitis Exercise / Class Metabolic Activity II 4-5 Yardwork/Stairs/Walk up hill (one FS (no CP, no SOB)) Past Family History Family History Other Hypertension No family history of adverse response to anesthesia No family history of bleeding disorder Past Surgical History Surgical History History of appendectomy History of basal cell carcinoma excision History of bilateral cataract extraction History of cardiac cath 12/2020 ([place])- no stent > CABG x3 History of left knee replacement History of prostate biopsy History of tonsillectomy History of tooth extraction all teeth removed History of vasectomy S/P CABG x 3 12/2020 [place] [place] Past Anesthesia History No Hx of Anesthesia Complications and No Family Hx of Anesthesia Complications History of PONV No Hx of PONV and No Hx of Motion Sickness Social History Smoking Status: Former smoker tobacco type: pipe Do You Dip or Chew Tobacco: No Smoking End Date: Quit at age 68 (hx pipe) Hx Alcohol Use: Yes Alcohol type: wine alcohol intake frequency: holidays/special occasions only Hx Substance Use: No substance use type: does not use Review of Systems Patient denies chest pain, shortness of breath, dyspnea on exertion, fever, chills, cough, wheezing, palpitations. Physical Exam Vital Signs VITALS BP 159/91 P 63 TEMP 97.8 SP02 96%RA RESP 16 PHYSICAL Mildly decreased cervical extension range of motion. Full TMJ range of motion. TMD 3 finger breaths Mallampati Score 3 Dentition: upper/lower dentures Lungs: clear throughout to auscultation Cardiac: regular rate and rhythm, no murmurs noted Spine: normal Carotid arteries: negative bruit Extremities: no LE edema Lab Results Anesthesia Preop Results Results Anesthesia Widget: WBC 5.87 K/ul (4.8-10.8) 06/01/23 Hgb 14.4 g/dl (14.0-18.0) 06/01/23 Hct 42.7 % (42.0-52.0) 06/01/23 Plt 181 K/uL (130-400) 06/01/23 Na 143 mmol/L (136-145) 06/01/23 K 4.2 mmol/L (3.5-5.1) 06/01/23 Cl 109 mmol/L (98-107) H 06/01/23 CO2 27 mmol/L (21-32) 06/01/23 BUN 22 mg/dl (6-23) 06/01/23 Creat 0.76 mg/dl (0.6-1.4) 06/01/23 Glucose Level 112 mg/dl (70-99(Fasting)) H 06/01/23 PT 11.5 Seconds (9.0-12.0) 06/01/23 PTT 28.5 Seconds (21.0-31.0) 06/01/23 INR 1.1 (0.9-1.1) 06/01/23 HA1c 5.6 % (4.5-5.6) 04/06/23 Blood Type A Positive 06/01/23 Antibody Screen NEGATIVE 06/01/23 Testing Electrocardiogram Date: 06/01/23 NSR with first degree AVB at 60bpm. RBBB. Chest X-Ray Date: 06/01/23 FINDINGS: There are median sternotomy wires and mediastinal surgical clips. There is mild cardiomegaly without evidence for pulmonary edema. No con solidation is identified to suggest pneumonia. Old left-sided rib deformities are present. Linear left lower lung densities favor atelectasis or scarring. IMPRESSION: No acute cardiopulmonary findings. Echocardiogram Date: 01/16/21 EF 50-55%. AV sclerosis with low normal systolic function. Anteroseptal hypokinesis. No cLVH. No significant valvular disease. Mild LAD. Insufficient TR for estimation of pulmonary pressure. Cardiac Catheterization Date: 01/14/21 Coronary angiography Left main: Left main was normal in size and caliber and bifurcated into the left anterior descending and left circumflex artery. There was a complex and partially calcified lesion which encompassed most of the left main and portions of the proximal LAD and left circumflex. This compromised the lumen approximately 80 to 90%. Left anterior descending colon left anterior descending was a large transapical vessel. It produced a large first diagonal with approximately 50% ostial disease. There were luminal irregularities in the remaining LAD without discrete stenoses. Left circumflex: The proximal left circumflex was compromised by the distal left main lesion. It produced a large first OM branch which she had a 30 to 40% stenosis in its proximal portion. There was a very diminutive second OM branch and a medium sized third OM branch. No additional stenoses in this distribution. Right coronary artery: The right coronary artery was a dominant vessel. It was medium in caliber. He had had a discrete 70% stenosis in its proximal portion. Impression: Severe coronary disease involving the left main and right coronary arteries. Right dominant coronary system No evidence of aortic stenosis Normal left ventricular pressures *Subsequent CABG x3*
--- NOTE | 2023-06-24 08:17 | History & Physical Report ---
Date of Service June 24, 2023 Assessment & Plan (1) Right knee DJD: 83-year-old gentleman 7 years out from a left knee replacement with a advanced right knee pain and discomfort in moderate DJD with chondrocalcinosis. He has failed conservative treatment and like to have his right knee replaced. The left knee is done well. Plan: When taken to the operating do a right total knee replacement. The risks Mente this procedure explained the patient include but not limited to DVT PE the VTE infection neurological and vascular bleeding palm pain that limited range of motion incomplete relief of symptoms persistent pain etc. The patient understands and desires to proceed. Informed consent was obtained. Patient had issues with Anaya catheters in the past. We will just avoid this. If he needs catheterization he may need to have urology consult. As far as the discharge he is planned to be discharged to home with [facility] and his 's assistance. Will plan on aspirin for DVT prophylaxis. (2) Chondrocalcinosis of right knee: (3) Status post left knee replacement: History of Present Illness Chief Complaint: . Persistent right knee pain and discomfort. Primary Care Provider: Letitia Jordan MD . Patient is an 83-year-old gentleman who presents for surgical treatment of his right knee. He has A long history of knee problems had his left knee replaced 7 years ago. He is done quite well from this. Over the past several years he developed increased pain discomfort and swelling in his right knee. We have been injecting his knees which have become less successful over time. He has tried medicines which really do not help much at all. Is becoming more disabled by the pain. Is got global pain. The more he is up and onto more it hurts. 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 He would like to have his right knee replaced. Allergies Allergy/AdvReac Type Severity Reaction Status Date / Time Penicillins Allergy Intermediate Hives Verified 05/30/23 15:54 shellfish derived Allergy Mild Vomiting Verified 05/30/23 15:54 SHASHI Inhibitors AdvReac Mild Cough Verified 06/01/23 09:42 iodine AdvReac Mild Vomiting Verified 05/30/23 15:54 Home Medications Medication Instructions Recorded Confirmed Type docusate sodium 100 mg capsule 100 mg PO BID 03/16/19 05/23/23 History (Colace) aspirin 81 mg tablet,delayed 81 mg PO HS 07/17/20 05/23/23 History release (Sabina Low Dose Aspirin) mecobalamin (vitamin B12) 1,000 1,000 mcg PO QAM 10/19/22 05/23/23 History mcg chewable tablet metoprolol tartrate 25 mg tablet 25 mg PO BID #180 tabs 10/19/22 05/23/23 Rx atorvastatin 80 mg tablet (Lipitor) 80 mg PO HS 05/23/23 05/23/23 History losartan 50 mg tablet 50 mg PO QAM 05/23/23 05/23/23 History Past Med/Surg History Medical History (Updated 06/24/23 @ 08:15 by Juan Gallego MD) Chondrocalcinosis of right knee History of COVID-19 Dx 2020- "mild symptoms," resolved History of prostate cancer Treated with neoadjuvant hormone therapy, brachytherapy, external beam radiation History of non-ST elevation myocardial infarction (NSTEMI) 12/2020 Rotator cuff syndrome of left shoulder Coronary artery disease CABG x3 (2020) Follows with Dr. Eduardo Bryant Right knee DJD Aortic atherosclerosis Noted on AAA screen History of basal cell carcinoma Ear/nose Hypercholesterolemia Hypertension Impaired fasting glucose Seborrheic dermatitis Surgical History (Updated 06/24/23 @ 08:15 by Juan Gallego MD) Status post left knee replacement History of prostate biopsy History of tooth extraction all teeth removed History of basal cell carcinoma excision History of bilateral cataract extraction History of cardiac cath 12/2020 ([place] no stent > CABG x3 History of left knee replacement S/P CABG x 3 12/2020 [place] [place] History of tonsillectomy History of appendectomy History of vasectomy Family History Other Hypertension No family history of adverse response to anesthesia No family history of bleeding disorder Social History Smoking Status: Former smoker Tobacco Type: Pipe Age Started Using Tobacco: 18; Age Quit Using Tobacco: 68; Smoking End Date: Quit at age 68 (hx pipe); Second Hand Exposure: No; Do You Dip or Chew Tobacco: No; Tobacco Cessation Education Requested by Patient: No Hx Alcohol Use: Yes Alcohol type: wine Hx Substance Use: No Preferred Language: Czech Communication Ability: Effective Hearing Ability: Hard of Hearing [employer] Secretary Required: No Beliefs That Will Affect Care: None marital status: Current Living Situation: Spouse current occupational status: employed 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 Other Information That Helps Us Care for You: No Feels Safe at Home: Yes Safety Concerns: Feels Safe At This Time Dental Care, Regularly: Yes Physical Activity Frequency: 3-4 Times per Week Assistive Devices: Denture - Upper, Denture - Lower and Glasses Assistive Devices Comment: reading glasses Review of Systems All systems reviewed & are unremarkable except as noted in HPI & below. Physical Exam . Physical examination reveals pleasant middle-age male. Looks younger than stated age. Examination of the right knee reveal patient ambulates independently. He is got a small knee effusion. He is tender primarily on the medial side of his knee. Range of motion about 5 degrees short full extension 120 degrees of flexion. Small knee effusion. No pain with hip and hip motion. No knee instability. Constitutional WD/WN, vitals as above Neck trachea midline, no thyromegaly Respiratory normal respiratory effort, lungs clear to auscultation Cardiovascular RRR, no murmur, no edema Gastrointestinal (Abdomen) normal bowel sounds, soft, nontender, no hepatosplenomegaly Results & Data Results & Data Laboratory Results . Diagnostic Findings . X-rays of the right knee reviewed. Shows moderate right knee arthritis. He is got significant chondrocalcinosis both medially and laterally. Is got 50% loss of the joint space. The left knee replaced looks me good position without problems. PG Care Time/CCT Total # of Minutes Spent Total Time Spent with Patient: Total time spent is greater than 50% in coordination of care (as documented) at patient's floor/unit and/or counseling patient: Coding Level of Care Code None Diagnoses Right knee DJD M17.11 Chondrocalcinosis of right knee M11.261 Status post left knee replacement Z96.652
[~2023-06-28 08:59] MED LIST changes: +ACETAMINOPHEN 500 MG TAB PO SCH; -ASPEC325 PO; -ATOR-24 PO; -BIOT1TAB5 PO; +BUPIVACAINE 0.5 % 5 MG/1 ML PF 10ML VIAL ONE; +BUPIVACAINE LIPOSOME/PF 266 MG, BUPIVACAINE/EPINEPHRINE 50 ML, SODIUM CHLORIDE 0.9% PF ... INFIL SCH; -CETI10TA84 PO; -CLC100 PO; +CeleBREX 200 MG CAP PO SCH; -DICL-201 PO; +FAMOTIDINE 20 MG TAB PO SCH; -GLUC1CAP35 PO; -LOSA50TA6 PO; +LR 500ML BOLUS, THEN 15ML/HR IV SCH; +LR 60ML/HR IV SCH; +METOCLOPRAMIDE HCL 10 MG TABLET PO SCH; -MULT-506 PO; +ROPIVACAINE 0.5% 5 MG/ML 30 ML VIAL ONE; +TRANEXAMIC ACID 1,000 MG **IV Intra-op IV SCH; +ceFAZolin 2000MG 2,000 MG/15 ML SYR IV SCH
--- NOTE | 2023-06-28 09:11 | History & Physical Bridge Note ---
Date of Service June 28, 2023 History & Physical Bridge Note I have examined the patient, reviewed the History & Physical and in the interval since the performance of the History & Physical I have noted the following changes of clinical significance: no changes noted
[2023-06-28] MEDS ORDERED: MIDAZOLAM HCL 1 MG/ML 2ML VIAL ONE (09:42)
[2023-06-28] MEDS ORDERED: PROPOFOL IV EMULSION 10 MG/ML 100 ML VIAL IV ONE ×3 (09:43→12:54)
[2023-06-28] MEDS ORDERED: ONDANSETRON INJ 2 MG/ML 2 ML VIAL ONE (09:43)
[2023-06-28] MEDS ORDERED: LIDOCAINE 2% 2 ML VIAL/AMP(20MG/ML) INFIL ONE (09:43)
[2023-06-28] MEDS ORDERED: fentaNYL citrate PF 100 MCG/2 ML VIAL IV PRN (10:29)
[2023-06-28] MEDS ORDERED: ONDANSETRON INJ 2 MG/ML 2 ML VIAL IV PRN ×2 (10:29→14:28)
[2023-06-28] MEDS ORDERED: ATROPINE SULFATE 0.1 MG/ML 10ML SYR IV PRN (10:29)
[2023-06-28] MEDS ORDERED: ePHEDrine sulfate 50 MG/ML AMP IV PRN (10:29)
[2023-06-28] MEDS ORDERED: BUPIVACAINE/EPINEPHRINE 0.25% 1:200,000 30 ML VIAL ONE (11:12)
[2023-06-28] MEDS ORDERED: SODIUM CHLORIDE 0.9% PF 50 ML VIAL ONE (11:12)
[2023-06-28] MEDS ORDERED: BUPIVACAINE LIPOSOME 1.3% 266 MG/20 ML VIAL ONE (11:13)
[2023-06-28] MEDS ORDERED: PHENYLEPHRINE HCL 10 MG/ML VIAL ONE (11:44)
[2023-06-28] MEDS ORDERED: SODIUM CHLORIDE 0.9% PF INJ 10 ML VIAL ONE (11:44)
[2023-06-28] MEDS ORDERED: KETOROLAC 30 MG/ML VIAL ONE (11:49)
[2023-06-28] MEDS ORDERED: ePHEDrine sulfate 50 MG/ML AMP ONE (12:23)
--- NOTE | 2023-06-28 13:23 | Operative Report ---
PG Post Operative Report Pre & Post Diagnosis Operation Date: 06/28/23 10:40 Pre-Op Diagnosis: Right Knee Advanced Degenerative Joint Disease with chondrocalcinosis Post-Op Diagnosis: Right Knee Advanced Degenerative Joint Disease with chondrocalcinosis I identified the patient and participated in the time-out.: Yes Procedure Operation Date: 06/28/23 10:40 Actual Procedures p Right Total Knee Arthroplasty(Right) - Juan Gallego MD Surgeon Juan Gallego MD Spring Intern Alejandro Pinedo PA-C Estimated Blood Loss 50 Findings Consistent with Post-Op Diagnosis Operative findings revealed a small knee joint effusion. He had some focal grade 4 changes the medial femoral condyle. There is no eburnation or significant osteophyte formation. He did appear to have chondrocalcinosis of the cartilage. Fairly mild to moderate wear of the articular surface and in of itself. Specimens Right knee sent for pathology. Anesthesia Type Spinal MAC Complications none Disposition Accompanied Patient To Recovery: No Indications Patient is an 83-year-old very active gentleman who is status post a left knee replacement about 6 years ago. He is done well from that side. Over the past several years he developed increased pain discomfort in his right knee. He failed conservative measures. He was strongly desiring a knee arthroplasty. Description of Procedure Operative implants consist of: 1 Biomet Vanguard size 70 right posterior stabilized femoral component. 2. Biomet size 71 tibial tray. 3. 10 mm post stabilized polyethylene insert. 4. 31 x 8 all poly patella. The patient was taken the operating, identified, placed on the operating table in the supine position. All contact areas were appropriately padded. IV antibiotics 5 by anesthesia team. A spinal anesthetic and abductor canal block had provided in the holding area. Right Tetrick was then placed. The right lower extremities then prepped and draped in usual sterile fashion. The right leg was elevated exsanguinated with use of an Esmarch and the tourniquet was placed at 300 mmHg. An anterior approach to the right knee was examined to longitudinal incision centered over the patella. Sharp dissection was carried through subcutaneous tissue down the extensor mechanism. A medial parapatellar arthrotomy incision was made. Some subperiosteal dissection was carried out medially. The fat pad was resected from Neath patella tendon. Lateral patellofemoral ligament was released. Patella subluxated laterally and the knee was flexed. The osteophytes were taken off distal femur. The ACL and PCL released from distal femur and the tibia subluxated anteriorly. External treatment line jig was then placed on the anterior face of the tibia and adjusted 14 mm medially. Proximal tibial cut was made to remove about 400 mm of bone from the medial side. He did not have any significant bone destruction. The tibia was then sized to a size 71. Attention drawn the femur. The distal femur was then with a sharp drill. Intramedullary canal was suction. Right 6 degree valgus cutting guide was placed. Distal femoral cutting block was pinned in place. Distal femoral cut was made to take an additional 3 mm bone off distal femur. The femur was then sized to a size 70. The AP cutting block was pinned parallel to the epicondylar axis which was 3 degrees of external rotation. The anterior cut, anterior chamfer, posterior cut, posterior chamfer cuts were made. The box cutting guide was placed in the just slight lateral and the box cut was made. The knee was flexed. The remnants of the medial and lateral menisci were excised. The osteophytes were taken off the posterior aspect the femur. A trial femoral component was placed through the tibial tray was pinned Arleen external rotation and the drill and stem punch were used to create defect in proximal tibia for the tibial tray. The knee was then trialed and the 10 mm insert fit most appropriately. Attention drawn the patella. The patella was cleaned of all soft tissue. Patella thickness measured 24 mm in thickness was cut down to 14. Was sized to a size 31 patella. The lug holes were drilled for 31 patella. The lateral osteophytes removed. Patella button was placed. Knee was taken through range of motion patella tracked nicely with no thumbs test. Attention drawn to placing the permanent components. Nupathe all trial components were removed. Bone plug was placed in the distal femur to limit blood loss. A double batch Palacos G cement was mixed. A Biomet Vanguard size 70 right Po stabilized femoral component, size 71 tibial tray, 10 mm post stabilized polyethylene insert, and a 31 x 8 all poly patella were then cemented in place. Knee was brought out into full extension till cement hardened. Final cement check was then performed. The pericapsular tissues were injected with total of 100 cc of combination of 20 cc of Exparel, 30 cc normal saline, 50 cc of quarter percent Marcaine with epinephrine. Patient did receive 1 g tranexamic acid. The tourniquet was let down for final tourniquet time of 55 minutes. Hemostasis assured use electrocautery. Extensor mechanism then closed with combination 1 PDS suture #1 Vicryl suture in a [id number] fashion. Extensor mechanism checked found to be intact and subcutaneous tissue then closed with 2-0 Dexon suture in a buried interrupted fashion skin was closed with skin kristin. Leg was then cleaned and dried and sterile dressing was Xeroform, 4 fours, sterile cast padding, Vasyl bandage were applied. Patient then transferred to the recovery room in stable condition. Patient tolerated procedure well no complications. Alejandro Pinedo, my physician assistant boiler operator, was present for the entire procedure. His assistance was essential and required for appropriate patient positioning, prepping and draping, surgical exposure, performing the technical details of the operation, placement the implants, closure of the wound, and placement of the sterile bandage. I attest to the content of the Intraoperative Record and any orders documented therein. Any exceptions are noted below.
--- NOTE | 2023-06-28 13:47 | XRay Report ---
TWO VIEWS RIGHT KNEE CLINICAL HISTORY: Postoperative examination. FINDINGS: AP and crosstable lateral portable views of the right knee are obtained. A right knee arthr oplasty is in near anatomic alignment. There has been undersurface remodeling of the patella. No acut e fracture is seen. There are expected postoperative changes around the knee including skin clips, so ft tissue edema, and subcutaneous gas. IMPRESSION: Expected postoperative changes status post right knee arthroplasty. No acute fracture is seen. ACT 112: Negative or not required by law. Electronically signed by: Marin Griffin M.D. 06/28/2023 1:46 PM
[2023-06-28] MEDS ORDERED: METOCLOPRAMIDE HCL INJ 5 MG/ML 2 ML VIAL IV PRN (14:28)
[2023-06-28] MEDS ORDERED: ALUMINUM/MAGNESIUM SUSP 30 ML UDC PO PRN (14:28)
[2023-06-28] MEDS ORDERED: CARBOHYDRATES FOR HYPOGLYCEMIA PO PRN (14:28)
[2023-06-28] MEDS ORDERED: GLUCOSE 40% GEL 15 GM TUBE PO PRN (14:28)
[2023-06-28] MEDS ORDERED: GLUCOSE 10 TAB/TUBE PO PRN (14:28)
[2023-06-28] MEDS ORDERED: NALOXONE HCL 0.4 MG/1 ML VIAL/CARP IV PRN (14:28)
[2023-06-28] MEDS ORDERED: GLUCAGON FOR INJ 1 MG VIAL SQ PRN (14:28)
[2023-06-28] MEDS ORDERED: MAGNESIUM HYDROXIDE SUSP 30 ML UDC PO PRN (14:28)
[2023-06-28] MEDS ORDERED: bisacodyL 10 MG SUPP PR PRN (14:28)
[2023-06-28] MEDS ORDERED: PHARMACY GLYCEMIC MGMT CONSULT PRN (14:28)
[2023-06-28] MEDS ORDERED: DEXTROSE 50% 50 ML SYRINGE IV PRN (14:28)
[2023-06-28] MEDS ORDERED: HYDROmorphone INJ 0.5 MG/0.5 ML SYR IV PRN (14:28)
--- NOTE | 2023-06-28 14:38 | Anesthesiology Progress Note ---
Date of Service June 28, 2023 Anesthesia Post Procedure Vital Signs Vital Signs: Temp Pulse Resp BP Pulse Ox O2 Del Method 06/28/23 14:25 36.3 C L 80 17 113/75 94 Room Air 06/28/23 14:10 36.2 C L 77 17 121/71 93 Room Air 06/28/23 14:00 81 16 97/51 L 93 Room Air 06/28/23 13:50 87 23 118/67 96 Room Air 06/28/23 13:40 83 15 100/58 L 93 Room Air 06/28/23 13:30 87 17 111/62 94 Room Air 06/28/23 13:23 36.1 C L 84 18 87/65 L 96 Room Air 06/28/23 09:49 36.6 C 88 20 160/100 H 93 Room Air Transfer of Care Handoff Completed per policy Notes Mental Status: alert / awake / arousable and participated in evaluation Patient Amnestic to Procedure: Yes Nausea / Vomiting: adequately controlled Pain: adequately controlled Airway Patency, RR, SpO2: stable & adequate BP & HR: stable & adequate Hydration State: stable & adequate Neuraxial Anesthesia: was administered and sensory block is resolving Anesthetic Complications: no major complications apparent and Pt Satisfied with anesthetic care
[2023-06-28] MEDS: SODIUM CHLORIDE 0.9% 1,000 ML IV SCH (16:04)
[2023-06-28] MEDS: KETOROLAC TROMETHAMINE 15 MG/ML VIAL IV SCH (17:38)
[2023-06-28] MEDS: ASCORBIC ACID 500 MG TAB PO SCH (18:39)
[2023-06-28] MEDS ORDERED: TRANEXAMIC ACID / 0.7% NACL 1,000 MG/100 ML BAG IV SCH (19:30)
[2023-06-28] MEDS: METOPROLOL TARTRATE 25 MG TAB PO SCH (20:31)
[2023-06-28] MEDS: ASPIRIN 81 MG ECTAB PO SCH (20:31)
[2023-06-28] MEDS: DOCUSATE SODIUM 100 MG CAP PO SCH (20:32)
[2023-06-28] MEDS: ACETAMINOPHEN 500 MG TAB PO SCH (20:37)
[2023-06-28] MEDS ORDERED: ATORVASTATIN 40 MG TAB PO SCH (21:00)
[2023-06-28] MEDS ORDERED: SENNA 8.6 MG TAB PO SCH ×2 (21:00)
[2023-06-28] MEDS ORDERED: DOCUSATE SODIUM 100 MG CAP PO SCH (21:00)
[2023-06-28] MEDS: ceFAZolin 2000MG 2,000 MG/15 ML SYR IV SCH (21:01)
[2023-06-28] MEDS ORDERED: Nursing to Pharmacy Communication SCH (21:15)
[2023-06-29] MEDS: oxyCODONE HCL IR 5 MG TAB (IMMEDIATE RELEASE) PO PRN ×3 (00:15→12:47)
[2023-06-29] MEDS: KETOROLAC TROMETHAMINE 15 MG/ML VIAL IV SCH ×3 (00:15→12:09)
[2023-06-29] MEDS: SODIUM CHLORIDE 0.9% 1,000 ML IV SCH (02:54)
[2023-06-29] MEDS: ceFAZolin 2000MG 2,000 MG/15 ML SYR IV SCH (04:07)
[2023-06-29] MEDS: ACETAMINOPHEN 500 MG TAB PO SCH (05:10)
[2023-06-29 07:34] LABS: Hematocrit (blood only) 33.6 % (42.0-52.0); Hemoglobin 11.3 g/dl (14.0-18.0); Mean Corpuscular Hemoglobin 31.7 pg (25.0-34.0); Mean Corpuscular Hgb Conc 33.6 g/dL (32.0-36.0); Mean Corpuscular Volume 94.4 fL (80.0-100.0); Mean Platelet Volume 9.3 fL (9.4-12.4); Platelet Count 144 K/uL (130-400); Red Blood Count 3.56 M/uL (4.70-6.10); White Blood Count 6.46 K/ul (4.8-10.8)
[2023-06-29] MEDS ORDERED: dexAMETHasone 4 MG TAB PO SCH (08:00)
[2023-06-29] MEDS: ASCORBIC ACID 500 MG TAB PO SCH (08:00)
[2023-06-29 08:01] LABS: BUN Creatinine Ratio 26.3 (10-20); Calcium 8.2 mg/dl (8.6-10.3); Creatinine Clr Calc Pharmacy 69.9 ml/min; Est GFR (African American) 96.4 ml/min; Est GFR (Non-African American) 83.2 ml/min; Potassium 3.9 mmol/L (3.5-5.1)
[2023-06-29] MEDS: DOCUSATE SODIUM 100 MG CAP PO SCH (08:01)
[2023-06-29] MEDS: ASPIRIN 81 MG ECTAB PO SCH (08:01)
[2023-06-29] MEDS: METOPROLOL TARTRATE 25 MG TAB PO SCH (08:02)
[2023-06-29] MEDS ORDERED: LOSARTAN POTASSIUM 50 MG TAB PO SCH (09:00)
[2023-06-29] MEDS ORDERED: MULTIVITAMIN TAB PO SCH (09:00)
[2023-06-29] MEDS ORDERED: CYANOCOBALAMIN (B-12) 500 MCG TABLET PO SCH (09:00)
[2023-06-29] MEDS ORDERED: TAMSULOSIN HCL 0.4 MG CAP PO SCH (09:00)
--- NOTE | 2023-06-29 11:49 | Orthopedic Progress Note ---
Date of Service June 29, 2023 Assessment & Plan (1) Status post right knee replacement: Overall he is doing very well today with good pain control to the right knee. He was seen and did quite well with physical therapy today with ambulation and range of motion exercises. He is on aspirin for DVT prophylaxis. He can be discharged home later today. He will follow-up with orthopedics in 2 weeks for postoperative care. Subjective . Asif was seen and examined at bedside this morning. Overall he is doing very well with barely any pain to the right knee. He was seen by physical therapy today for ambulation and range of motion exercises stated that this went well. He has no complaints today. Review of Systems All systems reviewed & are unremarkable except as noted in HPI & below. Physical Exam . On physical examination the right knee, his dressings are in place, clean, dry. His leg is out in full extension. Active plantarflexion dorsiflexion to the right ankle. +2 DP and PT pulses. Less than 2-second capillary refill. Normal sensation. Neurovascular intact. Results & Data Results & Data Laboratory Results . Diagnostic Findings . Postoperative x-rays of the right knee show the prosthesis to be in anatomical alignment with no evidence of fracture complication or loosening PG Care Time/CCT Total # of Minutes Spent Total Time Spent with Patient: Total time spent is greater than 50% in coordination of care (as documented) at patient's floor/unit and/or counseling patient: Coding Level of Care Code 87417 Post Operative Follow-Up Diagnoses Status post right knee replacement Z96.651
--- NOTE | 2023-06-29 11:51 | Discharge Summary ---
Date of Service June 29, 2023 Admission HPI (Per Admitting) . Patient is an 83-year-old gentleman who presents for surgical treatment of his right knee. He has A long history of knee problems had his left knee replaced 7 years ago. He is done quite well from this. Over the past several years he developed increased pain discomfort and swelling in his right knee. We have been injecting his knees which have become less successful over time. He has tried medicines which really do not help much at all. Is becoming more disabled by the pain. Is got global pain. The more he is up and onto more it hurts. 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 He would like to have his right knee replaced. Admission Exam (Per Admitting) . Physical examination reveals pleasant middle-age male. Looks younger than stated age. Examination of the right knee reveal patient ambulates independently. He is got a small knee effusion. He is tender primarily on the medial side of his knee. Range of motion about 5 degrees short full extension 120 degrees of flexion. Small knee effusion. No pain with hip and hip motion. No knee instability. Principal Diagnosis Same as "Discharge Diagnosis" noted below under Discharge Instructions. Discharge Exam . On physical examination the right knee, his dressings are in place, clean, dry. His leg is out in full extension. Active plantarflexion dorsiflexion to the right ankle. +2 DP and PT pulses. Less than 2-second capillary refill. Normal sensation. Neurovascular intact. Discharge Data Procedures Performed Operation Date: 06/28/23 10:40 Actual Procedures p Right Total Knee Arthroplasty(Right) - Juan Gallego MD Ordered Studies 06/28/23 05:00 US - OR guided needle placemen Routine Hospital Course (1) Status post right knee replacement: On June 28, 2023 Asif arrived at [facility] and underwent a right knee replacement without complications. He had a spinal anesthetic. Postoperatively, he was started on aspirin for DVT prophylaxis and transferred to the general orthopedic floor. His hospital course was uneventful. On postoperative day #1, his vital signs were stable and his pain was well- controlled. He was able to participate well with physical therapy doing ambulation and range of motion exercises. He was then discharged home. He will follow-up with orthopedics in 2 weeks for postoperative care. PG Care Time/CCT Total # of Minutes Spent Total Time Spent with Patient: Total time spent is greater than 50% in coordination of care (as documented) at patient's floor/unit and/or counseling patient: Discharge Plan Discharge Items Patient Disposition: Home - Home Health Services Reason For Visit: Right Knee Degenerative Joint Disease Discharge Diagnosis: Right Knee Replacement Activity: Per Instructions section Weightbearing: Full weightbearing Non-emergency contact: Surgeon Call non-emergency contact if: you have any medication questions Follow-up/Referrals: Letitia Jordan MD [Primary Care Provider] - Diet: Regular Addtl Attending Provider Instructions: ACTIVITY RECOMMENDATIONS: Physical Therapy: * You will go to physical therapy three times each week for four to six weeks after your surgery in order to regain your knee range of motion and to retrain your knee to work properly. * It is just as important to make sure you are getting your knee perfectly straight as it is to regain your knee bend. * Taking a pain pill an hour before therapy can help you have a more productive and comfortable therapy session. Home Exercise: * You were shown a series of exercises (heel props, heel slides, etc.) in the hospital. Do these exercises three to four times each day including the exercises you were shown in physical therapy. Walking: * Get up and walk several times each day. For the first four weeks, try not to stand or walk for more than one hour at a time. If you do stand or walk for more than one hour, you will not hurt anything, but your knee and leg will likely swell. * As you feel comfortable, you may change from the walker or crutches to a cane and then to independent walking. MEDICATIONS: New Medicine: * You will likely be taking one or more of these medications: 1. Oxycodone - A quick and shorter-acting pain medication. Take one to two tablets every six hours to lessen your pain. 2. Aspirin - Thins your blood to lessen the chance of forming a blood clot. * The most common side effects of pain medicine and iron are nausea and constipation. If nausea or constipation is too much of a problem or if you have any questions about your new medicines or doses, call [facility] at . We will try to help you manage these issues. "VERY IMPORTANT TO READ AND REVIEW" Pain: * The immediate post-operative period after knee replacement surgery is often quite painful. * You are given a prescription for pain medicine. You should take it, as directed, when you need it, especially before physical therapy and before going to bed. Pain that interferes with sleep is very common and can last several months. * You will likely need pain medicine for the first four to six weeks. It will not stop all of the pain. The pain will lessen and as you feel better, you may change to milder pain medicine such as Tylenol. * The most common side effects of pain medicine are nausea and constipation, so don't take more than you need. SPECIAL CARE INSTRUCTIONS: TEDs/Elastic Stockings: * The white elastic stockings help limit swelling and prevent blood clots from forming in your legs. The more you wear them, the more they work. * Wear them for six weeks after knee replacement surgery and four weeks after partial knee replacement. Incision Site Care: * Remove dressing postoperative day 2 and then shower. Keep direct shower pressure off the incision site. * After showering, cover kristin with dry gauze and change daily or more frequently if the dressing is getting saturated with drainage. * Use the CHRISTINE stockings to hold dressing in place. DO NOT apply tape on the skin. * May completely stop using bandage if wound is dry and no drainage * Franklin are removed between 2 and 3 weeks post-op. If your follow-up appointment is made before 2 weeks, please have your appointment re- scheduled. It is too early to remove the kristin. Prevention of Infection: * Take antibiotics one hour before any dental cleaning, dental work, urological procedure, gastrointestinal procedure or any invasive surgery in order to prevent your new joint from getting infected. * You may get the antibiotics from the doctor performing the procedure or you may call our office at [phone] before and we will call in a prescription to the pharmacy of your choice. Things to Watch For: * Drainage from the incision site that occurs more than one week after your surgery. * Severely increased knee/leg pain or swelling. * Increased redness at the incision site. * Fever above 102 degrees Fahrenheit. * Unusual chest pain or shortness of breath. * Unusual pain or burning with urination. Call [facility] at [phone] with any of the above problems or if you have any questions about your medicines or recovery. FOLLOW UP VISIT: Make an appointment to see your doctor for approximately two weeks after surgery for a progress check and staple removal by calling the office at [phone]. Pending Studies at Discharge: No Stand-Alone Forms: My [facility], Smoking Cessation Medications and DC Order Prescriptions: Continued oxycodone 5 mg tablet 5 - 10 mg PO Q6 PRN (Reason: pain) Qty: 40 0RF Rx Instructions: Take as needed for pain ondansetron 4 mg tablet,disintegrating 4 mg PO Q8 PRN (Reason: nausea) Qty: 20 1RF Rx Instructions: Take as needed for nausea ketorolac 10 mg tablet 10 mg PO TID 5 Days Qty: 15 0RF Rx Instructions: Take 3 times per day with food for 5 days to lessen pain and swelling. sennosides [Senokot] 8.6 mg tablet 8.6 mg PO BID 14 Days Qty: 28 0RF Rx Instructions: Take two times a day to prevent/treat constipation acetaminophen [Tylenol Extra Strength] 500 mg tablet 1,000 mg PO TID 30 Days Qty: 180 0RF Rx Instructions: Take 3 times per day to lessen pain. aspirin [Sabina Low Dose Aspirin] 81 mg tablet,delayed release (DR/EC) 81 mg PO BID 45 Days Qty: 90 0RF Rx Instructions: Take to prevent blood clots. tamsulosin [Flomax] 0.4 mg capsule 0.4 mg PO DAILY Qty: 7 0RF Rx Instructions: Begin night BEFORE surgery to prevent urinary retention cefadroxil 500 mg capsule 500 mg PO BID 7 Days Qty: 14 0RF Rx Instructions: Take 1 cap twice a day to prevent infection metoprolol tartrate 25 mg tablet 25 mg PO BID Qty: 180 3RF mecobalamin (vitamin B12) 1,000 mcg tablet,chewable 1,000 mcg PO QAM docusate sodium [Colace] 100 mg capsule 100 mg PO BID losartan 50 mg tablet 50 mg PO QAM atorvastatin [Lipitor] 80 mg tablet 80 mg PO HS Discontinued aspirin [Sabina Low Dose Aspirin] 81 mg Tablet,Delayed Release (Dr/Ec) 81 mg PO HS Admission Data Admit Date/Time: 06/28/23 13:22 Attending Provider: Juan Gallego Admit Provider: Juan Gallego Primary Care Provider: Letitia Jordan Other Providers: [facility]
== END 2023-06-29 13:27 | disposition home health service (06) ==
LOC: PACUINP 08:59 → ASU 08:59 → 3W 17:06

== ENCOUNTER 2023-08-07 18:00 | Inpatient (IN) ==
[2023-08-07] MEDS ORDERED: fentaNYL citrate PF 100 MCG/2 ML VIAL IV STA (18:16)
--- NOTE | 2023-08-07 18:46 | Emergency Department Note ---
Impression & Plan Closed fracture of neck of right femur, Fall from standing ED Provider Note HISTORY OF PRESENT ILLNESS: Patient is an 83-year-old male presenting with right hip pain. Patient reports that he was sitting with an ice pack on his right knee after having a right knee replacement a few weeks ago. States that he stood up and tripped over the ice pack, and fell on the right side of his hip and buttock and struck his head. Reports immediate pain and deformity to the hip. Denies loss of consciousness. Tetanus is up-to-date. Denies anticoagulation use. He was unable to get up off the ground on his own and had to call 911. Denies any chest pain, shortness of breath or lightheadedness prior to the fall. Reports he just lost his footing. ROS: as above PHYSICAL EXAM: Constitutional: Patient appears in no acute distress. HENT: Head: Normocephalic. Abrasion to bridge of nose. Eyes: EOMI, PERRL Mouth/Throat: Mucous membranes moist. Neck: Trachea midline. Neck supple. Cardiovascular: RRR, No murmurs, rubs or gallops. Intact distal pulses. Pulmonary/Chest: No respiratory distress. Breath sounds clear and equal bilaterally. No wheezes or rales. No chest wall tenderness to palpation. Abdominal: Abdomen soft, no tenderness, rebound or guarding. Musculoskeletal: - RLE: Right leg is shortened and externally rotated. No open wounds. Patient has tenderness to palpation over the lateral proximal part of the femur and lateral hip. Unable to range the hip secondary to pain. Able to wiggle toes and plantarflex and dorsiflex at the ankle. Has a well-healing surgical incision overlying his anterior knee. Sensation intact to light touch throughout the nerve distributions of the leg. Intact DP and PT pulses. Skin: Warm and dry. No rash, erythema, pallor or cyanosis Psychiatric: Appropriate mood and affect for situation. Neurological: Alert and keenly responsive. CN II-XII grossly intact MDM: - Vitals signs showed hypertension. - History obtained via patient. Patient presents with right hip pain. Patient reports that he lost his footing when getting up from a seated position and tripped over an ice pack and fell to the ground, landing on his right hip and striking his face on the ground. Denies loss of consciousness. He is not on any anticoagulation. Tetanus is up-to-date. He was unable to get up off the ground secondary to pain in the right hip and he called 911. - Chronic conditions affecting care: CAD (s/p CABG); HTN; HLD - Differential diagnoses include, but are not limited to: Right hip fracture; right hip fracture; ACS; bony contusion - Order placed for continuous cardiac monitoring. At this time, monitor showed rate of 75 bpm with normal sinus rhythm, per my interpretation. - External medical records reviewed. EMS run sheet was reviewed. No medications were given prehospital. - EKG interpreted by myself showed normal sinus rhythm. Rate 74 bpm. QTc 481. No acute ischemic changes. Noted to have a right bundle branch block. - Laboratory workup interpreted by myself showed normal WBC; stable electrolytes; normal creatinine - X-ray of the pelvis with right hip views showed a right femoral neck fracture, per my interpretation. - Patient given 50 mcg IV fentanyl for pain control. - Discussed case with orthopedist fire protection engineering technician, Dr. Sosa. Recommends NPO after midnight and plan for assessment in AM and possible surgery in AM once cleared for surgery by medicine. - Discussion was had with patient care technician instructor about patient's case and need for admission - Hospitalist consulted for admission - Patient admitted to [facility]ist service for further evaluation and management. ASSESSMENT AND PLAN: Diagnosis: Right femoral neck fracture; fall from standing Plan: admit Past Med/Surg History Medical History Encounter for pre-operative examination Chondrocalcinosis of right knee History of COVID-19 History of prostate cancer History of non-ST elevation myocardial infarction (NSTEMI) Rotator cuff syndrome of left shoulder Coronary artery disease Neutropenia Right knee DJD Aortic atherosclerosis History of basal cell carcinoma Hypercholesterolemia Hypertension Impaired fasting glucose Seborrheic dermatitis Surgical History Status post left knee replacement History of prostate biopsy History of tooth extraction History of basal cell carcinoma excision History of bilateral cataract extraction History of cardiac cath History of left knee replacement S/P CABG x 3 History of tonsillectomy History of appendectomy History of vasectomy Family History Other Hypertension No family history of adverse response to anesthesia No family history of bleeding disorder Social History Smoking Status: Former smoker Tobacco Type: Pipe Age Started Using Tobacco: 18; Age Quit Using Tobacco: 68; Second Hand Exposure: No; Do You Dip or Chew Tobacco: No; Hx Alcohol Use: Yes Alcohol type: wine Hx Substance Use: No Preferred Language: Italian Communication Ability: Effective Hearing Ability: Hard of Hearing 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: No Beliefs That Will Affect Care: None marital status: Current Living Situation: Spouse current occupational status: employed 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 Feels Safe at Home: Yes Dental Care, Regularly: Yes Physical Activity Frequency: 3-4 Times per Week Assistive Devices: Walker Allergies Allergies Allergy/AdvReac Type Severity Reaction Status Date / Time Penicillins Allergy Intermediate Hives Verified 08/07/23 19:17 SHASHI Inhibitors AdvReac Mild Cough Verified 08/07/23 19:17 iodine AdvReac Mild Vomiting Verified 08/07/23 19:17 shellfish derived AdvReac Mild Vomiting Verified 08/07/23 19:17 Home Meds Home Medications Medication Instructions Recorded Confirmed mecobalamin (vitamin B12) 1,000 1,000 mcg PO QAM 10/19/22 08/07/23 mcg chewable tablet atorvastatin 80 mg tablet (Lipitor) 80 mg PO HS 05/23/23 08/07/23 losartan 50 mg tablet 50 mg PO DAILY 05/23/23 08/07/23 acetaminophen 650 mg 1,300 mg PO Q12H 08/07/23 08/07/23 tablet,extended release (Tylenol Arthritis Pain) aspirin 81 mg tablet,delayed 81 mg PO DAILY 08/07/23 08/07/23 release Previous Rx's Medication Instructions Recorded metoprolol tartrate 25 mg tablet 25 mg PO BID #180 tabs 10/19/22 ondansetron 4 mg disintegrating 4 mg PO Q8 PRN nausea #20 tabs 06/24/23 tablet Results & Data (ED) Vital Signs Vital Signs - 24 hr 08/07/23 18:16 08/07/23 18:16 Pulse Rate 78 Pulse Rate [Finger] 75 Respiratory Rate 18 18 Respiratory Effort / Characteristics Non-Labored Spontaneous Non-Labored Spontaneous Respiratory Depth Normal Normal Respiratory Pattern Regular Regular Blood Pressure 191/111 H Blood Pressure [Right Arm] 191/111 H Blood Pressure Mean 137 Blood Pressure Mean [Right Arm] 137 Blood Pressure Position Lying Blood Pressure Position [Right Arm] Lying Pulse Oximetry 94 94 Oxygen Delivery Method Room Air Room Air Sepsis Recent Fever Within 48 Hours No Sepsis New/Unexplained Change in Mental Status No Sepsis Action Taken by Nursing No Action Required Laboratory Data 08/07/23 18:56 08/07/23 18:56 Lab Results 08/07/23 Range/Units 18:56 WBC 7.16 (4.8-10.8) K/ul RBC 4.38 L (4.70-6.10) M/uL Hgb 13.5 L (14.0-18.0) g/dl Hct 42.4 (42.0-52.0) % MCV 96.8 (80.0-100.0) fL MCH 30.8 (25.0-34.0) pg MCHC 31.8 L (32.0-36.0) g/dL RDW Std Deviation 49.1 H (36.4-46.3) fL RDW Coeff of Gregory 13.7 (11.5-14.5) % Plt Count 304 (130-400) K/uL MPV 9.3 L (9.4-12.4) fL Immature Gran % (Auto) 0.3 % Neut % (Auto) 70.5 % Lymph % (Auto) 15.5 % [place] % (Auto) 9.8 % Eos % (Auto) 3.1 % Baso % (Auto) 0.8 % Neut # (Auto) 5.05 (1.40-6.50) K/uL Lymph # (Auto) 1.11 L (1.20-3.40) K/uL [place] # (Auto) 0.70 H (0.11-0.59) K/uL Eos # (Auto) 0.22 (0.00-0.50) K/uL Baso # (Auto) 0.06 (0.00-0.20) K/uL Immature Gran # (Auto) 0.02 (0.01-0.20) K/uL Sodium 142 (136-145) mmol/L Potassium 4.2 (3.5-5.1) mmol/L Chloride 107 (98-107) mmol/L Carbon Dioxide 29 (21-32) mmol/L Anion Gap 6 (3-11) BUN 21 (6-23) mg/dl Creatinine 0.71 (0.6-1.4) mg/dl Est Cr Clr Drug Dosing 82.2 ml/min Est GFR ( Amer) 99.2 ml/min Est GFR (Non-Af Amer) 85.6 ml/min BUN/Creatinine Ratio 29.6 H (10-20) Glucose 102 H (70-99(Fasting)) mg/dl Calcium 9.9 (8.6-10.3) mg/dl Total Bilirubin 0.4 (0.2-1.0) mg/dl AST 17 (13-39) U/L ALT 17 (7-52) U/L Alkaline Phosphatase 131 H (34-104) U/L Total Protein 7.3 (6.0-8.3) gm/dl Albumin 4.4 (3.4-5.0) gm/dl Globulin 2.9 (2.5-4.0) gm/dl Albumin/Globulin Ratio 1.5 (0.9-2) Administered Medications Discontinued Medications Fentanyl Citrate (Fentanyl Citrate Pf 100 Mcg/2 Ml Vial) 50 mcg IV NOW STA Stop: 08/07/23 18:17 Last Admin: 08/07/23 19:13 Dose: 50 mcg Documented By: LCD Imaging Data Radiologist's Impression: Hip X-Ray 08/07/23 18:16 XR hip RT min 2V CLINICAL HISTORY: fall; right hip pain COMPARISON: CT of the abdomen and pelvis July 17, 2020 FINDINGS: Brachytherapy seeds within the prostate are incidentally noted. Note is made of an acute comminuted displaced right femoral neck fracture. No fractures are identified within visualized portions of the pelvis. IMPRESSION: Acute comminuted displaced right femoral neck fracture. ACT 112: Negative or not required by law. Electronically signed by: Alexander Jordan M.D. 08/07/2023 6:45 PM Discharge Plan Visit Data Chief Complaint: Hip Pain Stated Complaint: FALL, HIP PAIN ED Provider: Rhiannon Jenkins Discharge Problem: Closed fracture of neck of right femur, Fall from standing Forms Stand Alone Forms: [employer] Prescriptions Prescriptions: No Action ondansetron 4 mg tablet,disintegrating 4 mg PO Q8 PRN (Reason: nausea) Qty: 20 1RF Rx Instructions: Take as needed for nausea metoprolol tartrate 25 mg tablet 25 mg PO BID Qty: 180 3RF mecobalamin (vitamin B12) 1,000 mcg tablet,chewable 1,000 mcg PO QAM aspirin [Aspir-Low] 81 mg Tablet,Delayed Release (Dr/Ec) 81 mg PO DAILY acetaminophen [Tylenol Arthritis Pain] 650 mg Tablet Extended Release 1,300 mg PO Q12H losartan 50 mg tablet 50 mg PO DAILY atorvastatin [Lipitor] 80 mg tablet 80 mg PO HS Referrals Referrals: Letitia Jordan MD [Primary Care Provider] -
--- NOTE | 2023-08-07 18:47 | XRay Report ---
XR hip RT min 2V CLINICAL HISTORY: fall; right hip pain COMPARISON: CT of the abdomen and pelvis July 17, 2020 FINDINGS: Brachytherapy seeds within the prostate are incidentally noted. Note is made of an acute c omminuted displaced right femoral neck fracture. No fractures are identified within visualized portio ns of the pelvis. IMPRESSION: Acute comminuted displaced right femoral neck fracture. ACT 112: Negative or not required by law. Electronically signed by: Alexander Jordan M.D. 08/07/2023 6:45 PM
[2023-08-07 19:09] LABS: Basophils # (auto) 0.06 K/uL (0.00-0.20); Basophils % (auto) 0.8 %; Eosinophils # (auto) 0.22 K/uL (0.00-0.50); Eosinophils % (auto) 3.1 %; Hematocrit (blood only) 42.4 % (42.0-52.0); Hemoglobin 13.5 g/dl (14.0-18.0); Immature Granulocytes # (auto) 0.02 K/uL (0.01-0.20); Immature Granulocytes % (auto) 0.3 %; Lymphocytes # (auto) 1.11 K/uL (1.20-3.40); Lymphocytes % (auto) 15.5 %; Mean Corpuscular Hemoglobin 30.8 pg (25.0-34.0); Mean Corpuscular Hgb Conc 31.8 g/dL (32.0-36.0); Mean Corpuscular Volume 96.8 fL (80.0-100.0); Mean Platelet Volume 9.3 fL (9.4-12.4); Monocytes % (auto) 9.8 %; Neutrophils # (auto) 5.05 K/uL (1.40-6.50); Neutrophils % (auto) 70.5 %; Platelet Count 304 K/uL (130-400); RDW Coefficient of Variation 13.7 % (11.5-14.5); RDW Standard Deviation 49.1 fL (36.4-46.3); Red Blood Count 4.38 M/uL (4.70-6.10); White Blood Count 7.16 K/ul (4.8-10.8)
[2023-08-07 19:27] LABS: Albumin Globulin Ratio 1.5 (0.9-2); Albumin Level 4.4 gm/dl (3.4-5.0); BUN Creatinine Ratio 29.6 (10-20); Bilirubin,Total 0.4 mg/dl (0.2-1.0); Calcium 9.9 mg/dl (8.6-10.3); Creatinine Clr Calc Pharmacy 82.2 ml/min; Est GFR (African American) 99.2 ml/min; Est GFR (Non-African American) 85.6 ml/min; Globulin 2.9 gm/dl (2.5-4.0); Potassium 4.2 mmol/L (3.5-5.1); Total Protein 7.3 gm/dl (6.0-8.3)
[2023-08-07 19:40] LABS: Partial Thromboplastin Ratio 0.9; Partial Thromboplastin Time 26 Seconds (21-31); Prothrombin Time 11.4 Seconds (9.0-12.0)
--- NOTE | 2023-08-07 20:36 | History & Physical Report ---
Date of Service August 07, 2023 Assessment & Plan (1) Closed fracture of neck of right femur: (2) Fall from standing: (3) Status post right knee replacement: (4) Status post left knee replacement: (5) History of prostate cancer: (6) Coronary artery disease: (7) Hypertension: (8) Hypercholesterolemia: Plan Closed right hip fracture/fall from standing/status post right TKA 06-28-2023-- N.p.o. after midnight Received fentanyl 50 mcg IV in the ED Takes acetaminophen 1300 mg p.o. every 12 hours at home Dilaudid 0.25 mg IV every 3 hours as needed for moderate pain Dilaudid 0.5 mg IV every 3 hours as needed for severe pain Geriatric hip fracture protocol Has been seen by Dr. Juan Gallego for recent right TKA, and who also performed left TKA about 5 years ago LR at 80 mL/h Zofran 4 mg IV every 6 hours as needed Famotidine 20 mg IV every 12 hours CAD/hypertension- Hold aspirin and losartan Increase metoprolol tartrate from 25 mg p.o. twice daily to 50 mg p.o. twice daily Hyperlipidemia- Continue atorvastatin History of Present Illness Chief Complaint: The patient reports that he was lifting up some [employer] decorations, his ice pack on his right total knee arthroplasty slipped down, he tripped, landed on his right hip, developed immediate pain of his right hip. Primary Care Provider: Letitia Jordan MD The patient is an 83-year-old male with a past medical history including left total knee arthroplasty by Dr. Gallego 5 years ago, right total knee arthroplasty by Dr. Gallego 06/28/2023, vit B12 deficiency, prostate cancer, history of NSTEMI, CAD, hypercholesterolemia, hypertension, impaired fasting glucose, tendinitis of biceps, right rotator cuff, right ischial bursitis and vitamin D deficiency. He reports that he was recovering well from his right total knee arthroplasty, but as he is moving around moving [employer]ush decorations this evening, the ice pack that is using on his right knee slid down, he ended up falling to the ground onto his right hip, did sustain severe right hip pain. In the ED, x-rays of right hip showed an acute comminuted displaced right femoral neck fracture, for which he was referred for evaluation for admission Allergies Allergy/AdvReac Type Severity Reaction Status Date / Time Penicillins Allergy Intermediate Hives Verified 08/07/23 19:17 SHASHI Inhibitors AdvReac Mild Cough Verified 08/07/23 19:17 iodine AdvReac Mild Vomiting Verified 08/07/23 19:17 shellfish derived AdvReac Mild Vomiting Verified 08/07/23 19:17 Home Medications Medication Instructions Recorded Confirmed Type mecobalamin (vitamin B12) 1,000 1,000 mcg PO QAM 10/19/22 08/07/23 History mcg chewable tablet metoprolol tartrate 25 mg tablet 25 mg PO BID #180 tabs 10/19/22 08/07/23 Rx atorvastatin 80 mg tablet (Lipitor) 80 mg PO HS 05/23/23 08/07/23 History losartan 50 mg tablet 50 mg PO DAILY 05/23/23 08/07/23 History ondansetron 4 mg disintegrating 4 mg PO Q8 PRN nausea #20 tabs 06/24/23 08/07/23 Rx tablet acetaminophen 650 mg 1,300 mg PO Q12H 08/07/23 08/07/23 History tablet,extended release (Tylenol Arthritis Pain) aspirin 81 mg tablet,delayed 81 mg PO DAILY 08/07/23 08/07/23 History release Past Med/Surg History Medical History Encounter for pre-operative examination Chondrocalcinosis of right knee History of COVID-19 History of prostate cancer History of non-ST elevation myocardial infarction (NSTEMI) Rotator cuff syndrome of left shoulder Coronary artery disease Neutropenia Right knee DJD Aortic atherosclerosis History of basal cell carcinoma Hypercholesterolemia Hypertension Impaired fasting glucose Seborrheic dermatitis Surgical History Status post left knee replacement History of prostate biopsy History of tooth extraction History of basal cell carcinoma excision History of bilateral cataract extraction History of cardiac cath History of left knee replacement S/P CABG x 3 History of tonsillectomy History of appendectomy History of vasectomy Family History Other Hypertension No family history of adverse response to anesthesia No family history of bleeding disorder Social History Smoking Status: Former smoker Tobacco Type: Pipe Age Started Using Tobacco: 18; Age Quit Using Tobacco: 68; Second Hand Exposure: No; Do You Dip or Chew Tobacco: No; Hx Alcohol Use: Yes Alcohol type: wine Hx Substance Use: No Preferred Language: Indonesian Communication Ability: Effective Hearing Ability: Hard of Hearing 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 Beliefs That Will Affect Care: None marital status: Current Living Situation: Spouse current occupational status: employed 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 Feels Safe at Home: Yes Dental Care, Regularly: Yes Physical Activity Frequency: 3-4 Times per Week Assistive Devices: Walker Review of Systems Review of Systems: The patient denies chest pain, palpitations, shortness of breath, dyspnea on exertion, cough, lower extremity swelling, sore throat, fevers, chills, sweats, weight change, fatigue, nausea, vomiting, diarrhea , constipation, abdominal pain, blood in urine or stool, dysuria, urinary frequency or urgency, lightheadedness, dizziness, headache, memory loss, loss of consciousness, rash, abnormal bruising or bleeding, focal or generalized weakness, numbness or tingling in arms or left leg, generalized arthralgias or myalgias, back or neck pain, or night sweats. The review of systems is otherwise negative other than for that already noted above, and at least 10 systems have been reviewed. Physical Exam Physical Exam: The patient is awake, alert and oriented 3, well developed and well nourished, normocephalic and atraumatic, lying in bed and in mild acute distress secondary to right hip pain HEENT--PERRL, EOMI, mucous membranes and oropharynx normal. Neck--supple. No JVD. No bruits. Thyroid normal, trachea midline, no adenopathy. Heart--normal S1 and S2. No murmurs, rubs or gallops. Lungs--clear bilaterally, no respiratory distress, no accessory muscle use. Abdomen--normal bowel sounds and soft. Nontender. Nondistended Extremities--no cyanosis or clubbing. No edema. There are good distal pulses b/l. Dermatologic--normal skin turgor, normal color, no abnormal lymph nodes, no rash. Neurologic--cranial nerves II through XII grossly intact. Rheumatologic--limited exam due to pain Psychiatric--normal affect. Results & Data Results & Data Vital Signs (Past 12 Hours) Vital Signs Pulse Pulse Resp BP BP Pulse Ox O2 Del Method 01/07/24 18:16 75 18 191/111 H 94 Room Air 08/07/23 18:16 78 18 191/111 H 94 Room Air Laboratory Results Laboratory Results WBC 7.16 K/ul (4.8-10.8) 08/07/23 18:56 RBC 4.38 M/uL (4.70-6.10) L 08/07/23 18:56 Hgb 13.5 g/dl (14.0-18.0) L 08/07/23 18:56 Hct 42.4 % (42.0-52.0) 08/07/23 18:56 MCV 96.8 fL (80.0-100.0) 08/07/23 18:56 MCH 30.8 pg (25.0-34.0) 08/07/23 18:56 MCHC 31.8 g/dL (32.0-36.0) L 08/07/23 18:56 RDW Std Deviation 49.1 fL (36.4-46.3) H 08/07/23 18:56 RDW Coeff of Gregory 13.7 % (11.5-14.5) 08/07/23 18:56 Plt Count 304 K/uL (130-400) 08/07/23 18:56 MPV 9.3 fL (9.4-12.4) L 08/07/23 18:56 Immature Gran % (Auto) 0.3 % 08/07/23 18:56 Neut % (Auto) 70.5 % 08/07/23 18:56 Lymph % (Auto) 15.5 % 08/07/23 18:56 [place] % (Auto) 9.8 % 08/07/23 18:56 Eos % (Auto) 3.1 % 08/07/23 18:56 Baso % (Auto) 0.8 % 08/07/23 18:56 Neut # (Auto) 5.05 K/uL (1.40-6.50) 08/07/23 18:56 Lymph # (Auto) 1.11 K/uL (1.20-3.40) L 08/07/23 18:56 [place] # (Auto) 0.70 K/uL (0.11-0.59) H 08/07/23 18:56 Eos # (Auto) 0.22 K/uL (0.00-0.50) 08/07/23 18:56 Baso # (Auto) 0.06 K/uL (0.00-0.20) 08/07/23 18:56 Immature Gran # (Auto) 0.02 K/uL (0.01-0.20) 08/07/23 18:56 PT 11.4 Seconds (9.0-12.0) 08/07/23 18:56 INR 1.0 (0.9-1.1) 08/07/23 18:56 APTT 26 Seconds (21-31) 08/07/23 18:56 PTT Ratio 0.9 08/07/23 18:56 Sodium 142 mmol/L (136-145) 08/07/23 18:56 Potassium 4.2 mmol/L (3.5-5.1) 08/07/23 18:56 Chloride 107 mmol/L (98-107) 08/07/23 18:56 Carbon Dioxide 29 mmol/L (21-32) 08/07/23 18:56 Anion Gap 6 (3-11) 08/07/23 18:56 BUN 21 mg/dl (6-23) 08/07/23 18:56 Creatinine 0.71 mg/dl (0.6-1.4) 08/07/23 18:56 Est Cr Clr Drug Dosing 82.2 ml/min 08/07/23 18:56 Est GFR ( Amer) 99.2 ml/min 08/07/23 18:56 Est GFR (Non-Af Amer) 85.6 ml/min 08/07/23 18:56 BUN/Creatinine Ratio 29.6 (10-20) H 08/07/23 18:56 Glucose 102 mg/dl (70-99(Fasting)) H 08/07/23 18:56 Calcium 9.9 mg/dl (8.6-10.3) 08/07/23 18:56 Total Bilirubin 0.4 mg/dl (0.2-1.0) 08/07/23 18:56 AST 17 U/L (13-39) 08/07/23 18:56 ALT 17 U/L (7-52) 08/07/23 18:56 Alkaline Phosphatase 131 U/L (34-104) H 08/07/23 18:56 Total Protein 7.3 gm/dl (6.0-8.3) 08/07/23 18:56 Albumin 4.4 gm/dl (3.4-5.0) 08/07/23 18:56 Globulin 2.9 gm/dl (2.5-4.0) 08/07/23 18:56 Albumin/Globulin Ratio 1.5 (0.9-2) 08/07/23 18:56 Impressions Hip X-Ray 08/07/23 18:16 XR hip RT min 2V CLINICAL HISTORY: fall; right hip pain COMPARISON: CT of the abdomen and pelvis July 17, 2020 FINDINGS: Brachytherapy seeds within the prostate are incidentally noted. Note is made of an acute comminuted displaced right femoral neck fracture. No fractures are identified within visualized portions of the pelvis. IMPRESSION: Acute comminuted displaced right femoral neck fracture. ACT 112: Negative or not required by law. Electronically signed by: Alexander Jordan M.D. 08/07/2023 6:45 PM Code Status & VTE Plan Code Status Full code VTE Prophylaxis Plan VTE Prophylaxis will be ordered: Yes PG Care Time/CCT Total # of Minutes Spent Total Time Spent with Patient: Total time spent is greater than 50% in coordination of care (as documented) at patient's floor/unit and/or counseling patient: Coding Level of Care Code 74497 INT INP/OBS CARE 3/75MIN Diagnoses Closed fracture of neck of right femur S72.001A Fall from standing W19.XXXA Status post right knee replacement Z96.651 Status post left knee replacement Z96.652 History of prostate cancer Z85.46 Coronary artery disease I25.10 Hypertension I10 Hypercholesterolemia E78.00
[2023-08-07] MEDS ORDERED: HYDROmorphone INJ 0.5 MG/0.5 ML SYR IV STA (21:16)
[2023-08-07 21:19] LABS: Appearance Urine Clear (Clear); Bilirubin Urine Negative (Negative); Blood Urine Negative (Negative); Color Urine Yellow; Glucose Urine UA Negative (Negative); Ketones Urine Negative (Negative); Leukocyte Esterase Urine Negative (Negative); Nitrite Urine Negative (Negative); Protein Urine Negative (Negative); Specific Gravity Urine 1.018 (1.000-1.030); Urobilinogen Urine Negative (Negative)
[2023-08-07] MEDS ORDERED: ONDANSETRON INJ 2 MG/ML 2 ML VIAL IV PRN (21:49)
[2023-08-07] MEDS ORDERED: NALOXONE HCL 0.4 MG/1 ML VIAL/CARP IV PRN (21:49)
[2023-08-07] MEDS ORDERED: MAGNESIUM HYDROXIDE SUSP 30 ML UDC PO PRN (21:49)
[2023-08-07] MEDS ORDERED: bisacodyL 10 MG SUPP PR PRN (21:49)
[2023-08-07] MEDS ORDERED: HYDROmorphone INJ 0.5 MG/0.5 ML SYR IV PRN ×2 (21:49)
[2023-08-07] MEDS: ACETAMINOPHEN 325 MG TAB PO SCH (22:44)
[2023-08-07] MEDS: ATORVASTATIN 40 MG TAB PO SCH (22:44)
[2023-08-07] MEDS: METOPROLOL TARTRATE 50 MG TAB PO SCH (22:44)
[2023-08-07] MEDS: LACTATED RINGER'S 1,000 ML IV SCH (22:48)
[2023-08-08 04:09] LABS: Albumin Level 3.5 gm/dl (3.4-5.0); BUN Creatinine Ratio 27.4 (10-20); Blood Urea Nitrogen 17 mg/dl (6-23); Calcium 8.8 mg/dl (8.6-10.3); Carbon Dioxide 26 mmol/L (21-32); Chloride 109 mmol/L (98-107); Creatinine Clr Calc Pharmacy 94.1 ml/min; Est GFR (African American) 104.8 ml/min; Est GFR (Non-African American) 90.5 ml/min; Glucose 94 mg/dl (70-99(Fasting))
[2023-08-08 04:17] LABS: INR 1.1 (0.9-1.1); Partial Thromboplastin Ratio 0.8; Partial Thromboplastin Time 23 Seconds (21-31); Prothrombin Time 11.9 Seconds (9.0-12.0)
[2023-08-08 04:26] LABS: Basophils # (auto) 0.04 K/uL (0.00-0.20); Basophils % (auto) 0.5 %; Eosinophils # (auto) 0.24 K/uL (0.00-0.50); Eosinophils % (auto) 2.9 %; Hematocrit (blood only) 37.7 % (42.0-52.0); Hemoglobin 12.3 g/dl (14.0-18.0); Immature Granulocytes # (auto) 0.04 K/uL (0.01-0.20); Immature Granulocytes % (auto) 0.5 %; Lymphocytes % (auto) 12.3 %; Mean Corpuscular Hemoglobin 31.5 pg (25.0-34.0); Mean Corpuscular Hgb Conc 32.6 g/dL (32.0-36.0); Mean Corpuscular Volume 96.7 fL (80.0-100.0); Mean Platelet Volume 9.8 fL (9.4-12.4); Monocytes # (auto) 0.83 K/uL (0.11-0.59); Monocytes % (auto) 10.2 %; Neutrophils % (auto) 73.6 %; Platelet Count 251 K/uL (130-400); RDW Coefficient of Variation 13.8 % (11.5-14.5); RDW Standard Deviation 49.1 fL (36.4-46.3); White Blood Count 8.15 K/ul (4.8-10.8)
[2023-08-08 05:26] LABS: Magnesium 1.9 mg/dl (1.7-2.4); Potassium 3.8 mmol/L (3.5-5.1)
[2023-08-08] MEDS ORDERED: VANCOMYCIN HCL 1,250 MG in SODIUM CHLORIDE 0.9% 500 ML IV SCH (06:00)
[2023-08-08] MEDS ORDERED: VANCOMYCIN HCL 1,250 MG in SODIUM CHLORIDE 0.9% 250 ML IV SCH (06:00)
--- NOTE | 2023-08-08 07:35 | Hospitalist Progress Note ---
Date of Service August 08, 2023 Assessment & Plan (1) Closed fracture of neck of right femur: Plan: Closed right hip fracture/fall from standing/status post right TKA 06-28-2023-- N.p.o. after midnight Received fentanyl 50 mcg IV in the ED Takes acetaminophen 1300 mg p.o. every 12 hours at home Dilaudid 0.25 mg IV every 3 hours as needed for moderate pain Dilaudid 0.5 mg IV every 3 hours as needed for severe pain Geriatric hip fracture protocol Has been seen by Dr. Juan Gallego for recent right TKA, and who also performed left TKA about 5 years ago LR at 80 mL/h Zofran 4 mg IV every 6 hours as needed Famotidine 20 mg IV every 12 hours (2) Coronary artery disease: Plan: CAD/hypertension- Hold aspirin and losartan Increase metoprolol tartrate from 25 mg p.o. twice daily to 50 mg p.o. twice d aily (3) History of prostate cancer: Plan Hyperlipidemia- Continue atorvastatin Admission and Anticipated Discharge Date Admission Date: August 07, 2023 Results & Data Results & Data Vital Signs (Past 12 Hours) Vital Signs Pulse Pulse Resp BP Pulse Ox O2 Del Method 08/08/23 04:16 55 L 16 160/87 H 97 Room Air 08/08/23 00:00 64 16 156/100 H 95 Room Air 08/07/23 23:20 75 08/07/23 22:43 69 18 176/108 H 94 Room Air PG Care Time/CCT Total # of Minutes Spent Total Time Spent with Patient: Total time spent is greater than 50% in coordination of care (as documented) at patient's floor/unit and/or counseling patient: Coding Diagnoses Closed fracture of neck of right femur S72.001A Coronary artery disease I25.10 History of prostate cancer Z85.46
--- NOTE | 2023-08-08 08:36 | Electrocardiogram Report ---
Test Reason : Blood Pressure : / mmHG Vent. Rate : 074 BPM Atrial Rate : 074 BPM P-R Int : 186 ms QRS Dur : 118 ms QT Int : 434 ms P-R-T Axes : 063 014 028 degrees QTc Int : 481 ms Sinus rhythm with occasional Premature ventricular complexes Right bundle branch block Abnormal ECG When compared with ECG of 01-JUN-2023 09:38, Premature ventricular complexes are now Present QRS duration has decreased Confirmed by Josue Ring ([id number]) on 08/08/2023 8:35:50 AM Referred By: REFERRED SELF Confirmed By:Josue Ring
[2023-08-08] MEDS: ACETAMINOPHEN 325 MG TAB PO SCH ×2 (09:48→19:53)
[2023-08-08] MEDS: CYANOCOBALAMIN (B-12) 500 MCG TABLET PO SCH (09:49)
[2023-08-08] MEDS: METOPROLOL TARTRATE 50 MG TAB PO SCH ×2 (09:49→19:52)
--- NOTE | 2023-08-08 10:19 | Hospitalist Progress Note ---
Date of Service August 08, 2023 Assessment & Plan (1) Closed fracture of neck of right femur: Plan: Closed right hip fracture/fall from standing/status post right TKA 06-28-2023-- OR booked with Dr. Juan Gallego for 08/09/2023 at 07:00am AHA diet ordered for today, then n.p.o. at midnight At patient's request, will switch from Dilaudid IV to oxycodone 5 mg p.o. q6h as needed for moderate to severe pain (as patient reports he did well on oxycodone during his last surgery, and would like to avoid IV pain medications) Continue acetaminophen 1300 mg q12h Geriatric hip fracture protocol Has been seen by Dr. Juan Gallego for recent right TKA, and who also performed left TKA about 5 years ago Continue IV fluid resuscitation with LR at 80mL/h Zofran 4 mg IV every 6 hours as needed Famotidine 20 mg IV every 12 hours (2) Coronary artery disease: Plan: CAD/hypertension- Hold aspirin and losartan Increased metoprolol tartrate from 25 mg p.o. twice daily to 50 mg p.o. twice daily EKG on arrival showed sinus rhythm with occasional PVCs at 74 bpm; QTc 481 S/p CABG on January 16, 2021 No stents noted; aspirin as prophylaxis, okay to hold (3) History of prostate cancer: Admission and Anticipated Discharge Date Admission Date: August 07, 2023 Subjective Patient currently rates his right hip pain as a 7/10 without movement, and a 10/10 with movement Pain radiates down the back of his right leg; no radiation up back Discussed plan with patient and patient's to go to the OR tomorrow Review of Systems Review of Systems: See HPI above Physical Exam Physical Exam: General: no acute distress; pleasant affect; non-toxic appearing; well- nourished; cooperative HEENT: Superficial abrasion on the bridge of the nose; no scleral icterus; PERRLA w/ EOMs intact; moist mucus membrane; vision and hearing grossly intact Neck: supple; no lymphadenopathy; trachea midline Skin: warm, dry without signs of tenting; no cyanosis; no rashes or erythema noted CV: chest wall NTP; RRR; S1/S2 normal; no murmurs/rubs/gallops; pulses intact and symmetric at radial, DP, and PT; of note, pulses in the right foot are neurovascularly intact Lungs: no acute respiratory distress; symmetrical chest wall expansion; clear breath sounds across all lung jara w/o adventitious sounds; no wheezing ABD: Soft, NTP; BS present; no rebound/guarding; no distention MSK: no tics or fasciculations; no edema noted in the LEs b/l (teds in place); patient demonstrates ability to wiggle toes bilaterally Neuro: A&Ox3; normal mood and affect; fluent speech; no focal deficits; sensation intact in the LEs bilaterally assessed via light touch at the toes Results & Data Results & Data Vital Signs (Past 12 Hours) Vital Signs Pulse Pulse Resp BP Pulse Ox O2 Del Method 08/08/23 09:51 78 18 182/88 H 96 Room Air 08/08/23 08:07 69 08/08/23 04:16 55 L 16 160/87 H 97 Room Air 08/08/23 00:00 64 16 156/100 H 95 Room Air 08/07/23 23:20 75 08/07/23 22:43 69 18 176/108 H 94 Room Air Laboratory Results Abnormal lab results 08/07/23 08/08/23 Range/Units 18:56 03:35 RBC 4.38 L 3.90 L (4.70-6.10) M/uL Hgb 13.5 L 12.3 L (14.0-18.0) g/dl Hct 37.7 L (42.0-52.0) % MCHC 31.8 L (32.0-36.0) g/dL RDW Std Deviation 49.1 H 49.1 H (36.4-46.3) fL MPV 9.3 L (9.4-12.4) fL Lymph # (Auto) 1.11 L 1.00 L (1.20-3.40) K/uL [place] # (Auto) 0.70 H 0.83 H (0.11-0.59) K/uL Chloride 109 H (98-107) mmol/L BUN/Creatinine Ratio 29.6 H 27.4 H (10-20) Glucose 102 H (70-99(Fasting)) mg/dl Alkaline Phosphatase 131 H (34-104) U/L Diagnostic Findings XR hip RT min 2V CLINICAL HISTORY: fall; right hip pain COMPARISON: CT of the abdomen and pelvis July 17, 2020 FINDINGS: Brachytherapy seeds within the prostate are incidentally noted. Note is made of an acute comminuted displaced right femoral neck fracture. No fractures are identified within visualized portions of the pelvis. IMPRESSION: Acute comminuted displaced right femoral neck fracture. ACT 112: Negative or not required by law. Electronically signed by: Alexander Jordan M.D. 08/07/2023 6:45 PM PG Care Time/CCT Total # of Minutes Spent Total Time Spent with Patient: Total time spent is greater than 50% in coordination of care (as documented) at patient's floor/unit and/or counseling patient: Coding [place] [address] SUB INP/OBS CARE 08/25MIN Patient Type Established History Comprehensive Exam Comprehensive Medical Decision Making Low Complexity Diagnoses Closed fracture of neck of right femur S72.001A Coronary artery disease I25.10 History of prostate cancer Z85.46
--- NOTE | 2023-08-08 11:50 | Orthopedic Consultation ---
Date of Service August 08, 2023 Assessment & Plan (1) Closed fracture of neck of right femur: I had a long detailed discussion today with the patient about his right hip pathology with ample amount of time for the patient to ask any questions or state any concerns. All questions and concerns for answered to the patient's satisfaction. I did discuss with him that his right femoral neck fracture will require surgical intervention. I discussed the pros, risks, and alternatives to a right bipolar hemiarthroplasty in great detail with ample amount of time for the patient to ask any questions or state any concerns. All questions and concerns were answered to the patient's satisfaction and he wishes to proceed with surgical intervention. Dr. Gallego already placed the patient on the surgical board for tomorrow morning. He may have a diet tonight. He will be n.p.o. after midnight tonight. Continue current analgesics regimen per primary. Medical management per primary. Will proceed with surgical intervention tomorrow. History of Present Illness Reason for Consultation: . Right femoral neck fracture Requesting Physician: . Attending Physician: Javon Deleon MD . Patient is an 83-year-old male who is known to [facility] due to being status post right total knee arthroplasty by Dr. Gallego on 06/28/2023. We were consulted by the hospitalist service due to the patient sustained a right femoral neck fracture. He states that he was moving around [place] yesterday whenever the ice pack that he had on his right knee caused him to trip and fall over and landed on his right hip. He had immediate onset of pain and could not move his right lower extremity. He was transferred to the emergency department where an x-ray was completed which found a comminuted displaced femoral neck fracture to the right femur. He was started on pain analgesics with a consult for orthopedics. He notes that he is in okay pain control today. He notes that he has severe discomfort anytime he tries to move the right lower extremity. He denies any other concerns today. He was still taking the aspirin for DVT prophylaxis. Last dose was yesterday. Allergies Allergy/AdvReac Type Severity Reaction Status Date / Time Penicillins Allergy Intermediate Hives Verified 08/07/23 19:17 SHASHI Inhibitors AdvReac Mild Cough Verified 08/07/23 19:17 iodine AdvReac Mild Vomiting Verified 08/07/23 19:17 shellfish derived AdvReac Mild Vomiting Verified 08/07/23 19:17 Home Medications Medication Instructions Recorded Confirmed Type mecobalamin (vitamin B12) 1,000 1,000 mcg PO QAM 10/19/22 08/07/23 History mcg chewable tablet metoprolol tartrate 25 mg tablet 25 mg PO BID #180 tabs 10/19/22 08/07/23 Rx atorvastatin 80 mg tablet (Lipitor) 80 mg PO HS 05/23/23 08/07/23 History losartan 50 mg tablet 50 mg PO DAILY 05/23/23 08/07/23 History ondansetron 4 mg disintegrating 4 mg PO Q8 PRN nausea #20 tabs 06/24/23 08/07/23 Rx tablet acetaminophen 650 mg 1,300 mg PO Q12H 08/07/23 08/07/23 History tablet,extended release (Tylenol Arthritis Pain) aspirin 81 mg tablet,delayed 81 mg PO DAILY 08/07/23 08/07/23 History release Past Med/Surg History Medical History Encounter for pre-operative examination Chondrocalcinosis of right knee History of COVID-19 History of prostate cancer History of non-ST elevation myocardial infarction (NSTEMI) Rotator cuff syndrome of left shoulder Coronary artery disease Neutropenia Right knee DJD Aortic atherosclerosis History of basal cell carcinoma Hypercholesterolemia Hypertension Impaired fasting glucose Seborrheic dermatitis Surgical History Status post left knee replacement History of prostate biopsy History of tooth extraction History of basal cell carcinoma excision History of bilateral cataract extraction History of cardiac cath History of left knee replacement S/P CABG x 3 History of tonsillectomy History of appendectomy History of vasectomy Family History Other Hypertension No family history of adverse response to anesthesia No family history of bleeding disorder Social History Smoking Status: Never smoker Tobacco Type: Pipe Age Started Using Tobacco: 18; Age Quit Using Tobacco: 68; Second Hand Exposure: No; Do You Dip or Chew Tobacco: No; Hx Alcohol Use: Yes Alcohol type: wine Hx Substance Use: No Preferred Language: Gambian Communication Ability: Effective Hearing Ability: Hard of Hearing Client Consultant Required: No Beliefs That Will Affect Care: None marital status: Current Living Situation: Spouse current occupational status: employed 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 Feels Safe at Home: Yes Dental Care, Regularly: Yes Physical Activity Frequency: 3-4 Times per Week Assistive Devices: Walker Review of Systems All systems reviewed & are unremarkable except as noted in HPI & below. Physical Exam . The patient is awake, alert and oriented 3, well developed and well nourished, normocephalic and atraumatic, lying in bed and in mild acute distress secondary to right hip pain HEENT--PERRL, EOMI, mucous membranes and oropharynx normal. Neck--supple. No JVD. No bruits. Thyroid normal, trachea midline, no adenopathy. Heart--normal S1 and S2. No murmurs, rubs or gallops. Lungs--clear bilaterally, no respiratory distress, no accessory muscle use. Abdomen--normal bowel sounds and soft. Nontender. Nondistended Dermatologic--normal skin turgor, normal color, no abnormal lymph nodes, no rash. Neurologic--cranial nerves II through XII grossly intact. Rheumatologic--limited exam due to pain Psychiatric--normal affect. Musculoskeletal On physical examination of the right hip, his leg length is shortened and externally rotated. No erythema, ecchymosis, edema, or other obvious deformities. He has discomfort diffusely throughout the right hip joint. Very mild tenderness to palpation throughout the right hip. Very limited range of motion at the hip secondary to discomfort. He has active range of motion at the right knee, ankle, and all 5 toes. Intact plantarflexion dorsiflexion. +2 DP and PT pulses. Less than 2-second capillary refill. Normal sensation. Neurovascular intact. Results & Data Results & Data Laboratory Results . Abnormal lab results 08/07/23 08/08/23 Range/Units 18:56 03:35 RBC 4.38 L 3.90 L (4.70-6.10) M/uL Hgb 13.5 L 12.3 L (14.0-18.0) g/dl Hct 37.7 L (42.0-52.0) % MCHC 31.8 L (32.0-36.0) g/dL RDW Std Deviation 49.1 H 49.1 H (36.4-46.3) fL MPV 9.3 L (9.4-12.4) fL Lymph # (Auto) 1.11 L 1.00 L (1.20-3.40) K/uL [place] # (Auto) 0.70 H 0.83 H (0.11-0.59) K/uL Chloride 109 H (98-107) mmol/L BUN/Creatinine Ratio 29.6 H 27.4 H (10-20) Glucose 102 H (70-99(Fasting)) mg/dl Alkaline Phosphatase 131 H (34-104) U/L Diagnostic Findings . Hip X-Ray 08/07/23 18:16 XR hip RT min 2V CLINICAL HISTORY: fall; right hip pain COMPARISON: CT of the abdomen and pelvis July 17, 2020 FINDINGS: Brachytherapy seeds within the prostate are incidentally noted. Note is made of an acute comminuted displaced right femoral neck fracture. No fractures are identified within visualized portions of the pelvis. IMPRESSION: Acute comminuted displaced right femoral neck fracture. ACT 112: Negative or not required by law. Electronically signed by: Alexander Jordan M.D. 08/07/2023 6:45 PM PG Care Time/CCT Total # of Minutes Spent Total Time Spent with Patient: Total time spent is greater than 50% in coordination of care (as documented) at patient's floor/unit and/or counseling patient: Coding Level of Care Code 35750 IN/OBS CONSULT LVL 3,45M Diagnoses Closed fracture of neck of right femur, initial encounter S72.001A Encounter type: initial encounter (1) Closed fracture of neck of right femur Encounter type: initial encounter Qualified Code(s): S72.001A - Fracture of unspecified part of neck of right femur, initial encounter for closed fracture
[2023-08-08] MEDS: FAMOTIDINE 20 MG in SYRINGE 3 ML IV SCH ×2 (12:25→19:54)
[2023-08-08] MEDS: LACTATED RINGER'S 1,000 ML IV SCH ×2 (12:25→23:26)
[2023-08-08] MEDS ORDERED: oxyCODONE HCL IR 5 MG TAB (IMMEDIATE RELEASE) PO PRN (12:34)
--- NOTE | 2023-08-08 18:38 | Communication Note ---
Date of Service: August 08, 2023 Called by nursing that feels patient may not be quite acting himself. He did fall and banging his head on the day of admission but also day prior. CT scan head Noncon is ordered. Did evaluate the patient he was current of jokester with his replies but he is oriented to place he has no focal neurological deficits no facial asymmetry Pending CT scan head this [place] the
[2023-08-08] MEDS: ATORVASTATIN 40 MG TAB PO SCH (19:53)
--- NOTE | 2023-08-08 20:09 | CT Scan Report ---
Exam(s): CT HEAD Without Contrast EXAM: CT Head Without Intravenous Contrast CLINICAL HISTORY: fall at home stuck head acting confused. TECHNIQUE: Axial computed tomography images of the head/brain without intravenous contrast. Automated exposure control was utilized for the study. A dose lowering technique was utilized adhering to the principles of ALARA. COMPARISON: CT head without contrast dated 07/17/2020 FINDINGS: Brain: Intracranial hemorrhage. No significant mass effect. No evidence for cortical infarct. Periventricular deep white matter hypodense changes are stable. Stable small area of encephalomalacia involving the posterior lateral right temporal region. Mild dominance of the cerebral sulci and sylvian fissures are noted and are similar to the previous examination. Ventricles: Unremarkable. No ventriculomegaly. Bones/joints: Unremarkable. No acute fracture. Soft tissues: No significant overlying acute traumatic soft tissue abnormality. No radiopaque foreign body. Sinuses: Unremarkable as visualized. No acute sinusitis. Mastoid air cells: Unremarkable as visualized. No mastoid effusion. IMPRESSION: No acute intracranial process or significant alteration from the previous examination. Electronically signed by: Chetan Arceo MD 08/08/23 20:07 PM
[2023-08-09] MEDS ORDERED: MELATONIN 3 MG TAB PO PRN (02:45)
[2023-08-09] MEDS ORDERED: BUPIVACAINE 0.5 % 5 MG/1 ML PF 10ML VIAL ONE (06:29)
[2023-08-09] MEDS ORDERED: VANCOMYCIN HCL 1,250 MG in SODIUM CHLORIDE 0.9% 250 ML IV ONE ×2 (06:30→18:00)
--- NOTE | 2023-08-09 06:40 | Anesthesiology Consultation ---
Date of Service August 09, 2023 Assessment & Plan (1) Encounter for pre-operative examination: Chart Review Chart Review: Acceptable Risk for Surgery and Patient NOT seen in Pre Admission Testing Consults Requested none ASA ASA3 Proposed Anesthesia Anesthesia Type: General Additional Notes Head CT negative, patient confused and disoriented, consent obtained by over phone witnessed by nursing. Due to disinhibition and difficulty understanding directions will proceed with GA and defer spinal anesthesia. History Surgery Operation Date: 08/09/23 07:00 Proposed Procedures p Right Total Hip Arthroplasty - Juan Gallego MD Height/Weight Height: 5 ft 9 in Weight: 84.9 kg Allergies Allergy/AdvReac Type Severity Reaction Status Date / Time Penicillins Allergy Intermediate Hives Verified 08/07/23 19:17 SHASHI Inhibitors AdvReac Mild Cough Verified 08/07/23 19:17 iodine AdvReac Mild Vomiting Verified 08/07/23 19:17 shellfish derived AdvReac Mild Vomiting Verified 08/07/23 19:17 Medications Home Medications Medication Instructions Recorded Confirmed Last Taken mecobalamin (vitamin B12) 1,000 1,000 mcg PO QAM 10/19/22 08/07/23 06/27/23 08:00 mcg chewable tablet metoprolol tartrate 25 mg tablet 25 mg PO BID #180 tabs 10/19/22 08/07/23 06/27/23 08:00 atorvastatin 80 mg tablet (Lipitor) 80 mg PO HS 05/23/23 08/07/23 06/26/23 20:00 losartan 50 mg tablet 50 mg PO DAILY 05/23/23 08/07/23 06/27/23 08:00 ondansetron 4 mg disintegrating 4 mg PO Q8 PRN nausea #20 tabs 06/24/23 08/07/23 Unknown tablet acetaminophen 650 mg 1,300 mg PO Q12H 08/07/23 08/07/23 Unknown tablet,extended release (Tylenol Arthritis Pain) aspirin 81 mg tablet,delayed 81 mg PO DAILY 08/07/23 08/07/23 Unknown release Active Medications Generic Name Dose Route Start Last Admin Trade Name Freq PRN Reason Stop Dose Admin Acetaminophen 1,300 mg 08/07/23 22:00 08/08/23 19:53 Acetaminophen 325 Mg Tab PO 09/06/23 21:59 1,300 mg Q12 LEONCIO Administration Atorvastatin Calcium 80 mg 08/07/23 21:49 08/08/23 19:53 Atorvastatin 40 Mg Tab PO 09/06/23 21:48 80 mg HS LEONCIO Administration Cyanocobalamin 1,000 mcg 08/08/23 09:00 08/08/23 09:49 Cyanocobalamin (B-12) 500 Mcg Tablet PO 09/07/23 08:59 1,000 mcg QAM LEONCIO Administration Famotidine 20 mg/ Syringe 5 mls @ 2.5 mls/min 08/08/23 09:00 08/08/23 19:54 IV 09/07/23 08:59 2.5 mls/min Q12 LEONCIO Administration Lactated Ringer's 1,000 mls @ 80 mls/hr 08/07/23 21:49 08/08/23 23:26 Lr IV 09/06/23 21:48 80 mls/hr .[id number] LEONCIO Administration Vancomycin HCl 1,250 mg/ 275 mls @ 200 mls/hr 08/09/23 06:30 08/09/23 06:32 Sodium Chloride IV 08/09/23 07:52 200 mls/hr ONE ONE Administration Melatonin 6 mg 08/09/23 02:45 08/09/23 03:00 Melatonin 3 Mg Tab PO 09/08/23 02:44 6 mg HS PRN Administration Sleep Metoprolol Tartrate 50 mg 08/07/23 21:49 08/08/23 19:52 Metoprolol Tartrate 50 Mg Tab PO 09/06/23 21:48 50 mg BID LEONCIO Administration Oxycodone HCl 5 mg 08/08/23 12:34 08/08/23 22:03 Oxycodone Hcl Ir 5 Mg Tab (Immediate Release) PO 08/11/23 12:33 5 mg Q6H PRN Administration Pain NPO Date Last Intake of Fluids: 08/08/23 Time Last Intake of Fluids: 23:00 Date Last Intake of Solids: 08/08/23 Time Last Intake of Solids: 23:00 Last Intake of Solids Comment: club crackers Past Medical History Medical History (Updated 08/09/23 @ 06:35 by Perfecto Coon DO) Encounter for pre-operative examination Chondrocalcinosis of right knee History of COVID-19 Dx 2020- "mild symptoms," resolved History of prostate cancer Treated with neoadjuvant hormone therapy, brachytherapy, external beam radiation History of non-ST elevation myocardial infarction (NSTEMI) 12/2020 Rotator cuff syndrome of left shoulder Coronary artery disease CABG x3 (2020) Follows with Dr. Eduardo Bryant Right knee DJD Aortic atherosclerosis Noted on AAA screen History of basal cell carcinoma Ear/nose Hypercholesterolemia Hypertension Impaired fasting glucose Seborrheic dermatitis Past Family History Family History Other Hypertension No family history of adverse response to anesthesia No family history of bleeding disorder Past Surgical History Surgical History Status post left knee replacement History of prostate biopsy History of tooth extraction all teeth removed History of basal cell carcinoma excision History of bilateral cataract extraction History of cardiac cath 12[place]2020 [place] stent > CABG x3 History of left knee replacement S/P CABG x 3 12/2020 [place] [place] History of tonsillectomy History of appendectomy History of vasectomy Social History Smoking Status: Never smoker tobacco type: pipe Do You Dip or Chew Tobacco: No Hx Alcohol Use: Yes Alcohol type: wine alcohol intake frequency: holidays/special occasions only Hx Substance Use: No substance use type: does not use Physical Exam Vital Signs Last Vital Signs Temp 99.5 F 08/09/23 06:21 Pulse 84 08/09/23 06:21 Resp 18 08/09/23 06:21 BP 182/89 H 08/09/23 06:21 Pulse Ox 92 08/09/23 06:21 O2 Del Method Room Air 08/09/23 06:21 Testing Laboratory Results 08/08/23 03:35 08/08/23 04:31 PT 11.9 Seconds (9.0-12.0) 08/08/23 03:31 INR 1.1 (0.9-1.1) 08/08/23 03:31 APTT 23 Seconds (21-31) 08/08/23 03:31 Urine Color Yellow 08/07/23 21:10 Urine Appearance Clear (Clear) 08/07/23 21:10 Urine pH 6.0 (4.5-7.5) 08/07/23 21:10 Ur Specific [place] 1.018 (1.000-1.030) 08/07/23 21:10 Urine Protein Negative (Negative) 08/07/23 21:10 Urine Glucose (UA) Negative (Negative) 08/07/23 21:10 Urine Ketones Negative (Negative) 08/07/23 21:10 Urine Nitrite Negative (Negative) 08/07/23 21:10 Ur Leukocyte Esterase Negative (Negative) 08/07/23 21:10 Blood Type A Positive 08/08/23 08:04 Antibody Screen NEGATIVE 08/08/23 08:04 Electrocardiogram Date: 08/07/23 Findings: + RBBB
[2023-08-09] MEDS ORDERED: ATROPINE SULFATE 0.1 MG/ML 10ML SYR IV PRN (06:41)
[2023-08-09] MEDS ORDERED: ePHEDrine sulfate 50 MG/ML AMP IV PRN (06:41)
[2023-08-09] MEDS ORDERED: fentaNYL citrate PF 100 MCG/2 ML VIAL IV PRN (06:41)
[2023-08-09] MEDS ORDERED: ONDANSETRON INJ 2 MG/ML 2 ML VIAL IV PRN (06:41)
[2023-08-09] MEDS ORDERED: ROCURONIUM BROMIDE 10 MG/ML 5 ML VIAL IV ONE (06:48)
[2023-08-09] MEDS ORDERED: fentaNYL citrate PF 100 MCG/2 ML VIAL ONE ×2 (06:48→07:38)
[2023-08-09] MEDS ORDERED: ONDANSETRON INJ 2 MG/ML 2 ML VIAL ONE (06:48)
[2023-08-09] MEDS ORDERED: DEXAMETHASONE SOD INJ 4 MG/ML VIAL ONE (06:48)
[2023-08-09] MEDS ORDERED: PROPOFOL IV EMULSION 10 MG/ML 20 ML VIAL IV ONE (06:48)
[2023-08-09] MEDS ORDERED: SUGAMMADEX SODIUM 200 MG/2 ML VIAL IV ONE (06:49)
[2023-08-09] MEDS ORDERED: BUPIVACAINE/EPINEPHRINE 0.5% MPF 1:200,000 30 ML VIAL ONE (06:50)
--- NOTE | 2023-08-09 06:59 | History & Physical Bridge Note ---
Date of Service August 09, 2023 History & Physical Bridge Note I have examined the patient, reviewed the History & Physical and in the interval since the performance of the History & Physical I have noted the following changes of clinical significance: no changes noted
[2023-08-09] MEDS ORDERED: TRANEXAMIC ACID / 0.7% NACL 1000MG/100ML BAG IV ONE (07:16)
[2023-08-09] MEDS ORDERED: PHENYLEPHRINE HCL 10 MG/ML VIAL ONE (07:19)
[2023-08-09] MEDS ORDERED: TRANEXAMIC ACID 100 MG/ML 10 ML VIAL IV ONE (07:46)
[2023-08-09] MEDS ORDERED: hydrALAZINE HCL 20 MG/ML VIAL IV PRN (08:37)
[2023-08-09] MEDS ORDERED: THIAMINE HCL 200 MG in SODIUM CHLORIDE 0.9% 50 ML IV STA (08:38)
--- NOTE | 2023-08-09 09:03 | Operative Report ---
PG Post Operative Report Pre & Post Diagnosis Operation Date: 08/09/23 07:00 Pre-Op Diagnosis: Acute Comminuted Displaced Right Femoral Neck Fracture Post-Op Diagnosis: Acute Comminuted Displaced Right Femoral Neck Fracture I identified the patient and participated in the time-out.: Yes Procedure Operation Date: 08/09/23 07:00 Actual Procedures p Right Total Hip Arthroplasty, Cemented(Right) - Juan Gallego MD Surgeon Juan Gallego MD Jigger Operator Alejandro Pinedo PA-C Estimated Blood Loss 200 Findings Consistent with Post-Op Diagnosis Operative findings revealed displaced slightly comminuted femoral neck fracture. He did have some wear of his acetabulum with what appeared to be some chondrocalcinosis. Specimens Right femoral head sent for pathology. Anesthesia Type General Complications none Disposition Accompanied Patient To Recovery: No Indications Patient is an 83-year-old very active gentleman who was still works who is now 6 weeks out from a right total knee replacement. He was at home putting away [employer] decorations when he stumbled over his ice pack and landed on his right hip. Cute onset of hip pain and unable to ambulate. She brought him to the emergency room where x-rays were displaced femoral neck fracture. Patient does have a history of intermittent hip pain despite fairly normal-looking x-rays. He was admitted medically optimized. Treatment options were discussed and we elected proceed with total hip arthroplasty due to his active lifestyle and pre- existing hip pain. We also elected to use the cement high offset stem in order to maximize his stability and improve his offset and soft tissue tension. Description of Procedure Operative implants consist of: 1 [place] size 52 mm acetabular shell. 2. 6.5 cancellous acetabular screws 135 mm length 125 mm length. 3. [place] military police officer. 4. Highly cross-linked polyethylene liner with a 52 mm outer diameter 36 mm diameter. 5. [place] size 3 high offset femoral stem. 6. +8.5/36 mm metal articular ball. The patient was taken the operating, identified, placed on the operating table in the supine position architectures were properly padded. IV antibiotics tried by anesthesia team. A general anesthetic was implemented. 1 g of TXA was given as well. The patient was then placed in the left lateral decubitus position. Next layer was placed but distal [place] position was used for positioning. Right hip and leg were then scrubbed with Hibiclens, prepped with ChloraPrep and draped in usual sterile fashion. Posterolateral right hip was then performed to a curvilinear incision centered over the greater trochanter. Sharp dissection carried through subcutaneous tissue down to the IT band gluteal fascia. The IT band gluteal fascia incised longitudinally in line with skin incision. The underlying greater bursa was excised. The piriformis and external rotators along with the posterior hip joint capsule were then released and the posterior aspect hip as a single layer. Hip was internally rotated. Femoral neck osteotomy cut was made just at the base of the fracture which went fairly low in about centimeters above the lesser trochanter. Femoral neck and femoral head removed. The femur was retracted anteriorly. Attention drawn the acetabulum. The acetabular labrum was excised. I did curette some of the cartilage of the acetabulum. He did have some acetabular disease which look to be is like some chondrocalcinosis. We then reamed beginning with size 47 progressing up to 51. I reamed a little bit with a 52 reamer and then placed a 52 mm [place] acetabular shell in about 40 degrees lateral opening 20 degrees of anteversion. Fixed with two 6.5 cancellous acetabular screws. A trial liner was placed. Attention drawn the femur. The proximal femur was then with a [employer] cutter followed by canal finder and lateralizing reamer. I then broached beginning with size 1 and progressing up to 3. We got good fit a 3. Trial of the hip. Soft tissue tension was a little bit laxity with a +5 head so we used a +8.5/36 mm articular ball in order to maximize stability and get appropriate soft tissue tension. The leg lengths seemed fairly equivalent. We elect place his implants. Nupathe all trial implants were removed. [place] military police officer was placed but highly cross-linked polyethylene liner was placed. A small cement restrictor was placed down the canal at 14 cm. The canal was irrigated and cleaned. A double batch [place] G cement was mixed and injected in the canal and a size 3 Calvert femoral stem was then placed. Once all cement hardened a +8.5/36 mm metal articular ball was placed. The hip was located and once again found to be stable. Attention drawn toward closing. The wounds irrigated with normal saline. We did inject locally with 60 cc of half percent Marcaine with epinephrine. Posterior capsule and external rotators were repaired through drills in the posterior trochanter with #1 Tycron suture. The IT band gluteal fascia then closed in 1 PDS suture running fashion with subcutaneous tissue then closed 2 layers of deep layer #1 Vicryl suture in the subcutaneous tissue with 2 Dexon suture in buried interrupted fashion the skin was closed skin kristin. Leg was then cleaned and dried and sterile dressing with Xeroform, 4 fours, ABD pad and foam tape was applied. Patient then brought out of general esthesia and transferred to the recovery room in stable condition. Patient tolerated procedure well and there were no complications. Alejandro Pinedo, my physician client account assistant, was present for the entire procedure. His assistance was essential and required for appropriate patient positioning, prepping and draping, surgical exposure, performing the technical details of the operation, placement the implants, closure of the wound, and placement of the sterile bandage. I attest to the content of the Intraoperative Record and any orders documented therein. Any exceptions are noted below.
--- NOTE | 2023-08-09 09:18 | Anesthesiology Progress Note ---
Date of Service August 09, 2023 Anesthesia Post Procedure Vital Signs Vital Signs: Temp Pulse Pulse Resp BP BP Pulse Ox 08/09/23 09:05 72 17 121/66 93 08/09/23 08:55 77 17 102/91 97 08/09/23 08:49 98.1 F 78 17 140/71 99 08/09/23 06:21 99.5 F 84 18 182/89 H 92 08/08/23 19:51 98.8 F 78 18 167/85 H 93 08/08/23 19:30 08/08/23 14:48 98.8 F 65 16 171/82 H 95 08/08/23 11:12 98.2 F 62 16 162/87 H 96 08/08/23 09:51 78 18 182/88 H 96 O2 Del Method O2 Flow Rate 08/09/23 09:05 Room Air 08/09/23 08:55 Room Air 08/09/23 08:49 Oxymask 4 08/09/23 06:21 Room Air 08/08/23 19:51 Room Air 08/08/23 19:30 Room Air 08/08/23 14:48 Room Air 08/08/23 11:12 Room Air 08/08/23 09:51 Room Air Pain Intensity Right Hip: Pain Intensity: 4 Transfer of Care Handoff Completed per policy Notes Mental Status: alert / awake / arousable and participated in evaluation Patient Amnestic to Procedure: Yes Nausea / Vomiting: adequately controlled Pain: adequately controlled Airway Patency, RR, SpO2: stable & adequate BP & HR: stable & adequate Hydration State: stable & adequate Anesthetic Complications: no major complications apparent and Pt Satisfied with anesthetic care Notes: still confused postoperatively, following commands appropriately
[2023-08-09] MEDS ORDERED: VANCOMYCIN CONSULT ACTIVE PRN (09:25)
[2023-08-09] MEDS: ACETAMINOPHEN 325 MG TAB PO SCH (09:27)
[2023-08-09] MEDS: SODIUM CHLORIDE 0.9% 1,000 ML IV SCH ×2 (09:34→21:58)
[2023-08-09] MEDS: FAMOTIDINE 20 MG in SYRINGE 3 ML IV SCH ×2 (09:37→20:04)
[2023-08-09] MEDS: CYANOCOBALAMIN (B-12) 500 MCG TABLET PO SCH (09:48)
[2023-08-09] MEDS: METOPROLOL TARTRATE 50 MG TAB PO SCH ×2 (09:49→20:04)
[2023-08-09] MEDS: ASPIRIN 81 MG ECTAB PO SCH ×2 (10:50→20:04)
--- NOTE | 2023-08-09 10:51 | XRay Report ---
AP AND CROSSTABLE LATERAL RIGHT HIP History: Right total hip arthroplasty. Postop. FINDINGS: The patient is status post a right total hip arthroplasty. The hardware is intact. No fract ure or dislocation. Skin kristin are in place. IMPRESSION: Right total hip arthroplasty. No evidence for hardware complication ACT 112: Negative or not required by law. Electronically signed by: Mj Escobar M.D. 08/09/2023 10:49 AM
[2023-08-09 12:17] LABS: Hematocrit (blood only) 35.4 % (42.0-52.0); Hemoglobin 11.6 g/dl (14.0-18.0); Mean Corpuscular Hemoglobin 31.4 pg (25.0-34.0); Mean Corpuscular Hgb Conc 32.8 g/dL (32.0-36.0); Mean Corpuscular Volume 95.9 fL (80.0-100.0); Mean Platelet Volume 9.5 fL (9.4-12.4); Platelet Count 224 K/uL (130-400); RDW Coefficient of Variation 13.7 % (11.5-14.5); RDW Standard Deviation 48.8 fL (36.4-46.3); Red Blood Count 3.69 M/uL (4.70-6.10); White Blood Count 11.78 K/ul (4.8-10.8)
[2023-08-09 12:27] LABS: Albumin Level 3.5 gm/dl (3.4-5.0); BUN Creatinine Ratio 17.8 (10-20); Calcium 8.5 mg/dl (8.6-10.3); Creatinine Clr Calc Pharmacy 64.8 ml/min; Est GFR (African American) 89.9 ml/min; Est GFR (Non-African American) 77.6 ml/min; Magnesium 1.7 mg/dl (1.7-2.4); Phosphorus 3.4 mg/dl (2.5-4.9); Potassium 3.8 mmol/L (3.5-5.1)
[2023-08-09 12:38] LABS: INR 1.1 (0.9-1.1); Partial Thromboplastin Ratio 1.1; Partial Thromboplastin Time 30 Seconds (21-31); Prothrombin Time 12.4 Seconds (9.0-12.0)
[2023-08-09 12:47] LABS: Basophils # (auto) 0.02 K/uL (0.00-0.20); Basophils % (auto) 0.2 %; Eosinophils # (auto) 0.01 K/uL (0.00-0.50); Eosinophils % (auto) 0.1 %; Immature Granulocytes # (auto) 0.05 K/uL (0.01-0.20); Immature Granulocytes % (auto) 0.4 %; Lymphocytes # (auto) 0.37 K/uL (1.20-3.40); Lymphocytes % (auto) 3.1 %; Monocytes # (auto) 0.57 K/uL (0.11-0.59); Monocytes % (auto) 4.8 %; Neutrophils # (auto) 10.76 K/uL (1.40-6.50); Neutrophils % (auto) 91.4 %
--- NOTE | 2023-08-09 16:04 | Hospitalist Progress Note ---
Date of Service August 09, 2023 Assessment & Plan (1) Closed fracture of neck of right femur: Plan: Mechanical fall with recent right total knee arthroplasty June 28, 2023 Postoperative pain control with combination of acetaminophen and opiate therapy Orthopedic preference aspirin 81 twice daily for DVT prevention (2) Coronary artery disease: Plan: Stable coronary disease disease and hypertension after increasing metoprolol from 25-50 twice daily continuing aspirin as DVT prevention holding losartan in the postoperative period to avoid orthostatic hypotension (3) History of prostate cancer: Plan: Patient history of prostate cancer without evidence of lower urinary tract symptoms at this time however Anaya catheter is in place we will remove prior to discharge Plan Patient with mild acute blood loss anemia not needed transfusion felt some confusion last p.m. CT head did not reviewed at reveal any intracranial abnormalities. Patient does have history of drinking wine;will be cautiously observant for alcohol withdrawal Instituted thiamine therapy Admission and Anticipated Discharge Date Admission Date: August 07, 2023 Subjective Patient seen postoperatively in the presence of his he Has a joking type of personality unclear whether it is hiding some memory loss or some cognitive issue. His seems satisfied as he returned to his baseline. Physical Exam Physical Exam: Awake alert and oriented Card exam is regular with a systolic murmur Lungs are clear without wheezes or crackles Right hip wound is dressed there is no induration or firmness to it distal pulses are intact Results & Data Results & Data Vital Signs (Past 12 Hours) Vital Signs Temp Pulse Pulse Resp BP BP Pulse Ox 08/09/23 15:28 97.9 F 76 16 134/71 95 08/09/23 12:26 69 16 130/78 95 08/09/23 11:30 97.9 F 68 16 120/67 97 08/09/23 10:30 97.3 F L 67 16 121/66 94 08/09/23 10:00 98.2 F 71 16 125/65 95 08/09/23 09:45 08/09/23 09:30 97.7 F 67 16 130/77 91 08/09/23 09:15 98.4 F 69 15 117/59 L 95 08/09/23 09:05 72 17 121/66 93 08/09/23 08:55 77 17 102/91 97 08/09/23 08:49 98.1 F 78 17 140/71 99 08/09/23 06:21 99.5 F 84 18 182/89 H 92 O2 Del Method O2 Flow Rate 08/09/23 15:28 Room Air 08/09/23 12:26 Room Air 08/09/23 11:30 Room Air 08/09/23 10:30 Nasal Cannula 2 08/09/23 10:00 Nasal Cannula 2 08/09/23 09:45 Nasal Cannula 2 08/09/23 09:30 Room Air 08/09/23 09:15 Room Air 08/09/23 09:05 Room Air 08/09/23 08:55 Room Air 08/09/23 08:49 Oxymask 4 08/09/23 06:21 Room Air Laboratory Results Reviewed CBC reviewed chemistry PG Care Time/CCT Total # of Minutes Spent Total Time Spent with Patient: Total time spent is greater than 50% in coordination of care (as documented) at patient's floor/unit and/or counseling patient: Coding Level of Care Code 80970 SUB INP/OBS CARE 2/35MIN Diagnoses Closed fracture of neck of right femur, initial encounter S72.001A Encounter type: initial encounter Coronary artery disease I25.10 History of prostate cancer Z85.46 (1) Closed fracture of neck of right femur Encounter type: initial encounter Qualified Code(s): S72.001A - Fracture of unspecified part of neck of right femur, initial encounter for closed fracture
[2023-08-09] MEDS ORDERED: VANCOMYCIN HCL 1,250 MG in SODIUM CHLORIDE 0.9% 500 ML IV SCH (19:00)
[2023-08-09] MEDS: ATORVASTATIN 40 MG TAB PO SCH (20:04)
[2023-08-09] MEDS ORDERED: MELATONIN 3 MG TAB PO STA (21:50)
[2023-08-10 07:32] LABS: Basophils # (auto) 0.04 K/uL (0.00-0.20); Basophils % (auto) 0.4 %; Eosinophils % (auto) 0.9 %; Hematocrit (blood only) 30.4 % (42.0-52.0); Hemoglobin 9.9 g/dl (14.0-18.0); Immature Granulocytes # (auto) 0.06 K/uL (0.01-0.20); Immature Granulocytes % (auto) 0.5 %; Lymphocytes # (auto) 0.73 K/uL (1.20-3.40); Lymphocytes % (auto) 6.6 %; Mean Corpuscular Hemoglobin 31.5 pg (25.0-34.0); Mean Corpuscular Hgb Conc 32.6 g/dL (32.0-36.0); Mean Corpuscular Volume 96.8 fL (80.0-100.0); Mean Platelet Volume 9.7 fL (9.4-12.4); Monocytes # (auto) 1.36 K/uL (0.11-0.59); Monocytes % (auto) 12.3 %; Neutrophils # (auto) 8.74 K/uL (1.40-6.50); Neutrophils % (auto) 79.3 %; Platelet Count 208 K/uL (130-400); RDW Coefficient of Variation 13.9 % (11.5-14.5); RDW Standard Deviation 49.4 fL (36.4-46.3); Red Blood Count 3.14 M/uL (4.70-6.10); White Blood Count 11.03 K/ul (4.8-10.8)
[2023-08-10 07:47] LABS: Albumin Level 2.9 gm/dl (3.4-5.0); BUN Creatinine Ratio 23.9 (10-20); Calcium 8.4 mg/dl (8.6-10.3); Creatinine Clr Calc Pharmacy 63.4 ml/min; Est GFR (African American) 87.6 ml/min; Est GFR (Non-African American) 75.6 ml/min; Magnesium 1.6 mg/dl (1.7-2.4); Phosphorus 2.5 mg/dl (2.5-4.9)
[2023-08-10] MEDS: CYANOCOBALAMIN (B-12) 500 MCG TABLET PO SCH (08:12)
[2023-08-10] MEDS: METOPROLOL TARTRATE 50 MG TAB PO SCH ×2 (08:12→20:22)
[2023-08-10] MEDS: FAMOTIDINE 20 MG in SYRINGE 3 ML IV SCH (08:12)
[2023-08-10] MEDS: ASPIRIN 81 MG ECTAB PO SCH ×2 (08:13→20:22)
[2023-08-10 08:27] LABS: INR 1.1 (0.9-1.1); Partial Thromboplastin Time 29 Seconds (21-31); Prothrombin Time 12.2 Seconds (9.0-12.0)
[2023-08-10] MEDS ORDERED: MAGNESIUM SULFATE / D5W 1 GM/100 ML BAG IV ONE (09:56)
--- NOTE | 2023-08-10 10:08 | Orthopedic Progress Note ---
Date of Service August 10, 2023 Assessment & Plan (1) Status post right hip replacement: Overall, he is doing quite well today with good pain control. He will work with physical therapy later today to work on ambulation and range of motion exercises to the right hip. He is on aspirin for DVT prophylaxis. Him and his are interested in him going to a rehabilitation hospital upon discharge. Case management is on board. Medical management per primary. Continue with hip precautions. He will follow-up with Dr. Gallego in 2 weeks for postoperative care. Subjective . Asif was seen and evaluated at bedside this morning resting comfortably in no apparent distress. He notes that his pain is well-controlled to the right hip. He has been up and out of bed with some difficulty with occupational therapy today. He has yet to be seen by physical therapy today. He denies any other concerns today. Review of Systems All systems reviewed & are unremarkable except as noted in HPI & below. Physical Exam . On physical examination of the right hip, dressing is clean, dry, intact. His leg is out in full extension. He has active plantarflexion dorsiflexion to the right ankle. +2 DP and PT pulses. Less than 2-second capillary refill. Normal sensation. Neurovascular intact. Results & Data Results & Data Laboratory Results . Diagnostic Findings . Postoperative x-rays of the right hip show prosthesis in anatomical alignment with no signs of fracture complication or loosening. PG Care Time/CCT Total # of Minutes Spent Total Time Spent with Patient: Total time spent is greater than 50% in coordination of care (as documented) at patient's floor/unit and/or counseling patient: Coding Level of Care Code 22038 Post Operative Follow-Up Diagnoses Status post right hip replacement Z96.641
--- NOTE | 2023-08-10 16:46 | Hospitalist Progress Note ---
Date of Service August 10, 2023 Assessment & Plan (1) Closed fracture of neck of right femur: Plan: Mechanical fall with recent right total knee arthroplasty June 28, 2023 Postoperative pain control with combination of acetaminophen and opiate therapy Orthopedic preference aspirin 81 twice daily for DVT prevention (2) Coronary artery disease: Plan: Stable coronary disease disease and hypertension, increased metoprolol from 25- 50 twice daily continuing aspirin as DVT prevention holding losartan in the postoperative period to avoid orthostatic hypotension (3) History of prostate cancer: Plan: Patient history of prostate cancer without evidence of lower urinary tract symptoms at this time however Anaya catheter is in place we will remove prior to discharge Plan acute blood loss anemia not needed transfusion felt some confusion last p.m. CT head did not reviewed at reveal any intracranial abnormalities. Patient does have history of drinking wine;will be cautiously observant for alcohol withdrawal Instituted thiamine therapy Pt agreeable to rehab, will have CM eval for placement Admission and Anticipated Discharge Date Admission Date: August 07, 2023 Subjective Patient seen postoperatively in the presence of his once again on 08/10/23 He did not do well by his account with PT and is agreeable to rehab Physical Exam Physical Exam: Awake alert and oriented Card exam is regular with a systolic murmur Lungs are clear without wheezes or crackles Right hip wound is dressed there conintues to be no induration or firmness to it distal pulses are intact Results & Data Results & Data Vital Signs (Past 12 Hours) Vital Signs Temp Pulse Resp BP Pulse Ox O2 Del Method 08/10/23 15:38 99.5 F 74 16 130/75 92 Room Air 08/10/23 11:43 99.7 F H 69 16 128/72 93 Room Air 08/10/23 08:00 98.1 F 79 16 130/73 96 Room Air Laboratory Results reviewed cbc reviewed chemistry PG Care Time/CCT Total # of Minutes Spent Total Time Spent with Patient: Total time spent is greater than 50% in coordination of care (as documented) at patient's floor/unit and/or counseling patient: Coding Level of Care Code 94303 SUB INP/OBS CARE 2/35MIN Diagnoses Closed fracture of neck of right femur, initial encounter S72.001A Encounter type: initial encounter Coronary artery disease I25.10 History of prostate cancer Z85.46 (1) Closed fracture of neck of right femur Encounter type: initial encounter Qualified Code(s): S72.001A - Fracture of unspecified part of neck of right femur, initial encounter for closed fracture
[2023-08-10] MEDS: FAMOTIDINE 20 MG TAB PO SCH (20:21)
[2023-08-10] MEDS: ATORVASTATIN 40 MG TAB PO SCH (20:23)
[2023-08-11] MEDS: ASPIRIN 81 MG ECTAB PO SCH (08:28)
[2023-08-11] MEDS: METOPROLOL TARTRATE 50 MG TAB PO SCH (08:29)
[2023-08-11] MEDS: FAMOTIDINE 20 MG TAB PO SCH (08:29)
[2023-08-11] MEDS: CYANOCOBALAMIN (B-12) 500 MCG TABLET PO SCH (08:29)
[2023-08-11] MEDS ORDERED: POLYETHYLENE (MIRALAX) 17 GM PACK PO SCH (12:00)
--- NOTE | 2023-08-11 15:13 | Discharge Summary ---
Date of Service August 11, 2023 Admission HPI Per Admitting Provider The patient is an 83-year-old male with a past medical history including left total knee arthroplasty by Dr. Gallego 5 years ago, right total knee arthroplasty by Dr. Gallego 06/28/2023, vit B12 deficiency, prostate cancer, history of NSTEMI, CAD, hypercholesterolemia, hypertension, impaired fasting glucose, tendinitis of biceps, right rotator cuff, right ischial bursitis and vitamin D deficiency. He reports that he was recovering well from his right total knee arthroplasty, but as he is moving around moving [employer] this evening, the ice pack that is using on his right knee slid down, he ended up falling to the ground onto his right hip, did sustain severe right hip pain. In the ED, x-rays of right hip showed an acute comminuted displaced right femoral neck fracture, for which he was referred for evaluation for admission Principal Diagnosis mechanical fall rip hip fracture with total arthroplasty, 08/09/23 Discharge Exam wound is dressed, no induration swelling or warmth intermittent confusion with comical style to try to cover it up cardiac exam is regular Discharge Data Allergies Allergy/AdvReac Type Severity Reaction Status Date / Time Penicillins Allergy Intermediate Hives Verified 08/07/23 19:17 SHASHI Inhibitors AdvReac Mild Cough Verified 08/07/23 19:17 iodine AdvReac Mild Vomiting Verified 08/07/23 19:17 shellfish derived AdvReac Mild Vomiting Verified 08/07/23 19:17 Consultations 08/07/23 19:30 ED Decision to Admit Stat 08/07/23 21:49 Consult Orthopedic Surgery Routine Procedures Performed Operation Date: 08/09/23 07:00 Actual Procedures p Right Total Hip Arthroplasty, Cemented(Right) - Juan Gallego MD Ordered Studies 08/08/23 18:30 CT head/brain wo con Urgent Hospital Course (1) Closed fracture of neck of right femur: Mechanical fall with recent right total knee arthroplasty June 28, 2023 right hip ORIF 08/09/23, Postoperative pain control with only needing acetaminophen Orthopedic preference aspirin 81 twice daily for DVT prevention (2) Coronary artery disease: Stable coronary disease disease and hypertension, increased metoprolol from 25- 50 twice daily continuing aspirin as DVT prevention holding losartan in the postoperative period to avoid orthostatic hypotension (3) History of prostate cancer: Patient history of prostate cancer without evidence of lower urinary tract symptoms at this time however Anaya catheter is in place we will remove prior to discharge Plan acute blood loss anemia not needed transfusion felt some confusion during stay, CT head did not reviewed at reveal any intracranial abnormalities. Patient does have history of drinking wine;will be cautiously observant for alcohol withdrawal no formal signs of withdrawal though Pt agreeable to rehab, transfered to inpatient rehab Total Time Total Time Spent Total Time Spent (In Minutes): It required greater than 30 minutes to prepare this patient for discharge. Discharge Plan Discharge Items Patient Disposition: Transfer Inpatient Rehab Fac Reason For Visit: CLOSED RIGHT HIP FRACTURE Discharge Diagnosis: Right Hip Replacement for Fracture Activity: Per Instructions section Activity Comment: Follow/Obey hip precautions at all times. Weightbearing: Full weightbearing Weightbearing Comment: Weightbear as tolerated obeying hip precautions at all times Non-emergency contact: Surgeon Call non-emergency contact if: your symptoms worsen Follow-up/Referrals: Letitia Jordan MD [Primary Care Provider] - Juan Gallego MD [Physician] - (Orthopedic follow-up 2-3 weeks from surgery date.) Diet: Regular Addtl Attending Provider Instructions: ACTIVITY RECOMMENDATIONS: Physical Therapy: * Aggressive physical therapy is not usually needed. You will learn to take care of yourself safely and walk. * Follow the "Hip Precautions Instructions." * In some cases, the social media executive at the hospital will arrange to have a therapist come to your house for the first couple of weeks to help you learn these skills. * You need to practice on your own or with the help of a family member as needed. * When you learn these skills, most of the therapy can be done on your own. Home Exercise: * You were shown a series of exercises in the hospital. Do these exercises three to four times each day including the exercises you were shown in physical therapy. Walking: * Get up and walk several times each day. For the first four weeks, try not to stand or walk for more than one hour at a time. If you do stand or walk for more than one hour, you will not hurt anything, but your leg will likely swell. * As you feel comfortable, you may change from the walker or crutches to a cane and then to independent walking. MEDICATIONS: New Medicine: * You will likely be taking one or more of these medicines: 1. Tramadol - Take, as directed, when you need it, every six hours to control your pain. 2. Aspirin - Thins your blood to lessen the chance of forming a blood clot. * The most common side effects of pain medicine and iron are nausea and constipation. If nausea or constipation is too much of a problem or if you have any questions about your new medicines or doses, call [facility] at [phone]. We will try to help you manage these issues. "VERY IMPORTANT TO READ AND REVIEW" Pain: * The immediate post-operative period after hip replacement surgery is often quite painful. * You are given a prescription for pain medicine. You should take it, as directed, when you need it, especially before physical therapy and before going to bed. Pain that interferes with sleep is very common and can last several months. * You will likely need pain medicine for the first two to four weeks. It will not stop all of the pain. The pain will lessen and as you feel better, you may change to milder pain medicine such as Tylenol. * The most common side effects of pain medicine are nausea and constipation, so don't take more than you need. SPECIAL CARE INSTRUCTIONS: TEDs/Elastic Stockings: * The white elastic stockings help limit swelling and prevent blood clots from forming in your legs. The more you wear them, the more they work. * Wear them for six weeks. Incision Site Care: * Remove dressing postoperative day 2 and then shower. Keep direct shower pressure off the incision site. * After showering, cover pascual with dry gauze and change daily or more frequently if the dressing is getting saturated with drainage. * May completely stop using bandage if wound is dry and no drainage * Pascual are removed between 2 and 3 weeks post-op. If your follow-up appointment is made before 2 weeks, please have your appointment re- scheduled. It is too early to remove the pascual. Prevention of Infection: * Take antibiotics one hour before any dental cleaning, dental work, urological procedure, gastrointestinal procedure or any invasive surgery in order to prevent your new joint from getting infected. * You may get the antibiotics from the doctor performing the procedure or you may call our office at before and we will call in a prescription to the pharmacy of your choice. Things to Watch For: * Drainage from the incision site that occurs more than one week after your surgery. * Severely increased leg pain or swelling. * Increased redness at the incision site. * Fever above 102 degrees Fahrenheit. * Unusual chest pain or shortness of breath. * Unusual pain or burning with urination. Call [facility] at with any of the above problems or if you have any questions about your medicines or recovery. FOLLOW UP VISIT: Make an appointment to see your doctor for approximately two weeks after surgery for a progress check and staple removal by calling the office at . Addtl Acoustical Carpenter Provider Instructions: consider close attention to a bowel regiment including daily fiber supplements pt has been doing well with little need for pain control sometime needs re oriented at night Pending Studies at Discharge: No Stand-Alone Forms: My [facility] Skilled Items Patient informed of condition?: Yes DNR: No Discharge Level of Care: Acute rehab Communicable Disease: No Discharge Prognosis: Stable Lines: None Urinary Catheter: No Medications and DC Order Prescriptions: New polyethylene glycol 3350 [Miralax] 17 gram Powder In Packet 17 g PO DAILY Qty: 30 0RF aspirin 81 mg Tablet,Delayed Release (Dr/Ec) 81 mg PO BID Qty: 60 0RF Continued ondansetron 4 mg tablet,disintegrating 4 mg PO Q8 PRN (Reason: nausea) Qty: 20 1RF Rx Instructions: Take as needed for nausea metoprolol tartrate 25 mg tablet 25 mg PO BID Qty: 180 3RF mecobalamin (vitamin B12) 1,000 mcg tablet,chewable 1,000 mcg PO QAM acetaminophen [Tylenol Arthritis Pain] 650 mg Tablet Extended Release 1,300 mg PO Q12H atorvastatin [Lipitor] 80 mg tablet 80 mg PO HS Held aspirin [Aspir-Low] 81 mg Tablet,Delayed Release (Dr/Ec) 81 mg PO DAILY Hold Instructions: Resume on 09/11/23. losartan 50 mg tablet 50 mg PO DAILY Hold Instructions: Resume on 08/17/23. Discharge Orders: Discharge Order (Routine); Ordered 08/11/23 Ordered By: Javon Deleon Admission Data Admit Date/Time: 08/07/23 20:35 Attending Provider: Javon Deleon Admit Provider: Cm Aguilar Primary Care Provider: Letitia Jordan. Other Providers: Cm Aguilar; Juan Gallego; [facility] Coding Level of Care Code 89296 INP/OBS DISCH >30 MIN Diagnoses Closed fracture of neck of right femur, initial encounter S72.001A Encounter type: initial encounter Coronary artery disease I25.10 History of prostate cancer Z85.46
== END 2023-08-11 17:25 | DRG 522 ==
LOC: ED 18:00 → SUATTDRO 20:35 → EDINP 20:35 → 3N 21:50

== ENCOUNTER 2024-03-02 17:39 | Inpatient (IN) ==
[2024-03-02 17:52] VITALS: TEMP 98.4
--- NOTE | 2024-03-02 18:20 | XRay Report ---
XR chest 1V portable HISTORY: Chest pain, nonspecific COMPARISON: Chest 06/01/2023. FINDINGS: No pneumothorax. Stable blunting left lateral costophrenic sulcus suggestive of scarring. T here are few stable linear densities the left lung base which also favors scarring. No new focal lung consolidations to suggest pneumonia. No evidence for pulmonary edema. The heart is normal in size. T here are poststernotomy changes. There are old left-sided rib fractures. Chronic deformity within the distal left clavicle, unchanged. IMPRESSION: No significant change compared to the prior study. No acute process. ACT 112: Negative or not required by law. Electronically signed by: Mj Escobar M.D. 03/02/2024 6:19 PM
[2024-03-02 18:21] LABS: Basophils # (auto) 0.05 K/uL (0.00-0.20); Basophils % (auto) 0.5 %; Eosinophils # (auto) 0.11 K/uL (0.00-0.50); Eosinophils % (auto) 1.1 %; Hematocrit (blood only) 43.4 % (42.0-52.0); Hemoglobin 14.1 g/dl (14.0-18.0); Immature Granulocytes # (auto) 0.05 K/uL (0.01-0.20); Immature Granulocytes % (auto) 0.5 %; Lymphocytes # (auto) 0.89 K/uL (1.20-3.40); Lymphocytes % (auto) 9.1 %; Mean Corpuscular Hemoglobin 31.1 pg (25.0-34.0); Mean Corpuscular Hgb Conc 32.5 g/dL (32.0-36.0); Mean Corpuscular Volume 95.8 fL (80.0-100.0); Mean Platelet Volume 9.1 fL (9.4-12.4); Monocytes # (auto) 0.78 K/uL (0.11-0.59); Neutrophils # (auto) 7.85 K/uL (1.40-6.50); Neutrophils % (auto) 80.8 %; Platelet Count 198 K/uL (130-400); RDW Coefficient of Variation 13.9 % (11.5-14.5); RDW Standard Deviation 49.1 fL (36.4-46.3); Red Blood Count 4.53 M/uL (4.70-6.10); White Blood Count 9.73 K/ul (4.8-10.8)
[2024-03-02 18:33] LABS: Albumin Globulin Ratio 1.7 (0.9-2); Albumin Level 4.7 gm/dl (3.4-5.0); BUN Creatinine Ratio 27.3 (10-20); Bilirubin,Total 0.4 mg/dl (0.2-1.0); Calcium 9.6 mg/dl (8.6-10.3); Creatinine Clr Calc Pharmacy 66.6 ml/min; Est GFR (African American) 95.2 ml/min; Est GFR (Non-African American) 82.2 ml/min; Globulin 2.7 gm/dl (2.5-4.0); Potassium 4.3 mmol/L (3.5-5.1); Total Protein 7.4 gm/dl (6.0-8.3)
[2024-03-02 18:40] LABS: Troponin I High Sensitivity 2.8 pg/ml (0-20)
[2024-03-02 18:43] LABS: Partial Thromboplastin Time 27 Seconds (21-31); Prothrombin Time 10.6 Seconds (9.0-12.0)
[2024-03-02] MEDS: NITROGLYCERIN SL 0.4 MG/TAB TAB SL STA (19:08)
[2024-03-02] MEDS: ONDANSETRON INJ 2 MG/ML 2 ML VIAL IV STA (19:22)
[2024-03-02] MEDS: diphenhydrAMINE 50 MG/ML VIAL IV STA (19:22)
[2024-03-02] MEDS: methylPREDNISolone 125 MG/2 ML VIAL IV STA (19:22)
--- NOTE | 2024-03-02 19:41 | Emergency Department Note ---
Impression & Plan Acute pancreatitis, Chest pain ED Provider Note Provider: Chintan Olivera MD DATE OF SERVICE: 03/02/2024 CHIEF COMPLAINT: Left chest pain, earlier abdominal pain HISTORY OF PRESENT ILLNESS: Patient is a 84-year-old gentleman history of CAD with prior CABG as well as hypertension presenting here today reporting some discomfort nonspecific in the mid abdomen earlier today that improved around 530p developed some left-sided chest discomfort below the left breast region. No trauma. No pleuritic component. Not short of breath. Denies significant nausea now. Took nitro and symptoms improved but then returned. Has been waxing waning. No other radiation of the back jaw or arms or abdomen at this time. PAST MEDICAL HISTORY: As noted above MEDICATIONS: Reviewed home medication list SOCIAL HISTORY: , rare once a quarter single alcohol drink but not recently, former smoker PHYSICAL EXAM: GENERAL: alert and oriented in no acute distress on stretcher Head: normocephalic and atraumatic EYES: No injection, discharge or icterus. NECK: Trachea midline. ENT: Mucous membranes pink and moist. LUNGS: Airway patent. No retractions. Breath sounds clear with good air entry bilaterally. HEART: Regular rate and rhythm. No chest wall tenderness ABDOMEN: Soft and non-tender, without guarding or rebound. SKIN: Acyanotic, warm, dry, without rashes EXTREMITIES: Without swelling, tenderness or deformity NEUROLOGICAL: No focal deficits. No aphasia. No facial droop or slurred speech. Ambulatory. EK bpm sinus rhythm occasional PVC. Right bundle branch block notable.No acute ST segment elevation with nonspecific T wave changes with a QTc of 44. CONTINUOUS CARDIAC MONITORING: was ordered and showed a heart rate of 60s to 80s bpm in sinus rhythm occasional PVCs Patient's laboratory studies and imaging reviewed. Differential includes Cardiac ischemia, aortic dissection, pulmonary embolism, pneumothorax, pneumonia, pericarditis, myocarditis, esophageal rupture, GERD, cholecystitis, pancreatitis, musculoskeletal, as well as other pathologies. IMPRESSION/MEDICAL DECISION MAKING: Abdominal pain earlier now more left lower chest pain. Benign abdomen. No significant nausea or shortness of breath or other radiation. Is been hypertensive. Cardiac history. EKG initial troponin reassuring. Does take baby aspirin every day. Given a dose of nitro to see if help with symptoms of some improvement prior to arrival. Will obtain CT scan of the chest as well as abdomen pelvis to look for other abnormality particular use glue dissection given his age and risk factors. Patient has tolerated IV dye before but did premedicate with Benadryl and steroid here. Chest x-ray is reassuring. No significant leukocytosis or anemia. No evidence of electrolyte abnormality or hepatic dysfunction. Lipase however does return at 2609. CTA of the abdomen pelvis as well as chest CTA shows per radiology report Likely represents an acute pancreatitis causing his symptoms. No history of pancreatitis. No significant alcohol use. Unclear exact etiology. Given his discomfort and his age will bring in. Given some gentle hydration and additional pain medication. Continued monitoring for cardiac standpoint as well would be beneficial. Repeat troponin was completed. No reaction to the CT dye. Hospitalist will be contacted. Patient updated on findings of left lower lung nodule for outpatient follow-up purposes. Report questions possible arcuate ligament syndrome. 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 No other severe acute intra- abdominal pathology reported. DIAGNOSIS: Pancreatitis, chest pain DISPOSITION: Hospitalist will evaluate Patient was agreeable with this plan. 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 Clark Aortic atherosclerosis (Chronic) Noted on AAA screen Hypercholesterolemia (Chronic) Hypertension (Chronic) Impaired fasting glucose (Chronic) Seborrheic dermatitis (Chronic) Tubular adenoma of colon (Chronic) Vitamin D deficiency (Chronic) Medical History History of prostate cancer History of non-ST elevation myocardial infarction (NSTEMI) Rotator cuff syndrome of left shoulder Coronary artery disease Aortic atherosclerosis History of basal cell carcinoma Hypercholesterolemia Hypertension Impaired fasting glucose Seborrheic dermatitis Surgical History Status post left knee replacement History of prostate biopsy History of tooth extraction History of basal cell carcinoma excision History of bilateral cataract extraction History of cardiac cath History of left knee replacement S/P CABG x 3 History of tonsillectomy History of appendectomy History of vasectomy Family History Other Hypertension No family history of adverse response to anesthesia No family history of bleeding disorder Social History Smoking Status: Never smoker Tobacco Type: Pipe Age Started Using Tobacco: 18; Age Quit Using Tobacco: 68; Second Hand Exposure: No; Do You Dip or Chew Tobacco: No; Hx Alcohol Use: Yes Alcohol type: wine Hx Substance Use: No Preferred Language: [place]an Communication Ability: Effective Hearing Ability: Hard of Hearing [employer] Manager Required: No Beliefs That Will Affect Care: None marital status: Current Living Situation: Spouse current occupational status: employed 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 Feels Safe at Home: Yes Dental Care, Regularly: Yes Physical Activity Frequency: 3-4 Times per Week Assistive Devices: Cane, Glasses and Walker Allergies Allergies Allergy/AdvReac Type Severity Reaction Status Date / Time Penicillins Allergy Intermediate Hives Verified 03/02/24 21:22 SHASHI Inhibitors AdvReac Intermediate Cough Verified 03/02/24 21:22 iodine AdvReac Intermediate Vomiting Verified 03/02/24 21:22 shellfish derived AdvReac Intermediate Vomiting Verified 03/02/24 21:22 Any saltwater fish Allergy Intermediate Vomiting Uncoded 03/02/24 21:22 Home Meds Home Medications Medication Instructions Recorded Confirmed mecobalamin (vitamin B12) 1,000 1,000 mcg PO QAM 10/19/22 03/02/24 mcg chewable tablet acetaminophen 650 mg 1,300 mg PO Q12H 08/07/23 03/02/24 tablet,extended release (Tylenol Arthritis Pain) docusate sodium 100 mg capsule 100 mg PO BID 08/25/23 03/02/24 (Colace) Miralax Gummies 3 tab PO DAILY 03/02/24 03/02/24 aspirin 81 mg chewable tablet 81 mg PO DAILY 03/02/24 03/02/24 cholecalciferol (vitamin D3) 25 50 mcg PO DAILY 03/02/24 03/02/24 mcg (1,000 unit) chewable tablet (Vitamin D3) nitroglycerin 0.4 mg sublingual 0.4 mg sublingual DIRECTED PRN 03/02/24 03/02/24 tablet (Nitrostat) Chest Pain Previous Rx's Medication Instructions Recorded atorvastatin 80 mg tablet (Lipitor) 80 mg PO DAILY #90 tabs 12/09/23 metoprolol tartrate 25 mg tablet 25 mg PO BID #180 tabs 12/09/23 losartan 50 mg tablet 50 mg PO DAILY #90 tabs 02/03/24 Results & Data (ED) Vital Signs Vital Signs - 24 hr 03/02/24 17:49 03/02/24 18:24 03/02/24 18:24 Temperature 36.9 C Temperature Source Temporal Artery Scan Pulse Rate 69 Pulse Rate from SpO2 Sensor Respiratory Rate 19 Respiratory Effort / Characteristics Non-Labored Spontaneous Respiratory Depth Normal Blood Pressure 195/96 H Blood Pressure Mean 129 Pulse Oximetry 96 97 97 Oxygen Delivery Method Room Air Room Air Room Air Oxygen Flow Rate 0 Sepsis Recent Fever Within 48 Hours No Sepsis New/Unexplained Change in Mental Status No Sepsis Action Taken by Nursing No Action Required 03/02/24 18:30 03/02/24 18:30 03/02/24 18:30 Temperature Temperature Source Pulse Rate 69 Pulse Rate from SpO2 Sensor 68 Respiratory Rate 24 Respiratory Effort / Characteristics Respiratory Depth Blood Pressure 160/86 H 160/86 H Blood Pressure Mean 108 108 Pulse Oximetry 95 Oxygen Delivery Method Oxygen Flow Rate Sepsis Recent Fever Within 48 Hours Sepsis New/Unexplained Change in Mental Status Sepsis Action Taken by Nursing 03/02/24 18:33 03/02/24 19:03 03/02/24 19:39 Temperature Temperature Source Pulse Rate 72 74 78 Pulse Rate from SpO2 Sensor 75 76 Respiratory Rate 18 23 Respiratory Effort / Characteristics Respiratory Depth Blood Pressure Blood Pressure Mean Pulse Oximetry 93 94 Oxygen Delivery Method Room Air Oxygen Flow Rate Sepsis Recent Fever Within 48 Hours Sepsis New/Unexplained Change in Mental Status Sepsis Action Taken by Nursing 03/02/24 20:21 03/02/24 20:27 03/02/24 21:00 Temperature Temperature Source Pulse Rate 70 Pulse Rate from SpO2 Sensor 83 81 Respiratory Rate 6 L 17 Respiratory Effort / Characteristics Respiratory Depth Blood Pressure 150/91 H Blood Pressure Mean 119 Pulse Oximetry 94 94 Oxygen Delivery Method Oxygen Flow Rate Sepsis Recent Fever Within 48 Hours Sepsis New/Unexplained Change in Mental Status Sepsis Action Taken by Nursing 03/02/24 21:27 03/02/24 21:30 03/02/24 21:30 Temperature Temperature Source Pulse Rate 78 Pulse Rate from SpO2 Sensor 79 Respiratory Rate 18 Respiratory Effort / Characteristics Respiratory Depth Blood Pressure 155/82 H 155/82 H Blood Pressure Mean 119 119 Pulse Oximetry 92 Oxygen Delivery Method Oxygen Flow Rate Sepsis Recent Fever Within 48 Hours Sepsis New/Unexplained Change in Mental Status Sepsis Action Taken by Nursing 03/02/24 21:33 Temperature Temperature Source Pulse Rate 78 Pulse Rate from SpO2 Sensor 79 Respiratory Rate 19 Respiratory Effort / Characteristics Respiratory Depth Blood Pressure Blood Pressure Mean Pulse Oximetry 91 Oxygen Delivery Method Oxygen Flow Rate Sepsis Recent Fever Within 48 Hours Sepsis New/Unexplained Change in Mental Status Sepsis Action Taken by Nursing Laboratory Data 03/02/24 18:01 03/02/24 18:01 Lab Results 03/02/24 03/02/24 Range/Units 18:01 21:22 WBC 9.73 (4.8-10.8) K/ul RBC 4.53 L (4.70-6.10) M/uL Hgb 14.1 (14.0-18.0) g/dl Hct 43.4 (42.0-52.0) % MCV 95.8 (80.0-100.0) fL MCH 31.1 (25.0-34.0) pg MCHC 32.5 (32.0-36.0) g/dL RDW Std Deviation 49.1 H (36.4-46.3) fL RDW Coeff of Gregory 13.9 (11.5-14.5) % Plt Count 198 (130-400) K/uL MPV 9.1 L (9.4-12.4) fL Immature Gran % (Auto) 0.5 % Neut % (Auto) 80.8 % Lymph % (Auto) 9.1 % Thomas % (Auto) 8.0 % Eos % (Auto) 1.1 % Baso % (Auto) 0.5 % Neut # (Auto) 7.85 H (1.40-6.50) K/uL Lymph # (Auto) 0.89 L (1.20-3.40) K/uL Thomas # (Auto) 0.78 H (0.11-0.59) K/uL Eos # (Auto) 0.11 (0.00-0.50) K/uL Baso # (Auto) 0.05 (0.00-0.20) K/uL Immature Gran # (Auto) 0.05 (0.01-0.20) K/uL PT 10.6 (9.0-12.0) Seconds INR 1.0 (0.9-1.1) APTT 27 (21-31) Seconds PTT Ratio 1.0 Sodium 139 (136-145) mmol/L Potassium 4.3 (3.5-5.1) mmol/L Chloride 105 (98-107) mmol/L Carbon Dioxide 28 (21-32) mmol/L Anion Gap 6 (3-11) BUN 21 (6-23) mg/dl Creatinine 0.77 (0.6-1.4) mg/dl Est Cr Clr Drug Dosing 66.6 ml/min Est GFR ( Amer) 95.2 ml/min Est GFR (Non-Af Amer) 82.2 ml/min BUN/Creatinine Ratio 27.3 H (10-20) Glucose 100 H (70-99(Fasting)) mg/dl Calcium 9.6 (8.6-10.3) mg/dl Total Bilirubin 0.4 (0.2-1.0) mg/dl AST 19 (13-39) U/L ALT 33 (7-52) U/L Alkaline Phosphatase 104 (34-104) U/L Troponin I High Sens 2.8 3.5 (0-20) pg/ml Total Protein 7.4 (6.0-8.3) gm/dl Albumin 4.7 (3.4-5.0) gm/dl Globulin 2.7 (2.5-4.0) gm/dl Albumin/Globulin Ratio 1.7 (0.9-2) Lipase 2609 H (11-82) U/L Administered Medications Discontinued Medications Diphenhydramine HCl (Diphenhydramine 50 Mg/Ml Vial) 25 mg IV NOW STA Stop: 03/02/24 18:47 Last Admin: 03/02/24 19:22 Dose: 25 mg Documented By: KARTIK Ioversol (Optiray 320 125ml) 118 ml IV ONCE ONE Stop: 03/02/24 20:12 Last Admin: 03/02/24 20:15 Dose: 118 ml Documented By: JOSE EDUARDO Methylprednisolone (Methylprednisolone 125 Mg/2 Ml Vial) 125 mg IV NOW STA Stop: 03/02/24 18:47 Last Admin: 03/02/24 19:22 Dose: 125 mg Documented By: KARTIK Nitroglycerin (Nitroglycerin Sl 0.4 Mg/Tab Tab) 0.4 mg SL NOW STA Stop: 03/02/24 18:46 Last Admin: 03/02/24 19:08 Dose: 0.4 mg Documented By: KARTIK Ondansetron HCl (Ondansetron Inj 2 Mg/Ml 2 Ml Vial) 4 mg IV NOW STA Stop: 03/02/24 18:47 Last Admin: 03/02/24 19:22 Dose: 4 mg Documented By: KARTIK Imaging Data Radiologist's Impression: Chest X-Ray 03/02/24 17:53 XR chest 1V portable HISTORY: Chest pain, nonspecific COMPARISON: Chest 06/01/2023. FINDINGS: No pneumothorax. Stable blunting left lateral costophrenic sulcus suggestive of scarring. There are few stable linear densities the left lung base which also favors scarring. No new focal lung consolidations to suggest pneumonia. No evidence for pulmonary edema. The heart is normal in size. There are poststernotomy changes. There are old left-sided rib fractures. Chronic deformity within the distal left clavicle, unchanged. IMPRESSION: No significant change compared to the prior study. No acute process. ACT 112: Negative or not required by law. Electronically signed by: Mj Escobar M.D. 03/02/2024 6:19 PM Abdomen/Pelvis CTA 03/02/24 18:47 Exam(s): CTA ABDOMEN + PELVIS With Contrast IV Amt: 118ML OPTIRAY 320 EXAM: CT Angiography Abdomen and Pelvis With Intravenous Contrast CLINICAL HISTORY: Reason for exam: LCP to abd pain, HTN. TECHNIQUE: Axial computed tomographic angiography images of the abdomen and pelvis with intravenous contrast. CTDI is 20.61 mGy and DLP is 1387.1 mGy-cm. Automated exposure control was utilized for the study. A dose lowering technique was utilized adhering to the principles of ALARA. 3D and MIP reconstructed images were created and reviewed. CONTRAST: Patient received 118ML OPTIRAY 320 of IV contrast COMPARISON: No relevant prior studies available. FINDINGS: VASCULATURE: Aorta: No acute findings. No abdominal aortic aneurysm. No dissection. 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 This appears to be associated with the diaphragmatic christopher. Renal arteries: No acute findings. No occlusion or significant stenosis. 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 Lung bases: Please see separate dictation for details little intrathoracic contents. ABDOMEN: Liver: Unremarkable. No mass. Gallbladder and bile ducts: Unremarkable. No calcified stones. No ductal dilation. Pancreas: Unremarkable. No ductal dilation. No mass. Spleen: Unremarkable. No splenomegaly. Adrenals: Unremarkable. No mass. Kidneys and ureters: Unremarkable. No hydronephrosis. No solid mass. Stomach and bowel: Unremarkable. No obstruction. No mucosal thickening. PELVIS: Appendix: No findings to suggest acute appendicitis. Bladder: Unremarkable. No mass. Reproductive: Metallic beads within the prostate sequela from prostate radiation therapy. ABDOMEN and PELVIS: Intraperitoneal space: Unremarkable. No significant fluid collection. No free air. Bones/joints: Postoperative changes right hip arthroplasty fat- containing inguinal hernia containing fat. No acute fracture. No dislocation. Soft tissues: See above. Lymph nodes: Unremarkable. No enlarged lymph nodes. IMPRESSION: No acute findings in the arteries of the abdomen and pelvis. 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 This may be variable depending on the patient's phase of respiration. Findings may represent arcuate ligament syndrome. Clinical correlation is recommended. Electronically signed by: Sudarshan Hilton MD 03/02/24 22:52 PM Chest CTA 03/02/24 18:47 Exam(s): CTA CHEST W/WO Contrast IV Amt: 118ML OPTIRAY 320 EXAM: CT Angiography Chest Without and With Intravenous Contrast CLINICAL HISTORY: Reason for exam: L CP, HTN, abd pain. TECHNIQUE: Axial computed tomographic angiography images of the chest without and with intravenous contrast. CTDI is 18.1 mGy and DLP is 575.44 mGy-cm. Automated exposure control was utilized for the study. A dose lowering technique was utilized adhering to the principles of ALARA. MIP reconstructed images were created and reviewed. CONTRAST: Patient received 118ML OPTIRAY 320 of IV contrast COMPARISON: 05/04/2021 FINDINGS: Pulmonary arteries: Unremarkable. No pulmonary embolism. Aorta: No acute findings. No thoracic aortic aneurysm. Lungs: Calcified granuloma right lower lobe. 3.1 x 0.8 cm pulmonary mass left lower lobe axial image 36 series 2. Mild right basilar dependent atelectasis. Pleural space: Unremarkable. No significant effusion. No pneumothorax. Heart: Cardiomegaly. Coronary artery calcifications. Postoperative changes CABG. No significant pericardial effusion. No evidence of RV dysfunction. Bones/joints: Postoperative changes median sternotomy. No acute fracture. No dislocation. Soft tissues: Unremarkable. Lymph nodes: Unremarkable. No enlarged lymph nodes. Spleen: Calcified granulomata within the spleen. IMPRESSION: No 0.1 cm left lower lobe pulmonary mass. PET scan recommended for further evaluation. This is much more prominent on the current exam when compared with the prior study dated 05/04/2021. Electronically signed by: Sudarshan Hilton MD 03/02/24 22:43 PM Discharge Plan Visit Data Chief Complaint: Chest Pain Stated Complaint: ABD INTO CHEST PAIN ED Provider: Chintan Olivera Discharge Problem: Acute pancreatitis, Chest pain Patient Disposition: Admitted As Inpatient Discharge Instructions Interventions: ED Discharge Assessment Last Done: 03/02/24 22:56
[2024-03-02] MEDS: OPTIRAY 320 125ml IV ONE (20:15)
--- NOTE | 2024-03-02 21:35 | History & Physical Report ---
Date of Service March 02, 2024 Assessment & Plan (1) Acute pancreatitis: Plan: 84yo male presenting with abdominal discomfort and left sided chest pain. Found to have marked elevation of [id number]. Patient's pain is not quite typical for acute pancreatitis - no findings present on CT scan. -Will admit to medical with telemetry -Maintain NPO status -IVF with LR at 1200mL/hr -Tylenol and Morphine as needed for pain -Zofran as needed for nausea (2) Chest pain: Plan: Suspect non-cardiac source. No acute changes on EKG. Troponin x 2 unremarkable. 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 No evidence of limb ischemia on exam -Continue ASA and Atorvastatin -Vascular Surgery consultation appreciated (4) Pulmonary nodule: Plan: Incidental finding on CT imaging - 0.1cm LLL pulmonary mass -Recommend PET scan for further evaluation Plan Hypertension - chronic -Continue Losartan and Metoprolol F/E/N - LR at 200mL/hr, monitor electrolytes, NPO for now PPx - Lovenox Code - Full per discussion with patient Dispo - Admit to medical with telemetry History of Present Illness Chief Complaint: abdominal discomfort Primary Care Provider: Letitia Jordan MD sAif Fink is a pleasant 84yo male with history of CAD s/p CABG (3V performed at [facility] [place]), HTN presenting with abdominal pain. Patient has been in his usual state of health. When he woke this AM he reports having some mild abdominal pain and stomach upset. Around 17:00 he developed left sided chest discomfort - dull, aching pain with occasional feelings of sharp and stabbing pain. Pain was non-exertional, non-pleuritic and non- positional. He had no associated nausea, diaphoresis or SOB. He took a SL Nitro at home with some improvement. Upon arrival to the ER patient afebrile, HD stable. He was still having some chest discomfort and was given an additional SL Nitro with improvement. Now free from chest pain and abdominal discomfort No additional complaints - specifically denies fever, chills, palpitations, cough, SOB, vomiting or diarrhea Patient with no recent medication changes. Does not consume alcohol. ER Course: Nitro Benadryl 25mg IV Solumedrol 125mg IV Zofran 4mg IV Allergies Allergy/AdvReac Type Severity Reaction Status Date / Time Penicillins Allergy Intermediate Hives Verified 03/02/24 21:22 SHASHI Inhibitors AdvReac Intermediate Cough Verified 03/02/24 21:22 iodine AdvReac Intermediate Vomiting Verified 03/02/24 21:22 shellfish derived AdvReac Intermediate Vomiting Verified 03/02/24 21:22 Any saltwater fish Allergy Intermediate Vomiting Uncoded 03/02/24 21:22 Home Medications Medication Instructions Recorded Confirmed Type mecobalamin (vitamin B12) 1,000 1,000 mcg PO QAM 10/19/22 03/02/24 History mcg chewable tablet acetaminophen 650 mg 1,300 mg PO Q12H 08/07/23 03/02/24 History tablet,extended release (Tylenol Arthritis Pain) docusate sodium 100 mg capsule 100 mg PO BID 08/25/23 03/02/24 History (Colace) atorvastatin 80 mg tablet (Lipitor) 80 mg PO DAILY #90 tabs 12/09/23 03/02/24 Rx metoprolol tartrate 25 mg tablet 25 mg PO BID #180 tabs 12/09/23 03/02/24 Rx losartan 50 mg tablet 50 mg PO DAILY #90 tabs 02/03/24 03/02/24 Rx Miralax Gummies 3 tab PO DAILY 03/02/24 03/02/24 History aspirin 81 mg chewable tablet 81 mg PO DAILY 03/02/24 03/02/24 History cholecalciferol (vitamin D3) 25 50 mcg PO DAILY 03/02/24 03/02/24 History mcg (1,000 unit) chewable tablet (Vitamin D3) nitroglycerin 0.4 mg sublingual 0.4 mg sublingual DIRECTED PRN 03/02/24 03/02/24 History tablet (Nitrostat) Chest Pain Past Med/Surg History Problem List (Updated 03/03/24 @ 01:41 by Gaye Gallego DO) Pulmonary nodule Iliac artery occlusion Chest pain (Acute) Acute pancreatitis (Acute) Status post right hip replacement Status post right knee replacement Status post left knee replacement 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 Clark Aortic atherosclerosis (Chronic) Noted on AAA screen Hypercholesterolemia (Chronic) Hypertension (Chronic) Impaired fasting glucose (Chronic) Seborrheic dermatitis (Chronic) Tubular adenoma of colon (Chronic) Vitamin D deficiency (Chronic) Surgical History History of prostate biopsy History of tooth extraction all teeth removed History of basal cell carcinoma excision History of bilateral cataract extraction History of cardiac cath 12/2020 ([facility])- no stent > CABG x3 S/P CABG x 3 12/2020 [place] History of tonsillectomy History of appendectomy History of vasectomy Family History Other Hypertension No family history of adverse response to anesthesia No family history of bleeding disorder Social History Smoking Status: Never smoker Tobacco Type: Pipe Age Started Using Tobacco: 18; Age Quit Using Tobacco: 68; Second Hand Exposure: No; Do You Dip or Chew Tobacco: No; Hx Alcohol Use: No Hx Substance Use: No Preferred Language: Bhutanese Communication Ability: Effective Hearing Ability: Hard of Hearing Core Cutter Required: No Beliefs That Will Affect Care: None marital status: Current Living Situation: Spouse current occupational status: employed 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 Feels Safe at Home: Yes Safety Concerns: Feels Safe At This Time Dental Care, Regularly: Yes Physical Activity Frequency: 3-4 Times per Week Assistive Devices: Denture - Upper, Denture - Lower, Glasses and Hearing Aid - Bilateral Review of Systems Review of Systems: All systems reviewed & are unremarkable except as noted in HPI & below Physical Exam Physical Exam: General: patient resting comfortably, NAD, non-toxic in appearance, AA&O x 4 Skin: warm, dry, intact, no rashes or lesions HEENT: NC/AT, PERRL, EOMI, anicteric sclera, conjunctiva without injection, external ear normal to inspection and nontender, nares patent, moist mucus membranes, dentition intact, no oropharyngeal lesions, neck supple, trachea midline, no LAD, no thyromegaly, no JVD Heart: +S1/S2, regular, no m/r/g, no reproducible chest wall pain Lungs: equal air entry bilaterally, no rales/rhonchi/wheezes Abd: +BS, soft, mild tenderness to epigastric region without rebound or guarding, ND, no masses/organomegaly/ascites Ext: warm, 2+ pulses in UE/LE bilaterally, no clubbing/cyanosis or edema Neuro: nonfocal, patient AA&O x 4, speech intact, no facial droop, moving all extremities on command with equal strength 5/5 Results & Data Results & Data Vital Signs (Past 12 Hours) Vital Signs Temp Pulse Resp BP Pulse Ox O2 Del Method O2 Flow Rate 03/02/24 19:39 78 23 94 03/02/24 19:03 74 18 93 Room Air 03/02/24 18:33 72 03/02/24 18:30 160/86 H 03/02/24 18:30 160/86 H 03/02/24 18:30 69 24 95 03/02/24 18:24 97 Room Air 03/02/24 18:24 97 Room Air 0 03/02/24 17:49 36.9 C 69 19 195/96 H 96 Room Air Laboratory Results Laboratory Results WBC 9.73 K/ul (4.8-10.8) 03/02/24 18:01 RBC 4.53 M/uL (4.70-6.10) L 03/02/24 18:01 Hgb 14.1 g/dl (14.0-18.0) 03/02/24 18:01 Hct 43.4 % (42.0-52.0) 03/02/24 18:01 MCV 95.8 fL (80.0-100.0) 03/02/24 18:01 MCH 31.1 pg (25.0-34.0) 03/02/24 18:01 MCHC 32.5 g/dL (32.0-36.0) 03/02/24 18:01 RDW Std Deviation 49.1 fL (36.4-46.3) H 03/02/24 18:01 RDW Coeff of Gregory 13.9 % (11.5-14.5) 03/02/24 18:01 Plt Count 198 K/uL (130-400) 03/02/24 18:01 MPV 9.1 fL (9.4-12.4) L 03/02/24 18:01 Immature Gran % (Auto) 0.5 % 03/02/24 18:01 Neut % (Auto) 80.8 % 03/02/24 18:01 Lymph % (Auto) 9.1 % 03/02/24 18:01 Calvert % (Auto) 8.0 % 03/02/24 18:01 Eos % (Auto) 1.1 % 03/02/24 18:01 Baso % (Auto) 0.5 % 03/02/24 18:01 Neut # (Auto) 7.85 K/uL (1.40-6.50) H 03/02/24 18:01 Lymph # (Auto) 0.89 K/uL (1.20-3.40) L 03/02/24 18:01 Calvert # (Auto) 0.78 K/uL (0.11-0.59) H 03/02/24 18:01 Eos # (Auto) 0.11 K/uL (0.00-0.50) 03/02/24 18:01 Baso # (Auto) 0.05 K/uL (0.00-0.20) 03/02/24 18:01 Immature Gran # (Auto) 0.05 K/uL (0.01-0.20) 03/02/24 18:01 PT 10.6 Seconds (9.0-12.0) 03/02/24 18:01 INR 1.0 (0.9-1.1) 03/02/24 18:01 APTT 27 Seconds (21-31) 03/02/24 18:01 PTT Ratio 1.0 03/02/24 18:01 Sodium 139 mmol/L (136-145) 03/02/24 18:01 Potassium 4.3 mmol/L (3.5-5.1) 03/02/24 18:01 Chloride 105 mmol/L (98-107) 03/02/24 18:01 Carbon Dioxide 28 mmol/L (21-32) 03/02/24 18:01 Anion Gap 6 (3-11) 03/02/24 18:01 BUN 21 mg/dl (6-23) 03/02/24 18:01 Creatinine 0.77 mg/dl (0.6-1.4) 03/02/24 18:01 Est Cr Clr Drug Dosing 66.6 ml/min 03/02/24 18:01 Est GFR ( Amer) 95.2 ml/min 03/02/24 18:01 Est GFR (Non-Af Amer) 82.2 ml/min 03/02/24 18:01 BUN/Creatinine Ratio 27.3 (10-20) H 03/02/24 18:01 Glucose 100 mg/dl (70-99(Fasting)) H 03/02/24 18:01 Calcium 9.6 mg/dl (8.6-10.3) 03/02/24 18:01 Total Bilirubin 0.4 mg/dl (0.2-1.0) 03/02/24 18:01 AST 19 U/L (13-39) 03/02/24 18:01 ALT 33 U/L (7-52) 03/02/24 18:01 Alkaline Phosphatase 104 U/L (34-104) 03/02/24 18:01 Troponin I High Sens 3.5 pg/ml (0-20) 03/02/24 21:22 C-Reactive Protein 2.17 mg/dl (0-0.5) H 03/02/24 18:01 Total Protein 7.4 gm/dl (6.0-8.3) 03/02/24 18:01 Albumin 4.7 gm/dl (3.4-5.0) 03/02/24 18:01 Globulin 2.7 gm/dl (2.5-4.0) 03/02/24 18:01 Albumin/Globulin Ratio 1.7 (0.9-2) 03/02/24 18:01 Triglycerides 194 mg/dl (0-150) H 03/02/24 18:01 Cholesterol 138 mg/dl (0-200) 03/02/24 18:01 LDL Cholesterol, Calc 55 mg/dl 03/02/24 18:01 VLDL Cholesterol, Calc 39 mg/dl (0-30) H 03/02/24 18:01 HDL Cholesterol 44 mg/dl 03/02/24 18:01 Cholesterol/HDL Ratio 3.1 (0-5) 03/02/24 18:01 Lipase 2609 U/L (11-82) H 03/02/24 18:01 Impressions Chest X-Ray 03/02/24 17:53 XR chest 1V portable HISTORY: Chest pain, nonspecific COMPARISON: Chest 06/01/2023. FINDINGS: No pneumothorax. Stable blunting left lateral costophrenic sulcus suggestive of scarring. There are few stable linear densities the left lung base which also favors scarring. No new focal lung consolidations to suggest pneumon ia. No evidence for pulmonary edema. The heart is normal in size. There are poststernotomy changes. There are old left-sided rib fractures. Chronic deformity within the distal left clavicle, unchanged. IMPRESSION: No significant change compared to the prior study. No acute process. ACT 112: Negative or not required by law. Electronically signed by: Mj Escobar M.D. 03/02/2024 6:19 PM Abdomen/Pelvis CTA 03/02/24 18:47 Exam(s): CTA ABDOMEN + PELVIS With Contrast IV Amt: 118ML OPTIRAY 320 EXAM: CT Angiography Abdomen and Pelvis With Intravenous Contrast CLINICAL HISTORY: Reason for exam: LCP to abd pain, HTN. TECHNIQUE: Axial computed tomographic angiography images of the abdomen and pelvis with intravenous contrast. CTDI is 20.61 mGy and DLP is 1387.1 mGy-cm. Automated exposure control was utilized for the study. A dose lowering technique was utilized adhering to the principles of ALARA. 3D and MIP reconstructed images were created and reviewed. CONTRAST: Patient received 118ML OPTIRAY 320 of IV contrast COMPARISON: No relevant prior studies available. FINDINGS: VASCULATURE: Aorta: No acute findings. No abdominal aortic aneurysm. No dissection. 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 This appears to be associated with the diaphragmatic christopher. Renal arteries: No acute findings. No occlusion or significant stenosis. 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 Lung bases: Please see separate dictation for details little intrathoracic contents. ABDOMEN: Liver: Unremarkable. No mass. Gallbladder and bile ducts: Unremarkable. No calcified stones. No ductal dilation. Pancreas: Unremarkable. No ductal dilation. No mass. Spleen: Unremarkable. No splenomegaly. Adrenals: Unremarkable. No mass. Kidneys and ureters: Unremarkable. No hydronephrosis. No solid mass. Stomach and bowel: Unremarkable. No obstruction. No mucosal thickening. PELVIS: Appendix: No findings to suggest acute appendicitis. Bladder: Unremarkable. No mass. Reproductive: Metallic beads within the prostate sequela from prostate radiation therapy. ABDOMEN and PELVIS: Intraperitoneal space: Unremarkable. No significant fluid collection. No free air. Bones/joints: Postoperative changes right hip arthroplasty fat- containing inguinal hernia containing fat. No acute fracture. No dislocation. Soft tissues: See above. Lymph nodes: Unremarkable. No enlarged lymph nodes. IMPRESSION: No acute findings in the arteries of the abdomen and pelvis. 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 This may be variable depending on the patient's phase of respiration. Findings may represent arcuate ligament syndrome. Clinical correlation is recommended. Electronically signed by: Sudarshan Hilton MD 03/02/24 22:52 PM Chest CTA 03/02/24 18:47 Exam(s): CTA CHEST W/WO Contrast IV Amt: 118ML OPTIRAY 320 EXAM: CT Angiography Chest Without and With Intravenous Contrast CLINICAL HISTORY: Reason for exam: L CP, HTN, abd pain. TECHNIQUE: Axial computed tomographic angiography images of the chest without and with intravenous contrast. CTDI is 18.1 mGy and DLP is 575.44 mGy-cm. Automated exposure control was utilized for the study. A dose lowering technique was utilized adhering to the principles of ALARA. MIP reconstructed images were created and reviewed. CONTRAST: Patient received 118ML OPTIRAY 320 of IV contrast COMPARISON: 05/04/2021 FINDINGS: Pulmonary arteries: Unremarkable. No pulmonary embolism. Aorta: No acute findings. No thoracic aortic aneurysm. Lungs: Calcified granuloma right lower lobe. 3.1 x 0.8 cm pulmonary mass left lower lobe axial image 36 series 2. Mild right basilar dependent atelectasis. Pleural space: Unremarkable. No significant effusion. No pneumothorax. Heart: Cardiomegaly. Coronary artery calcifications. Postoperative changes CABG. No significant pericardial effusion. No evidence of RV dysfunction. Bones/joints: Postoperative changes median sternotomy. No acute fracture. No dislocation. Soft tissues: Unremarkable. Lymph nodes: Unremarkable. No enlarged lymph nodes. Spleen: Calcified granulomata within the spleen. IMPRESSION: No 0.1 cm left lower lobe pulmonary mass. PET scan recommended for further evaluation. This is much more prominent on the current exam when compared with the prior study dated 05/04/2021. Electronically signed by: Sudarshan Hilton MD 03/02/24 22:43 PM ECG Additional Comments: EKG with SR at 71bpm with occasional PVCs. RBBB. No acute ischemic changes. DX=678, JPA=421, EIN=642. Code Status & VTE Plan VTE Prophylaxis Plan VTE Prophylaxis will be ordered: Yes PG Care Time/CCT Total # of Minutes Spent Total Time Spent with Patient: Total time spent is greater than 50% in coordination of care (as documented) at patient's floor/unit and/or counseling patient: Coding Level of Care Code 86519 INT INP/OBS CARE 3/75MIN Diagnoses Acute pancreatitis K85.90 Chest pain R07.9 Iliac artery occlusion I74.5 Pulmonary nodule R91.1
--- NOTE | 2024-03-02 22:44 | CT Scan Report ---
Exam(s): CTA CHEST W/WO Contrast IV Amt: 118ML OPTIRAY 320 EXAM: CT Angiography Chest Without and With Intravenous Contrast CLINICAL HISTORY: Reason for exam: L CP, HTN, abd pain. TECHNIQUE: Axial computed tomographic angiography images of the chest without and with intravenous contrast. CTDI is 18.1 mGy and DLP is 575.44 mGy-cm. Automated exposure control was utilized for the study. A dose lowering technique was utilized adhering to the principles of ALARA. MIP reconstructed images were created and reviewed. CONTRAST: Patient received 118ML OPTIRAY 320 of IV contrast COMPARISON: 05/04/2021 FINDINGS: Pulmonary arteries: Unremarkable. No pulmonary embolism. Aorta: No acute findings. No thoracic aortic aneurysm. Lungs: Calcified granuloma right lower lobe. 3.1 x 0.8 cm pulmonary mass left lower lobe axial image 36 series 2. Mild right basilar dependent atelectasis. Pleural space: Unremarkable. No significant effusion. No pneumothorax. Heart: Cardiomegaly. Coronary artery calcifications. Postoperative changes CABG. No significant pericardial effusion. No evidence of RV dysfunction. Bones/joints: Postoperative changes median sternotomy. No acute fracture. No dislocation. Soft tissues: Unremarkable. Lymph nodes: Unremarkable. No enlarged lymph nodes. Spleen: Calcified granulomata within the spleen. IMPRESSION: No 0.1 cm left lower lobe pulmonary mass. PET scan recommended for further evaluation. This is much more prominent on the current exam when compared with the prior study dated 05/04/2021. Electronically signed by: Sudarshan Hilton MD 03/02/24 22:43 PM
--- NOTE | 2024-03-02 22:53 | CT Scan Report ---
Exam(s): CTA ABDOMEN + PELVIS With Contrast IV Amt: 118ML OPTIRAY 320 EXAM: CT Angiography Abdomen and Pelvis With Intravenous Contrast CLINICAL HISTORY: Reason for exam: LCP to abd pain, HTN. TECHNIQUE: Axial computed tomographic angiography images of the abdomen and pelvis with intravenous contrast. CTDI is 20.61 mGy and DLP is 1387.1 mGy-cm. Automated exposure control was utilized for the study. A dose lowering technique was utilized adhering to the principles of ALARA. 3D and MIP reconstructed images were created and reviewed. CONTRAST: Patient received 118ML OPTIRAY 320 of IV contrast COMPARISON: No relevant prior studies available. FINDINGS: VASCULATURE: Aorta: No acute findings. No abdominal aortic aneurysm. No dissection. 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 This appears to be associated with the diaphragmatic christopher. Renal arteries: No acute findings. No occlusion or significant stenosis. 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 Lung bases: Please see separate dictation for details little intrathoracic contents. ABDOMEN: Liver: Unremarkable. No mass. Gallbladder and bile ducts: Unremarkable. No calcified stones. No ductal dilation. Pancreas: Unremarkable. No ductal dilation. No mass. Spleen: Unremarkable. No splenomegaly. Adrenals: Unremarkable. No mass. Kidneys and ureters: Unremarkable. No hydronephrosis. No solid mass. Stomach and bowel: Unremarkable. No obstruction. No mucosal thickening. PELVIS: Appendix: No findings to suggest acute appendicitis. Bladder: Unremarkable. No mass. Reproductive: Metallic beads within the prostate sequela from prostate radiation therapy. ABDOMEN and PELVIS: Intraperitoneal space: Unremarkable. No significant fluid collection. No free air. Bones/joints: Postoperative changes right hip arthroplasty fat- containing inguinal hernia containing fat. No acute fracture. No dislocation. Soft tissues: See above. Lymph nodes: Unremarkable. No enlarged lymph nodes. IMPRESSION: No acute findings in the arteries of the abdomen and pelvis. 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 This may be variable depending on the patient's phase of respiration. Findings may represent arcuate ligament syndrome. Clinical correlation is recommended. Electronically signed by: Sudarshan Hilton MD 03/02/24 22:52 PM
[2024-03-02] MEDS ORDERED: MoRPHine SULFATE 4 MG/ML 1 ML CARP\\VIAL IV PRN (22:56)
[2024-03-02] MEDS ORDERED: POLYETHYLENE (MIRALAX) 17 GM PACK PO PRN (22:56)
[2024-03-02] MEDS ORDERED: ACETAMINOPHEN 325 MG TAB PO PRN (22:56)
[2024-03-02] MEDS ORDERED: ONDANSETRON INJ 2 MG/ML 2 ML VIAL IV PRN (22:56)
[2024-03-02] MEDS ORDERED: MoRPHine SULFATE 2 MG/ML CARP IV PRN (22:56)
[2024-03-02 23:17] LABS: C Reactive Protein 2.17 mg/dl (0-0.5)
[2024-03-02 23:24] LABS: Chol HDL Ratio 3.1 (0-5)
[2024-03-03] MEDS: ENOXAPARIN INJ 40 MG/0.4 ML SYR SQ SCH (01:00)
[2024-03-03] MEDS: LACTATED RINGER'S 1,000 ML IV SCH (01:02)
[2024-03-03 03:17] VITALS: RESP 17
[2024-03-03 06:10] VITALS: BP 169/94; PULSE 89; O2SAT 91
[2024-03-03 06:21] LABS: Hematocrit (blood only) 41.9 % (42.0-52.0); Hemoglobin 13.8 g/dl (14.0-18.0); Mean Corpuscular Hemoglobin 31.1 pg (25.0-34.0); Mean Corpuscular Hgb Conc 32.9 g/dL (32.0-36.0); Mean Corpuscular Volume 94.4 fL (80.0-100.0); Mean Platelet Volume 9.2 fL (9.4-12.4); Platelet Count 180 K/uL (130-400); RDW Coefficient of Variation 13.4 % (11.5-14.5); RDW Standard Deviation 46.7 fL (36.4-46.3); Red Blood Count 4.44 M/uL (4.70-6.10); White Blood Count 7.41 K/ul (4.8-10.8)
[2024-03-03 06:35] LABS: Albumin Level 4.1 gm/dl (3.4-5.0); Bilirubin Direct 0.1 mg/dl (0-0.2); Bilirubin,Total 0.6 mg/dl (0.2-1.0); Calcium 9.3 mg/dl (8.6-10.3); Creatinine Clr Calc Pharmacy 80.2 ml/min; Est GFR (African American) 102.8 ml/min; Est GFR (Non-African American) 88.7 ml/min; Potassium 4.1 mmol/L (3.5-5.1)
--- NOTE | 2024-03-03 06:35 | Electrocardiogram Report ---
Test Reason : Blood Pressure : / mmHG Vent. Rate : 071 BPM Atrial Rate : 071 BPM P-R Int : 184 ms QRS Dur : 126 ms QT Int : 446 ms P-R-T Axes : 037 028 030 degrees QTc Int : 484 ms Sinus rhythm with occasional Premature ventricular complexes Right bundle branch block Abnormal ECG Confirmed by Tim Guerrero ([id number]) on 03/03/2024 6:35:25 AM Referred By: REFERRED SELF Confirmed By:Kraig Guerrero
[2024-03-03] MEDS: LOSARTAN POTASSIUM 50 MG TAB PO SCH (08:20)
[2024-03-03] MEDS: ATORVASTATIN 40 MG TAB PO SCH (08:20)
[2024-03-03] MEDS: METOPROLOL TARTRATE 25 MG TAB PO SCH (08:21)
[2024-03-03] MEDS: DOCUSATE SODIUM 100 MG CAP PO SCH (08:21)
[2024-03-03] MEDS: ASPIRIN 81 MG ECTAB PO SCH (08:21)
--- NOTE | 2024-03-03 08:58 | Communication Note ---
Date of Service: March 03, 2024 By CMS guidelines, a determination that the admission or continued stay is not medically necessary has been made by a member of the UR committee and a phys ician for this hospital stay, therefore a Code 44 will be completed and the Inpatient admission will be changed to outpatient.
--- NOTE | 2024-03-03 09:01 | Discharge Summary ---
Discharge Summary Date of Service March 03, 2024 Principal Dx & Hospital Course #1 = Principal Diagnosis (1) Acute pancreatitis: Ruled out. The patient is currently asymptomatic. His lipase levels are 2600 but no evidence of acute pancreatitis. This will need further evaluation as an outpatient. (2) Chest pain: Suspected angina pectoris relieved with sublingual nitroglycerin. No evidence of acute coronary syndrome. He is now asymptomatic. 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 No evidence of limb ischemia on exam (4) Pulmonary nodule: Left lower lobe incidental finding on CT imaging. This will need further outpatient follow-up Plan Home today, March 03. He was instructed to see his PCP as soon as possible for further evaluation of the left lower lobe mass and elevated lipase levels. He was given proper instruction on how to take sublingual nitroglycerin to use if he has any recurrent chest discomfort. Admission HPI Per Admitting Provider Asif Fink is a pleasant 84yo male with history of CAD s/p CABG (3V performed at [facility] in December 2020), HTN presenting with abdominal pain. Patient has been in his usual state of health. When he woke this AM he reports having some mild abdominal pain and stomach upset. Around 17:00 he developed left sided chest discomfort - dull, aching pain with occasional feelings of sharp and stabbing pain. Pain was non-exertional, non-pleuritic and non- positional. He had no associated nausea, diaphoresis or SOB. He took a SL Nitro at home with some improvement. Upon arrival to the ER patient afebrile, HD stable. He was still having some chest discomfort and was given an additional SL Nitro with improvement. Now free from chest pain and abdominal discomfort No additional complaints - specifically denies fever, chills, palpitations, cough, SOB, vomiting or diarrhea Patient with no recent medication changes. Does not consume alcohol. ER Course: Nitro Benadryl 25mg IV Solumedrol 125mg IV Zofran 4mg IV Discharge Exam General-alert and oriented x3, no fever, no chills HEENT-head atraumatic and normocephalic, pupils equal and reactive to light, extraocular muscles intact Neck-no lymphadenopathy or thyromegaly, trachea midline Chest-clear to auscultation. No rales, wheezing or rhonchi Cardiac-regular rate and rhythm, normal S1 and S2 Abdomen-normal bowel sounds, no hepatosplenomegaly Extremities-no cyanosis, clubbing, or edema Neuro-cranial nerves II through XII intact, motor and sensory function within normal limits, strength symmetrical, no focal deficits Psych-normal affect, normal mood Updated Medication List Medication Instructions Recorded Confirmed Type mecobalamin (vitamin B12) 1,000 1,000 mcg PO QAM 10/19/22 03/02/24 History mcg chewable tablet acetaminophen 650 mg 1,300 mg PO Q12H 08/07/23 03/02/24 History tablet,extended release (Tylenol Arthritis Pain) docusate sodium 100 mg capsule 100 mg PO BID 08/25/23 03/02/24 History (Colace) atorvastatin 80 mg tablet (Lipitor) 80 mg PO DAILY #90 tabs 12/09/23 03/02/24 Rx metoprolol tartrate 25 mg tablet 25 mg PO BID #180 tabs 12/09/23 03/02/24 Rx losartan 50 mg tablet 50 mg PO DAILY #90 tabs 02/03/24 03/02/24 Rx Miralax Gummies 3 tab PO DAILY 03/02/24 03/02/24 History aspirin 81 mg chewable tablet 81 mg PO DAILY 03/02/24 03/02/24 History cholecalciferol (vitamin D3) 25 50 mcg PO DAILY 03/02/24 03/02/24 History mcg (1,000 unit) chewable tablet (Vitamin D3) nitroglycerin 0.4 mg sublingual 0.4 mg sublingual DIRECTED PRN 03/02/24 03/02/24 History tablet (Nitrostat) Chest Pain Hospital Stay Data Consultations 03/02/24 21:17 ED Decision to Admit Stat 03/02/24 23:55 Consult Vascular Surgery Routine Diagnostic Imagining Performed 03/02/24 18:47 CTA abdomen pelvis w con [CT angio abdomen pelvis w con] Stat CTA chest dissec wo/w con [CT angio chest dissec wo/w con] Stat Pending Results Patient Have Any Pending Studies at Discharge: No Discharge Instructions Given to Patient (Per Discharging Provider) Use nitroglycerin under the tongue as directed for any recurrent chest discomfort. Follow-up with primary care provider soon as possible for further evaluation of left lower lobe lung mass and repeat lipase blood levels Total Time Total Time Spent Total Time Spent (In Minutes): 45 minutes Coding Level of Care Code 89038 INP/OBS DISCH >30 MIN Diagnoses Acute pancreatitis K85.90 Chest pain R07.9 Iliac artery occlusion I74.5 Pulmonary nodule R91.1
== END 2024-03-03 10:00 | disposition home or self-care (01) | DRG 303 ==
LOC: ED 17:39 → EDINP 21:34 → SUATTDRO 21:34 → EDINP 22:56